=== PATIENT | male | born 1940 | race Caucasian/White ===

== ENCOUNTER → 2016-03-07 | Outpatient (CLI) | payer MEDICARE ==
--- NOTE | 2016-03-08 23:25 | XR ---
EXAMINATION TYPE: XR chest 2V, Left rib series. DATE OF EXAM: 03/07/2016 3:07 PM COMPARISON: None HISTORY: 75-year-old male with cough and mid left lateral rib pain after injury last year. FINDINGS: Chest: The heart is upper limits of normal in size. Atherosclerotic arch calcifications. Mild interst itial prominence. Some fluid thickening the minor fissure. There are small bilateral pleural effusion s with a patchy bibasilar densities. High density nodule seen within the midlungs probably calcified granulomas. Left RIBS: No displaced left rib fracture is seen. IMPRESSION: 1. Correlate for CHF with pulmonary vascular congestion. 2. Small pleural effusions with adjacent bibasilar atelectasis and/or infiltrates. 3. No displaced left rib fracture seen. 4. High density nodules scattered in the mid lungs suggest calcified nodules from prior granulomatous disease.
== END | disposition home or self-care (01) ==
LOC: RADXRYALE 14:43
PROVIDERS: ATTEND Internal Medicine
DX: J90 Pleural effusion, not elsewhere classified (principal); R91.8 Other nonspecific abnormal finding of lung field
CPT/HCPCS: 71020

== ENCOUNTER 2016-03-12 21:26 | Inpatient (IN) | payer MEDICARE ==
[2016-03-12] MEDS ORDERED: NITROGLYCERIN OINT 1 INCH/GM PACKET TOPICAL STA (21:46)
[2016-03-12] MEDS ORDERED: FUROSEMIDE 10 MG/ML 4 ML VIAL IV STA (21:46)
--- NOTE | 2016-03-12 21:56 | ED ---
SOB HPI - General Chief Complaint: Shortness of Breath Stated Complaint: SULAIMAN Time Seen by Provider: 03/12/16 21:37 Source: patient, EMS, RN notes reviewed Mode of arrival: EMS Limitations: no limitations - History of Present Illness Initial Comments: This patient is a 75-year-old man who presents with complaint shortness of breath. He states that the symptoms started a couple of days ago but didn't get much worse tonight. He has also noted some swelling of the bilateral legs. He states that other than that he has not noted any symptoms. Patient is denying fever or chills, cough, chest pain, alterations, lightheadedness or syncope. The patient denies change in urination. Patient denies change in bowel movements including no melena or dark tarry stool. MD Complaint: shortness of breath Onset/Timin -: days(s) Consistency: constant Improves With: oxygen Worsens With: nothing Known History Of: congestive heart failure Treatments Prior to Arrival: oxygen, bronchodilator - Related Data Home Medications Medication Instructions Recorded Confirmed Canagliflozin [Invokana] 300 mg PO DAILY 01/17/14 03/12/16 amLODIPine [Norvasc] 10 mg PO DAILY 01/17/14 03/12/16 metFORMIN HCL [Glucophage] 1,000 mg PO BID 01/17/14 03/12/16 Insulin Aspart [NovoLOG] 6 unit SQ DAILY 03/12/16 03/12/16 Insulin Glargine,Hum.rec.anlog 14 unit SQ BID 03/12/16 03/12/16 [Lantus Solostar] Lisinopril [Zestril] 20 mg PO DAILY 03/12/16 03/12/16 Metoprolol Tartrate [Lopressor] 50 mg PO DAILY 03/12/16 03/12/16 Previous Rx's Medication Instructions Recorded Aspirin 325 mg PO DAILY #30 tab 01/21/14 Atorvastatin [Lipitor] 80 mg PO HS #30 tab 01/21/14 Clopidogrel [Plavix] 75 mg PO DAILY #30 tab 01/21/14 Docusate [Colace] 100 mg PO DAILY PRN #30 cap 01/21/14 Nitroglycerin Sl Tabs [Nitrostat] 0.4 mg SUBLINGUAL Q5M PRN #25 tab 01/21/14 Spironolactone [Aldactone] 25 mg PO DAILY #30 tab 12/03/14 Allergies Allergy/AdvReac Type Severity Reaction Status Date / Time No Known Allergies Allergy Verified 03/12/16 21:33 Review of Systems ROS Statement: Those systems with pertinent positive or pertinent negative responses have been documented in the HPI. ROS Other: All systems not noted in ROS Statement are negative. Constitutional: Denies: fever, chills Respiratory: Reports: dyspnea. Denies: cough, wheezes, hemoptysis Cardiovascular: Reports: orthopnea, edema. Denies: chest pain, palpitations, syncope Gastrointestinal: Denies: abdominal pain, vomiting, melena, hematochezia Genitourinary: Denies: dysuria, hematuria Musculoskeletal: Denies: back pain Skin: Denies: rash Neurological: Denies: headache, weakness, numbness Psychiatric: Reports: anxiety Past Medical History Past Medical History: Coronary Artery Disease (CAD), Chest Pain / Angina, Heart Failure, CVA/TIA, Diabetes Mellitus, GERD/Reflux, Hyperlipidemia, Hypertension, Musculoskeletal Disorder, Osteoarthritis (OA), Prostate Disorder History of Any Multi-Drug Resistant Organisms: None Reported Past Surgical History: No Surgical Hx Reported Past Psychological History: No Psychological Hx Reported Smoking Status: Never smoker Past Alcohol Use History: None Reported Past Drug Use History: None Reported - Past Family History Mother Family Medical History: Coronary Artery Disease (CAD) (Mother at age of 72 from diabetes and coronary artery disease.), Diabetes Mellitus Father Family Medical History: Cancer (Father at age of 66 from lung cancer) Sister(s) Family Medical History: Congestive Heart Failure (CHF), Diabetes Mellitus (2 sisters one with diabetes and congestive heart failure the other sister has diabetes) Brother(s) Family Medical History: Myocardial Infarction (NM) (2 brothers one of them at age of 77 from myocardial infarction.) Daughter(s) Family Medical History: No Reported History (3 daughters no major medical problems.) General Exam Limitations: no limitations General appearance: alert, in distress (Mild respiratory distress with tachypnea ) Head exam: Present: atraumatic, normocephalic Eye exam: Present: normal appearance Respiratory exam: Present: respiratory distress (Acute new), rales (Bilateral lower lung armstrong), other (Tri-Finn position). Absent: wheezes, rhonchi, stridor , decreased breath sounds, prolonged expiratory Cardiovascular Exam: Present: regular rate, normal rhythm, normal heart sounds, gallop. Absent: bradycardia, tachycardia, systolic murmur, diastolic murmur, rubs GI/Abdominal exam: Present: soft. Absent: distended, tenderness, guarding, rebound Extremities exam: Present: normal inspection, normal capillary refill, pedal edema. Absent: calf tenderness Back exam: Present: normal inspection. Absent: CVA tenderness (R), CVA tenderness (L) Neurological exam: Present: alert Skin exam: Present: warm, dry, intact, normal color. Absent: rash, cyanosis, diaphoretic, erythema, petechiae, pallor, mottled Course Vital Signs 03/12/16 03/12/16 03/12/16 21:27 22:33 23:41 Temperature 98 F 98.2 F Pulse Rate 100 77 95 Respiratory 24 16 18 Rate Blood Pressure 151/77 127/71 138/77 O2 Sat by Pulse 99 99 97 Oximetry Medical Decision Making - Lab Data Result diagrams: 03/12/16 21:56 03/12/16 21:56 Lab Results 03/12/16 03/12/16 03/12/16 Range/Units 21:56 21:56 21:56 WBC 8.6 (3.8-10.6) k/uL RBC 3.58 L (4.30-5.90) m/uL Hgb 10.4 L (13.0-17.5) gm/dL Hct 31.8 L (39.0-53.0) % MCV 88.8 (80.0-100.0) fL MCH 29.0 (25.0-35.0) pg MCHC 32.7 (31.0-37.0) g/dL RDW 14.5 (11.5-15.5) % Plt Count 252 (150-450) k/uL Neutrophils % 84 % Lymphocytes % 9 % Monocytes % 5 % Eosinophils % 1 % Basophils % 1 % Neutrophils # 7.2 (1.3-7.7) k/uL Lymphocytes # 0.8 L (1.0-4.8) k/uL Monocytes # 0.4 (0-1.0) k/uL Eosinophils # 0.1 (0-0.7) k/uL Basophils # 0.1 (0-0.2) k/uL Hypochromasia Slight PT 11.3 (9.0-12.0) sec INR 1.1 (<1.1) APTT 24.1 (22.0-30.0) sec D-Dimer 1.46 H (<0.60) mg/L FEU Sodium 141 (137-145) mmol/L Potassium 4.1 (3.5-5.1) mmol/L Chloride 103 (98-107) mmol/L Carbon Dioxide 27 (22-30) mmol/L Anion Gap 11 mmol/L BUN 22 H (9-20) mg/dL Creatinine 1.30 H (0.66-1.25) mg/dL Est GFR (MDRD) Af Amer >60 (>60 ml/min/1.73 sqM) Est GFR (MDRD) Non-Af 54 (>60 ml/min/1.73 sqM) Glucose 367 H (74-99) mg/dL Calcium 8.6 (8.4-10.2) mg/dL Magnesium (1.6-2.3) mg/dL Total Bilirubin 0.9 (0.2-1.3) mg/dL AST 28 (17-59) U/L ALT 37 (21-72) U/L Alkaline Phosphatase 102 (38-126) U/L Troponin I (0.000-0.034) ng/mL NT-Pro-B Natriuret Pep pg/mL Total Protein 6.0 L (6.3-8.2) g/dL Albumin 3.4 L (3.5-5.0) g/dL 03/12/16 03/12/16 03/12/16 Range/Units 21:56 21:56 21:56 WBC (3.8-10.6) k/uL RBC (4.30-5.90) m/uL Hgb (13.0-17.5) gm/dL Hct (39.0-53.0) % MCV (80.0-100.0) fL MCH (25.0-35.0) pg MCHC (31.0-37.0) g/dL RDW (11.5-15.5) % Plt Count (150-450) k/uL Neutrophils % % Lymphocytes % % Monocytes % % Eosinophils % % Basophils % % Neutrophils # (1.3-7.7) k/uL Lymphocytes # (1.0-4.8) k/uL Monocytes # (0-1.0) k/uL Eosinophils # (0-0.7) k/uL Basophils # (0-0.2) k/uL Hypochromasia PT (9.0-12.0) sec INR (<1.1) APTT (22.0-30.0) sec D-Dimer (<0.60) mg/L FEU Sodium (137-145) mmol/L Potassium (3.5-5.1) mmol/L Chloride (98-107) mmol/L Carbon Dioxide (22-30) mmol/L Anion Gap mmol/L BUN (9-20) mg/dL Creatinine (0.66-1.25) mg/dL Est GFR (MDRD) Af Amer (>60 ml/min/1.73 sqM) Est GFR (MDRD) Non-Af (>60 ml/min/1.73 sqM) Glucose (74-99) mg/dL Calcium (8.4-10.2) mg/dL Magnesium 1.7 (1.6-2.3) mg/dL Total Bilirubin (0.2-1.3) mg/dL AST (17-59) U/L ALT (21-72) U/L Alkaline Phosphatase (38-126) U/L Troponin I 0.066 H* (0.000-0.034) ng/mL NT-Pro-B Natriuret Pep 13396 pg/mL Total Protein (6.3-8.2) g/dL Albumin (3.5-5.0) g/dL - EKG Data -: EKG Interpreted by Mt EKG shows normal: sinus rhythm, axis (Normal), intervals (Normal), ST-T waves ( T inversions in leads 1, aVL and V6, suggestive of lateral ischemia.) Rate: tachycardia (Rate 101 bpm) Interpretation: other (Old anterior infarct.) Critical Care Time Critical Care Time: Yes (45 minutes) Disposition Clinical Impression: Congestive heart failure, Hyperglycemia, Elevated d-dimer Disposition: ADMITTED IP TO THIS [facility] Condition: Poor
[2016-03-12 22:11] LABS: Basophils # (A) 0.1 k/uL (0-0.2); Basophils % (A) 1 %; CH 28.2; Eosinophils # (A) 0.1 k/uL (0-0.7); Eosinophils % (A) 1 %; HCT 31.8 % (39.0-53.0); HGB 10.4 gm/dL (13.0-17.5); Hypochromasia Slight; Luc # (Auto) 0.07; Luc % (Auto) 1; Lymphocytes # (A) 0.8 k/uL (1.0-4.8); Lymphocytes % (A) 9 %; MCHC 32.7 g/dL (31.0-37.0); MCV 88.8 fL (80.0-100.0); Mean Platelet Volume 7.2; Monocytes # (A) 0.4 k/uL (0-1.0); Monocytes % (A) 5 %; Neutrophils # (A) 7.2 k/uL (1.3-7.7); Neutrophils % (A) 84 %; RBC 3.58 m/uL (4.30-5.90); RDW 14.5 % (11.5-15.5); WBC 8.6 k/uL (3.8-10.6); WBC (Perox) 8.72
[2016-03-12 22:17] LABS: ALT 37 U/L (21-72); AST 28 U/L (17-59); Alkaline Phosphatase 102 U/L (38-126); Anion Gap 11 mmol/L; Blood Urea Nitrogen 22 mg/dL (9-20); Calcium 8.6 mg/dL (8.4-10.2); Carbon Dioxide 27 mmol/L (22-30); Chloride 103 mmol/L (98-107); Glucose 367 mg/dL (74-99); Non-African American GFR(MDRD) 54 (>60 ml/min/1.73 sqM); Potassium 4.1 mmol/L (3.5-5.1); Sodium 141 mmol/L (137-145); Total Bilirubin 0.9 mg/dL (0.2-1.3)
[2016-03-12 22:24] LABS: INR 1.1 (<1.1); Partial Thromboplastin Time 24.1 sec (22.0-30.0); Prothrombin Time 11.3 sec (9.0-12.0)
--- NOTE | 2016-03-12 22:41 | XR ---
EXAMINATION TYPE: XR chest 1V portable DATE OF EXAM: 03/12/2016 10:15 PM COMPARISON: 03/07/2016 HISTORY: Dyspnea, history of CHF. TECHNIQUE: Single frontal view of the chest is obtained. Portable study upright 03/12/2016, 10:11 PM h ours. FINDINGS: There are mild bilateral pleural effusions and bibasilar lung infiltrates and atelectasis with mild C HF changes with mild perihilar pulmonary edema. There is mild cardiomegaly. No pneumothorax is noted. The osseous structures are intact. IMPRESSION: 1. Mild bilateral pleural effusions and bibasilar lung infiltrates and mild CHF changes with mild wor sening since previous study 03/07/2016.
[2016-03-12] MEDS ORDERED: INSULIN NPL/INSULIN LISPRO 100 UNIT/ML 10 ML VIAL (Humalog 75/25) SQ ONE (22:49)
[2016-03-12] MEDS ORDERED: ENOXAPARIN 100 MG/ML SYRINGE SQ STA (22:50)
[2016-03-13] MEDS ORDERED: DOCUSATE 100 MG CAP PO PRN (00:15)
[2016-03-13] MEDS ORDERED: ENOXAPARIN 40 MG/0.4 ML SYRINGE SQ SCH (00:15)
[2016-03-13] MEDS ORDERED: NITROGLYCERIN SL TABS 0.4 MG TAB SUBLINGUAL PRN (00:15)
[2016-03-13 01:01] LABS: Glucose,Whole Blood 350 mg/dL (75-99)
[2016-03-13] MEDS ORDERED: INSULIN REGULAR 100 UNIT/ML VIAL IV STA (01:14)
[2016-03-13 02:58] LABS: Glucose,Whole Blood 344 mg/dL (75-99)
[2016-03-13] MEDS: FUROSEMIDE 10 MG/ML 4 ML VIAL IV SCH ×4 (03:03→23:26)
[2016-03-13 05:09] LABS: Glucose,Whole Blood 332 mg/dL (75-99)
[2016-03-13] MEDS ORDERED: INSULIN REGULAR 100 UNIT/ML VIAL SQ STA (05:22)
[2016-03-13 06:29] LABS: Glucose,Whole Blood 340 mg/dL (75-99)
[2016-03-13] MEDS: metFORMIN 500 MG TAB PO SCH ×2 (08:05→20:20)
[2016-03-13] MEDS: CLOPIDOGREL 75 MG TAB PO SCH (08:07)
[2016-03-13] MEDS: ASPIRIN 325 MG TAB PO SCH (08:07)
[2016-03-13] MEDS: SPIRONOLACTONE 25 MG TAB PO SCH (08:08)
[2016-03-13] MEDS: INSULIN GLARGINE 100 UNIT/ML 10 ML VIAL SQ SCH ×2 (08:19→21:51)
[2016-03-13] MEDS: INSULIN LISPRO (humaLOG) 300 UNIT/3 ML VIAL SQ SCH ×5 (08:19→21:51)
[2016-03-13] MEDS ORDERED: amLODIPine 10 MG TAB PO SCH (09:00)
[2016-03-13] MEDS ORDERED: METOPROLOL TARTRATE 50 MG TAB PO SCH (09:00)
[2016-03-13] MEDS ORDERED: INSULIN GLARGINE HUM REC ANLOG 14 UNIT SQ SCH (09:00)
[2016-03-13] MEDS ORDERED: LISINOPRIL 20 MG TAB PO SCH (09:00)
--- NOTE | 2016-03-13 09:32 | US ---
EXAMINATION TYPE: US venous doppler duplex LE DATE OF EXAM: 03/13/2016 9:13 AM COMPARISON: NONE CLINICAL HISTORY: Pain. Leg swelling SIDE PERFORMED: Bilateral VESSELS IMAGED: External Iliac Vein (EIV) Common Femoral Vein Deep Femoral Vein Greater Saphenous Vein * Femoral Vein Popliteal Vein Small Saphenous Vein * Proximal Calf Veins (* superficial vessels) IMPRESSION: Right Leg: No evidence of DVT Left Leg: No evidence of DVT
--- NOTE | 2016-03-13 11:54 | NM ---
EXAMINATION TYPE: NM pul vent and perfuse DATE OF EXAM: 03/13/2016 11:42 AM COMPARISON: NONE HISTORY: Shortness of breath TECHNIQUE: Utilizing inhalation of 64.9 mCi Tc 99m DTPA aerosol and intravenous injection of 5.05 mC i of Tc 99m MAA, ventilation and perfusion images are acquired post injection in multiple projections . FINDINGS: There is evidence of patchy central accumulation of radiotracer on the ventilation portion of the kee dy compatible with COPD. There is no evidence for mismatch of perfusion ventilation defect at this ti me. A few small matched defects are seen. IMPRESSION: Low probability for pulmonary embolism.
[2016-03-13] MEDS: NITROGLYCERIN OINT 1 INCH/GM PACKET TOPICAL SCH ×4 (11:59→21:53)
[2016-03-13 12:26] LABS: Hemoglobin A1C 6.7 % (4.2-6.1)
[2016-03-13 13:07] LABS: Glucose,Whole Blood 93 mg/dL (75-99)
--- NOTE | 2016-03-13 15:58 | CONS ---
DATE OF CONSULTATION: Mr. Yunior Ng is a patient of Dr. Barlow and Dr. Beulah Reyes. He has been complaining of increasing shortness of breath and lower extremity edema. He saw Dr. Barlow last week and Dr. Beulah Reyes last week and was complaining of shortness of breath. He denies any breathing trouble while lying down but with minimal exertion he gets short of breath. No chest discomfort. No dizziness, lightheadedness no palpitations. Past history of ischemic cardiomyopathy, old anterior wall myocardial infarction, ejection fraction between 35 to 40%, based upon prior assessments. His last stress test showed ejection fraction of 40%. Echo showed ejection fraction of 35%. Anterior wall hypokinesis. He has had an anterior septal wall infarction in the past. He has a history of diabetes, hypertension, dyslipidemia and congestive heart failure. REVIEW OF SYSTEMS: No fever, chills, rigors. No cough or expectoration. No nausea, vomiting or diarrhea. No hematuria, dysuria. No strokes or seizures. No skin lesions or musculoskeletal complaints. His medication list was reviewed. He is on: 1. Amlodipine. 2. Omeprazole. 3. Lisinopril. 4. Insulin. 5. Plavix. 6. Atorvastatin. 7. Metformin ALLERGIES: No known drug allergies. REVIEW OF SYSTEMS: No fever, chills, rigors. No cough or expectoration. No nausea or vomiting or diarrhea. No hematuria or dysuria. No strokes or seizures. No skin lesions or musculoskeletal complaints. On examination, his blood pressure is 118/69 mmHg, temperature is 97.8 degrees Fahrenheit. Mild hepatojugular reflux, bilateral lower extremity edema moderate. Breath sounds are reduced bilaterally but no crackles or rhonchi. Heart sounds are S1, S2 are soft. No S3 gallop. ABDOMEN: Soft, nontender. EXTREMITIES: Warm. No edema. Please note that he also complains of a gas like bubbly sensation in his belly that goes up into his chest and up into his neck but it starts from his lower abdomen. Last stress test was in 2014. He had ischemic cardiomyopathy with moderate LV dysfunction without any ischemia. His 2-D echo showed ejection fraction of 40%, anterior wall hypokinesis and moderate mitral regurgitation. His 12-lead ECG shows sinus rhythm, normal IA, QRS 118 ms. His heart rate is 97 beats a minute. LABS: Labs are reviewed. His hemoglobin is 10.4. Electrolytes are normal. BUN is 22, creatinine 1.3. GFR is 54, glucose 367. Troponins are 0.066, 0.068, NT-proBNP is 18,800. IMPRESSION: 1. Congestive heart failure, acute on chronic systolic dysfunction with volume overload. 2. Ischemic cardiomyopathy, ejection fraction of 40%, moderate mitral regurgitation known coronary disease with old anterior wall and anteroseptal myocardial infarction. 3. Diabetes. 4. Hypertension. 5. Myocardial injury based upon borderline troponin levels. SUGGEST: 1. TSH level. 2. Continue with IV Lasix 40 mg q.8. 3. Increase in Lisinopril to 20 mg twice daily. 4. Carvedilol 3.125 mg twice daily. 5. Stop amlodipine. 6. Diabetes management by admitting physician. 7. Continue aspirin, atorvastatin, Plavix. He is currently on enoxaparin since he has borderline troponins. 8. Continue spironolactone 25 mg p.o. daily. 9. Based upon his BNP levels, I up-titrate spironolactone and based upon his labs and his vital signs, I will uptitrate his spironolactone and carvedilol.
[2016-03-13 17:56] LABS: Glucose,Whole Blood 82 mg/dL (75-99)
[2016-03-13] MEDS ORDERED: ALPRAZolam 0.25 MG TAB PO PRN (19:21)
[2016-03-13] MEDS ORDERED: TEMAZEPAM 15 MG CAP PO PRN (19:30)
[2016-03-13] MEDS ORDERED: HYDROcodone/APAP 5-325MG 1 EACH TAB PO PRN (19:30)
[2016-03-13] MEDS: ATORVASTATIN 80 MG TAB PO SCH (20:20)
[2016-03-13] MEDS: CARVEDILOL 3.125 MG TAB PO SCH (20:20)
[2016-03-13] MEDS: LISINOPRIL 20 MG TAB PO SCH (20:20)
[2016-03-13] MEDS: ENOXAPARIN 100 MG/ML SYRINGE SQ SCH (20:21)
[2016-03-13 20:55] LABS: Calcium 8.8 mg/dL (8.4-10.2); Magnesium 1.5 mg/dL (1.6-2.3); Potassium 3.9 mmol/L (3.5-5.1)
[2016-03-13 21:31] LABS: Glucose,Whole Blood 136 mg/dL (75-99)
[2016-03-13] MEDS ORDERED: Magnesium Replacement Protocol 1 EACH MISC MISCELLANE PRN (22:08)
[2016-03-13 23:20] LABS: Appearance,Urine Clear (Clear); Bilirubin,Urine Negative (Negative); Glucose,Urine (UA) Negative (Negative); Ketones,Urine Negative (Negative); Leukocyte Esterase,Urine Negative (Negative); Nitrite,Urine Negative (Negative); PH, Urine 6.5 (5.0-8.0); Particle Count 420; Protein,Urine Negative (Negative); RBC,Urine 4 /hpf (0-5); Specific Gravity,Urine 1.009 (1.001-1.035); UA Billing (MACRO vs. MICRO) MICRO; Urobilinogen,Urine <2.0 mg/dL (<2.0); WBC,Urine <1 /hpf (0-5)
[2016-03-13] MEDS: MAGNESIUM SULFATE-D5W PMX 1 GM in DEXTROSE/WATER 1 100ML.BAG IVPB SCH (23:24)
[2016-03-14] MEDS: MAGNESIUM SULFATE-D5W PMX 1 GM in DEXTROSE/WATER 1 100ML.BAG IVPB SCH (01:19)
[2016-03-14 05:12] LABS: Glucose,Whole Blood 63 mg/dL (75-99)
[2016-03-14] MEDS: INSULIN LISPRO (humaLOG) 300 UNIT/3 ML VIAL SQ SCH ×5 (05:51→21:40)
[2016-03-14 06:18] LABS: Glucose,Whole Blood 114 mg/dL (75-99)
[2016-03-14 06:34] LABS: Basophils # (A) 0.1 k/uL (0-0.2); Basophils % (A) 1 %; CH 28.3; CHCM 31.4; Eosinophils # (A) 0.2 k/uL (0-0.7); Eosinophils % (A) 2 %; HCT 30.6 % (39.0-53.0); HDW 2.89; HGB 9.8 gm/dL (13.0-17.5); Hypochromasia Slight; Luc # (Auto) 0.12; Luc % (Auto) 1; Lymphocytes # (A) 1.4 k/uL (1.0-4.8); Lymphocytes % (A) 15 %; MCHC 31.9 g/dL (31.0-37.0); MCV 90.9 fL (80.0-100.0); Mean Platelet Volume 7.5; Monocytes # (A) 0.5 k/uL (0-1.0); Monocytes % (A) 5 %; Neutrophils % (A) 76 %; RBC 3.37 m/uL (4.30-5.90); RDW 14.8 % (11.5-15.5); WBC 9.2 k/uL (3.8-10.6); WBC (Perox) 9.75
[2016-03-14 06:41] LABS: Calcium 8.6 mg/dL (8.4-10.2); Magnesium 1.9 mg/dL (1.6-2.3); Potassium 3.7 mmol/L (3.5-5.1)
[2016-03-14] MEDS: metFORMIN 500 MG TAB PO SCH ×2 (07:18→16:58)
[2016-03-14] MEDS: PANTOPRAZOLE 40 MG TABLET PO SCH (07:19)
[2016-03-14] MEDS: CARVEDILOL 3.125 MG TAB PO SCH ×2 (07:19→16:59)
--- NOTE | 2016-03-14 08:26 | HP ---
DATE OF ADMISSION: CHIEF COMPLAINT: Shortness of breath and leg edema. HISTORY OF PRESENT ILLNESS: This 75-year-old gentleman with a past medical history of multiple medical problems including coronary artery disease, history of congestive heart failure, cerebrovascular accident, transient ischemic attack, diabetes mellitus, GERD, hypertension, hyperlipidemia, history of myocardial infarction, history of degenerative joint disease, history of coronary artery disease and stent being followed by followed by Dr. Reyes in the outpatient setting is complaining of increasing shortness of breath and as well as bilateral leg edema for the last several days. Because of increasing shortness of breath, the patient came to [facility] and found to have CHF acute exacerbation. The patient received IV Lasix with significant improvement. Cardiology is following the patient also. The patient also had history of cardiomyopathy. Ejection fraction found to be 30 to 35% in 2013 with multiple valvular hypokinesis. There is no chest pain. No history of palpations. No headache, loss of consciousness or seizures. After admission the patient also had a venous Doppler of the legs, which is negative for DVT. Pulmonary perfusion imaging and VQ scan was found to show low probability of pulmonary embolism. PAST MEDICAL HISTORY: History of CAD, history of CHF, CVA, TIA, history of chronic systolic dysfunction with ejection fraction of 30 to 35%, history of diabetes mellitus, GERD, hypertension, hyperlipidemia, history of myocardial infarction, history of coronary artery disease, stent. Medications prior to admission include: 1. Norvasc 10 mg p.o. daily. 2. Omeprazole 20 mg daily. 3. Zestril 20 mg daily. 4. NovoLog daily. 5. Lantus 40 units subcu b.i.d. 6. Plavix 75 mg p.o. daily. 7. Lipitor 80 mg q.h.s. ALLERGIES: None. FAMILY HISTORY: History of coronary artery disease. SOCIAL HISTORY: No history of smoking, no history of alcohol intake. REVIEW OF SYSTEMS: ENT: No diminished vision or hearing. CARDIOVASCULAR: As mentioned earlier. RESPIRATORY: As mentioned earlier. GI: No nausea. : No dysuria. NERVOUS SYSTEM: No numbness or weakness. ALLERGY/IMMUNOLOGY: No asthma or hayfever. MUSCULOSKELETAL: As mentioned earlier. HEMATOLOGY/ONCOLOGY: No history of anemia. ENDOCRINE: Diabetes. CONSTITUTIONAL: As mentioned earlier. DERMATOLOGY: Negative. RHEUMATOLOGY: Negative. PSYCHIATRY: As mentioned earlier. PHYSICAL EXAMINATION: Alert and oriented x3. Pulse is 60, blood pressure 118/60, respirations 16, temperature 97.8, pulse ox 90% on room air. HEENT: Conjunctivae normal. NECK: No jugular venous distention. CARDIOVASCULAR: S1 and S2, muffled. S3 present. Dyskinesia, also present. RESPIRATORY: Breath sounds diminished at the bases. A few scattered rhonchi and crackles. ABDOMEN: Soft, Mild diffuse distention. Nontender LEGS: Bilateral leg edema. NERVOUS SYSTEM: Higher function as mentioned. Moves all four limbs. No focal motor or sensory deficits. LYMPHATIC: No lymphadenopathy in the neck, axillae or groin. SKIN: No ulcer, rash or bleeding. LABS: The troponin is 0.68, hemoglobin 10.4. TSH is 4.850, albumin 3.4. Chest x-ray showed pleural effusion and congestive heart failure. EKG showed nonprogression R waves. ASSESSMENT: 1. Congestive heart failure acute exacerbation with chronic systolic dysfunction, ejection fraction 30 to 35% with possible cardiomyopathy. 2. Anemia, normocytic, anemia of chronic disease. 3. Increased creatinine with possible acute renal failure, possible prerenal. 4. Troponin 0.068, rule out acute coronary syndrome. 5. Elevated NT-proBNP at 20,700. 6. High TSH, rule out hypothyroidism. 7. History of coronary artery disease. 8. History of congestive heart failure. 9. History of cerebrovascular accident, transient ischemic attack. 10. Diabetes mellitus type 2. 11. Gastroesophageal reflux disease. 12. Hypertension. 13. Hyperlipidemia. 14. History of myocardial infarction. 15. History of degenerative joint disease. 16. History of prostate disorder. 17. History of coronary artery disease and stent. 18. FULL CODE. RECOMMENDATIONS AND DISCUSSION: In this 75-year-old gentleman who presented with multiple complex medical issues, will monitor the patient closely, continue the current medications, continue symptomatic treatment. Will initiate IV Lasix closely. Monitor fluid and electrolyte balance closely. Monitor blood sugars closely. Resume the home medications. Monitor creatinine closely. Otherwise, cardiology consultation. I would also recommend FT4 also. Otherwise, continue to monitor. Prognosis guarded. Further recommendations to follow. A copy of dictation forwarded to Dr. Reyes who is the primary physician. 2-D echo will also be suggested. CALI
[2016-03-14] MEDS: LISINOPRIL 20 MG TAB PO SCH ×2 (09:58→21:40)
[2016-03-14] MEDS: INSULIN GLARGINE 100 UNIT/ML 10 ML VIAL SQ SCH ×2 (09:58→21:39)
[2016-03-14] MEDS: SPIRONOLACTONE 25 MG TAB PO SCH (09:58)
[2016-03-14] MEDS: FUROSEMIDE 10 MG/ML 4 ML VIAL IV SCH ×3 (10:05→23:47)
[2016-03-14] MEDS: ENOXAPARIN 100 MG/ML SYRINGE SQ SCH ×2 (10:25→21:39)
[2016-03-14] MEDS: CLOPIDOGREL 75 MG TAB PO SCH (10:25)
[2016-03-14] MEDS: ASPIRIN 325 MG TAB PO SCH (10:25)
[2016-03-14] MEDS: NITROGLYCERIN OINT 1 INCH/GM PACKET TOPICAL SCH ×2 (10:30→11:36)
[2016-03-14 11:44] LABS: Glucose,Whole Blood 84 mg/dL (75-99)
--- NOTE | 2016-03-14 15:05 | P.PN ---
Subjective Principal diagnosis: CHF This is a pleasant 75-year-old gentleman with history of prior TIA, diabetes, hypertension, ischemic cardiomyopathy, prior anterior wall AL, hyperlipidemia, GERD, who presented to the hospital with symptoms of progressively worsening shortness of breath. He was initiated on IV Lasix. Echocardiogram with Doppler study which was performed in 2013 revealed an ejection fraction of 30-35%. A repeat echo has been requested here. Hemoglobin today 9.8, creatinine 1.5. Patient was noted to have some nonsustained ventricular tachycardia on the monitor. Potassium 3.7 mag level I.9 Objective - Vital Signs Vital signs: Vital Signs Temp 98.1 F 03/14/16 12:00 Pulse 82 03/14/16 12:00 Resp 16 03/14/16 12:00 BP 108/61 03/14/16 12:00 Pulse Ox 96 03/14/16 12:00 Intake & Output 03/13/16 03/14/16 03/14/16 18:59 06:59 18:59 Intake Total 20 Output Total 800 1650 500 Balance -800 -1650 -480 Weight 94.3 kg Intake: Intake, IV Titration 20 Amount Magnesium Sulfate-D5w Pmx 20 1 gm In Dextrose/Water 1 100ml.bag @ 100 mls/hr IVPB Q1H NANCIE Rx#: [id number] Output: Urine 800 1650 500 Other: Voiding Method Urinal Urinal # Voids 2 1 # Bowel Movements 1 - Exam PHYSICAL EXAMINATION: HEENT: Head is atraumatic, normocephalic. Pupils equal, round. Neck is supple. There is no elevated jugular venous pressure. HEART EXAMINATION: Heart S1, S2 normal. No murmur or gallop heard. CHEST EXAMINATION: Circumflex clear with mild diminished air entry to posterior bases. ABDOMEN: Soft, nontender. Bowel sounds are heard. No organomegaly noted. EXTREMITIES: 2+ peripheral pulses with trace evidence of peripheral edema and no calf tenderness noted. NEUROLOGIC patient is awake, alert and oriented -3. . - Labs CBC & Chem 7: 03/14/16 06:10 03/14/16 06:10 Labs: Abnormal Lab Results - Last 24 Hours (Table) 03/13/16 03/13/16 03/13/16 Range/Units 20:13 21:29 23:00 RBC (4.30-5.90) m/uL Hgb (13.0-17.5) gm/dL Hct (39.0-53.0) % BUN 26 H (9-20) mg/dL Creatinine 1.56 H (0.66-1.25) mg/dL Glucose 129 H (74-99) mg/dL POC Glucose (mg/dL) 136 H (75-99) mg/dL Magnesium 1.5 L (1.6-2.3) mg/dL Urine Blood Trace H (Negative) 03/14/16 03/14/16 03/14/16 Range/Units 05:10 06:10 06:10 RBC 3.37 L (4.30-5.90) m/uL Hgb 9.8 L (13.0-17.5) gm/dL Hct 30.6 L (39.0-53.0) % BUN 28 H (9-20) mg/dL Creatinine 1.50 H (0.66-1.25) mg/dL Glucose 110 H (74-99) mg/dL POC Glucose (mg/dL) 63 L (75-99) mg/dL Magnesium (1.6-2.3) mg/dL Urine Blood (Negative) 03/14/16 Range/Units 06:15 RBC (4.30-5.90) m/uL Hgb (13.0-17.5) gm/dL Hct (39.0-53.0) % BUN (9-20) mg/dL Creatinine (0.66-1.25) mg/dL Glucose (74-99) mg/dL POC Glucose (mg/dL) 114 H (75-99) mg/dL Magnesium (1.6-2.3) mg/dL Urine Blood (Negative) Assessment and Plan Plan: Assessment and Plan #1 systolic congestive heart failure acute on chronic #2 ischemic cardio myopathy #3 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 Decrease aspirin 81 mg. DC Nitropaste. Check lytes BUN creatinine and daily weight in the morning. Continue to monitor for arrhythmias. DNP note has been reviewed, I agree with a documented findings and plan of care. Patient was seen and examined.
[2016-03-14 17:10] LABS: Glucose,Whole Blood 93 mg/dL (75-99)
--- NOTE | 2016-03-14 19:41 | PN ---
DATE OF SERVICE: 03/14/2016 This 75-year-old gentleman who was admitted with CHF acute exacerbation is improved slightly. No chest pain, no palpitations. No fever. On exam, alert and oriented x3. Pulse 68, blood pressure 116/61, respirations 16, temperature 98.1. Pulse ox 96% on room air. HEENT: Conjunctivae normal. NECK: No jugular venous distention. CARDIOVASCULAR: S1 and S2, muffled. RESPIRATORY: Breath sounds diminished at the bases. A few rhonchi, no crackles. ABDOMEN: Soft, nontender. LEGS: Bilateral leg edema. NERVOUS SYSTEM: No focal deficits. LABS: Hemoglobin 9.8, platelets are normal. Otherwise, creatinine is 1.5. ASSESSMENT: 1. Congestive heart failure acute exacerbation with acute on chronic systolic dysfunction, ejection fraction 30 to 35% with possible cardiomyopathy. 2. Anemia, normocytic, anemia of chronic disease. 3. Increased creatinine with possible acute renal failure, possibly prerenal. 4. Troponin 0.06 rule out acute coronary syndrome. 5. Elevated NT-proBNP at 20,700. 6. High TSH with normal TF4, possible sick euthyroid syndrome. 7. History of coronary artery disease. 8. History of congestive heart failure. 9. History of cerebrovascular accident, transient ischemic attack. 10. Diabetes mellitus type 2. 11. History of gastroesophageal reflux disease. 12. Hypertension. 13. Hyperlipidemia. 14. History of myocardial infarction. 15. History of degenerative joint disease. 16. History of prostate cancer. 17. History of coronary artery disease, stent. RECOMMENDATIONS AND DISCUSSION: I recommend to continue the current medications, continue monitoring and symptomatic treatment. Continue with the diuretics. Closely follow with Cardiology. Monitor renal functions closely. Increase ambulation. Troponins are noted, indeterminate. Further recommendations to follow. Prognosis guarded.
[2016-03-14 21:00] LABS: Glucose,Whole Blood 104 mg/dL (75-99)
[2016-03-14] MEDS: ATORVASTATIN 80 MG TAB PO SCH (21:39)
[2016-03-14 23:37] LABS: Glucose,Whole Blood 140 mg/dL (75-99)
[2016-03-15 04:32] LABS: Glucose,Whole Blood 56 mg/dL (75-99)
[2016-03-15 04:48] LABS: Glucose,Whole Blood 63 mg/dL (75-99)
[2016-03-15 05:04] LABS: Glucose,Whole Blood 82 mg/dL (75-99)
[2016-03-15 06:09] LABS: Glucose,Whole Blood 162 mg/dL (75-99)
[2016-03-15 06:38] LABS: Basophils % (A) 1 %; CH 28.2; CHCM 30.8; Eosinophils # (A) 0.2 k/uL (0-0.7); Eosinophils % (A) 3 %; HDW 2.75; HGB 9.8 gm/dL (13.0-17.5); Hypochromasia Moderate; Luc # (Auto) 0.08; Luc % (Auto) 1; Lymphocytes # (A) 0.8 k/uL (1.0-4.8); Lymphocytes % (A) 15 %; MCH 29.2 pg (25.0-35.0); MCHC 31.7 g/dL (31.0-37.0); MCV 92.1 fL (80.0-100.0); Mean Platelet Volume 7.1; Monocytes # (A) 0.4 k/uL (0-1.0); Monocytes % (A) 7 %; Neutrophils % (A) 73 %; RBC 3.37 m/uL (4.30-5.90); RDW 14.6 % (11.5-15.5); WBC 5.5 k/uL (3.8-10.6); WBC (Perox) 6.21
[2016-03-15 06:51] LABS: Calcium 8.5 mg/dL (8.4-10.2); Potassium 3.6 mmol/L (3.5-5.1)
[2016-03-15] MEDS: metFORMIN 500 MG TAB PO SCH (07:02)
[2016-03-15] MEDS: CARVEDILOL 3.125 MG TAB PO SCH ×2 (07:02→17:20)
[2016-03-15] MEDS: PANTOPRAZOLE 40 MG TABLET PO SCH (07:03)
[2016-03-15] MEDS: INSULIN LISPRO (humaLOG) 300 UNIT/3 ML VIAL SQ SCH ×5 (07:19→20:59)
[2016-03-15] MEDS: INSULIN GLARGINE 100 UNIT/ML 10 ML VIAL SQ SCH ×2 (08:04→21:03)
[2016-03-15] MEDS: FUROSEMIDE 10 MG/ML 4 ML VIAL IV SCH ×3 (08:07→23:42)
[2016-03-15] MEDS: ENOXAPARIN 100 MG/ML SYRINGE SQ SCH ×2 (08:07→20:19)
[2016-03-15] MEDS: SPIRONOLACTONE 25 MG TAB PO SCH (08:08)
[2016-03-15] MEDS: CLOPIDOGREL 75 MG TAB PO SCH (08:08)
[2016-03-15] MEDS: LISINOPRIL 20 MG TAB PO SCH ×2 (08:08→20:18)
[2016-03-15] MEDS: ASPIRIN 81 MG CHEW PO SCH (08:08)
--- NOTE | 2016-03-15 11:01 | ECHOF ---
Referral Reason:sob MEASUREMENTS -------- HEIGHT: 182.9 cm WEIGHT: 93.9 kg BP: RVIDd: 2.7 cm (< 3.3) IVSd: 1.0 cm (0.6 - 1.1) LVIDd: 6.3 cm (3.9 - 5.3) LVPWd: 1.6 cm (0.6 - 1.1) IVSs: 0.9 cm LVIDs: 5.7 cm LVPWs: 1.3 cm LA Diam: 5.1 cm (2.7 - 3.8) LAESV Index (A-L): 57.05 ml/m Ao Diam: 3.2 cm (2.0 - 3.7) AV Cusp: 1.8 cm (1.5 - 2.6) LA Diam: 5.1 cm (2.7 - 3.8) MV EXCURSION: 11.323 mm (> 18.000) MV EF SLOPE: 36 mm/s (70 - 150) EPSS: 2.2 cm MV E Ranjit: 0.98 m/s MV DecT: 135 ms MV A Ranjit: 0.29 m/s MV E/A Ratio: 3.41 RAP: 5.00 mmHg RVSP: 60.17 mmHg FINDINGS -------- Sinus rhythm. This was a technically adequate study. There is severe global hypokinesis of LV . Overall left ventricular systolic function is severely impaired with, an EF between 20 - 25 %. Mid anterior LV wall motion is akinetic. Mid lateral LV wall motion is akinetic. Mid anteroseptal LV wall motion is akinetic. Apical anterior LV wall motion is akinetic. Apical lateral LV wall motion is akinetic. LA is severely dilated >40 ml/m2 Echogenic area RA wall VS? There is mild aortic valve sclerosis. There is no evidence of aortic regurgitation. Mild mitral annular calcification present. Faweqnri-wl-[id number] mitral regurgitation is present. Mild tricuspid regurgitation present. There is moderate to severe pulmonary hypertension. The right ventricular systolic pressure, as measured by Doppler, is 60.17mmHg. There is no pulmonic regurgitation present. The aortic root size is normal. There is a small, generalized pericardial effusion present. There appears to be mobile massin the anterior mediastinum. The importance of this finding is not clear. If clinically indicated ,a computed tomography scan of the chest could be obtained CONCLUSIONS -------- 1. There is severe global hypokinesis of LV . 2. There is mild aortic valve sclerosis. 3. Mild mitral annular calcification present. 4. Wbaujinn-zg-tncgue mitral regurgitation is present. 5. Mild tricuspid regurgitation present. 6. There is moderate to severe pulmonary hypertension. 7. The right ventricular systolic pressure, as measured by Doppler, is 60.17mmHg. 8. There is a small, generalized pericardial effusion present. 9. Overall left ventricular systolic function is severely impaired with, an EF between 20 - 25 %. 10. Mid anterior LV wall motion is akinetic. 11. Mid lateral LV wall motion is akinetic. 12. Mid anteroseptal LV wall motion is akinetic. 13. Apical anterior LV wall motion is akinetic. 14. Apical lateral LV wall motion is akinetic. 15. LA is severely dilated >40 ml/m2 16. Echogenic area RA wall VS? FUR DRESSER: Talisha Rodriguez RDCS
[2016-03-15 11:04] LABS: Glucose,Whole Blood 205 mg/dL (75-99)
[2016-03-15 12:07] LABS: Glucose,Whole Blood 185 mg/dL (75-99)
[2016-03-15 13:04] VITALS: BMI 27.5
--- NOTE | 2016-03-15 15:48 | P.PN ---
Subjective Principal diagnosis: CHF This is a pleasant 75-year-old gentleman with history of prior TIA, diabetes, hypertension, ischemic cardiomyopathy, prior anterior wall [place], hyperlipidemia, GERD, who presented to the hospital with symptoms of progressively worsening shortness of breath. He was initiated on IV Lasix. Echocardiogram with Doppler study which was performed in 2013 revealed an ejection fraction of 30-35%. Echo performed here revealed an ejection fraction of 20%. Weight is down 2 kg today, patient continues to diurese well on IV Lasix. Overall feeling much better today. Creatinine today 1.5, hemoglobin 9.8. We will continue the IV Lasix, check lytes BUN and creatinine and weights in the morning. Objective - Vital Signs Vital signs: Vital Signs Temp 97.8 F 03/15/16 12:00 Pulse 78 03/15/16 12:00 Resp 14 03/15/16 12:00 BP 123/68 03/15/16 12:00 Pulse Ox 96 03/15/16 12:00 Intake & Output 03/14/16 03/15/16 03/15/16 18:59 06:59 18:59 Intake Total 20 480 Output Total 500 1850 950 Balance -480 -1850 -470 Weight 92.1 kg 92.1 kg Intake: Intake, IV Titration 20 Amount Magnesium Sulfate-D5w Pmx 20 1 gm In Dextrose/Water 1 100ml.bag @ 100 mls/hr IVPB Q1H [facility] Rx#: [id number] Oral 480 Output: Urine 500 1850 950 Other: Voiding Method Urinal Toilet Toilet Urinal Urinal # Voids 1 # Bowel Movements 1 - Exam PHYSICAL EXAMINATION: HEENT: Head is atraumatic, normocephalic. Pupils equal, round. Neck is supple. There is no elevated jugular venous pressure. HEART EXAMINATION: Heart S1, S2 normal. No murmur or gallop heard. CHEST EXAMINATION: Circumflex clear with mild diminished air entry to posterior bases. ABDOMEN: Soft, nontender. Bowel sounds are heard. No organomegaly noted. EXTREMITIES: 2+ peripheral pulses with trace evidence of peripheral edema and no calf tenderness noted. NEUROLOGIC patient is awake, alert and oriented -3. . - Labs CBC & Chem 7: 03/15/16 06:04 03/15/16 06:04 Labs: Abnormal Lab Results - Last 24 Hours (Table) 01/03/14/16 03/15/16 Range/Units 20:58 23:33 04:31 RBC (4.30-5.90) m/uL Hgb (13.0-17.5) gm/dL Hct (39.0-53.0) % Lymphocytes # (1.0-4.8) k/uL BUN (9-20) mg/dL Creatinine (0.66-1.25) mg/dL Glucose (74-99) mg/dL POC Glucose (mg/dL) 104 H 140 H 56 L (75-99) mg/dL 03/15/16 03/15/16 03/15/16 Range/Units 04:46 06:04 06:04 RBC 3.37 L (4.30-5.90) m/uL Hgb 9.8 L (13.0-17.5) gm/dL Hct 31.0 L (39.0-53.0) % Lymphocytes # 0.8 L (1.0-4.8) k/uL BUN 31 H (9-20) mg/dL Creatinine 1.53 H (0.66-1.25) mg/dL Glucose 145 H (74-99) mg/dL POC Glucose (mg/dL) 63 L (75-99) mg/dL 03/15/16 03/15/16 03/15/16 Range/Units 06:08 10:44 11:59 RBC (4.30-5.90) m/uL Hgb (13.0-17.5) gm/dL Hct (39.0-53.0) % Lymphocytes # (1.0-4.8) k/uL BUN (9-20) mg/dL Creatinine (0.66-1.25) mg/dL Glucose (74-99) mg/dL POC Glucose (mg/dL) 162 H 205 H 185 H (75-99) mg/dL Assessment and Plan Plan: Assessment and Plan #1 systolic congestive heart failure acute on chronic #2 ischemic cardio myopathy #3 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 Decrease aspirin 81 mg. DC Nitropaste. Check lytes BUN creatinine and daily weight in the morning. Continue to monitor for arrhythmias. DNP note has been reviewed, I agree with a documented findings and plan of care. Patient was seen and examined.
[2016-03-15 17:01] LABS: Glucose,Whole Blood 89 mg/dL (75-99)
[2016-03-15] MEDS: ATORVASTATIN 80 MG TAB PO SCH (20:18)
[2016-03-15 20:45] LABS: Glucose,Whole Blood 113 mg/dL (75-99)
--- NOTE | 2016-03-15 22:51 | PN ---
Patient is a 75-year-old with CHF exacerbation. Patient is severely ( ) with ejection fraction of ( ) less than 10%, and patient continues to be on IV Lasix at 40 IV q.8 hourly. Patient is close to euvolemia, and Cardiology is recommending one more day for IV diuresis. REVIEW OF SYSTEMS: CARDIOVASCULAR: No chest pain, no orthopnea, no PND, no palpitations. PULMONARY: Denied any shortness of breath. No cough or hemoptysis. GASTROINTESTINAL: No diarrhea, nausea or vomiting. No abdominal pain. Normoactive bowel sounds. NEUROLOGIC: No headaches, no weakness, no numbness. Medications were reviewed. PHYSICAL EXAMINATION: VITAL SIGNS: Temperature 97.0, pulse of 84, respiratory rate of 18, blood pressure 135/74. Saturating at 92% on room air. GENERAL: The patient is alert and oriented x3, not in any acute distress. Well developed, well nourished. HEENT: Pupils are round and equally reacting to light. EOMI. No scleral icterus. No conjunctival pallor. Normocephalic, atraumatic. No pharyngeal erythema. No thyromegaly. CARDIOVASCULAR: Patient has very minimal elevated JVD. I did not clearly hear an S3. S1, S2 present. No rubs or gallops were appreciated. PULMONARY: Chest is clear to auscultation, no wheezing or crackles. ABDOMEN: Soft, nontender, nondistended, normoactive bowel sounds. No palpable organomegaly. MUSCULOSKELETAL: No joint swelling or deformity. EXTREMITIES: No cyanosis, clubbing, or pedal edema. NEUROLOGICAL: Gross neurological examination did not reveal any focal deficits. SKIN: No rashes. LABORATORY DATA: CBC, CMP are abnormal for minimally elevated BUN and creatinine of 28 and 1.5, respectively. Hemoglobin remains stable at 9.8. ASSESSMENT AND PLAN: 1. Congestive heart failure with chronic systolic dysfunction with acute exacerbation. Patient's ( ) ejection fraction is around 10%. 2. Normocytic anemia; anemia of chronic disease. 3. Acute renal failure secondary to cardiorenal etiology. Electrolytes and kidney function and I&O need to be closely monitored. 4. Minimal troponin elevation secondary to congestive heart failure itself. 5. Type 2 diabetes mellitus. 6. Cerebrovascular accident. 7. Hypertension. For above-mentioned chronic medical problems, we will go ahead and continue home medications. Patient does have history of coronary artery disease. Patient probably has ischemic cardiomyopathy. PLAN: As mentioned above. Patient is on high dose of SANCHEZ inhibitor as well, which should help him.
[2016-03-16 02:54] LABS: Glucose,Whole Blood 83 mg/dL (75-99)
[2016-03-16] MEDS: NON-FORMULARY DRUG (Canagliflozin [Invokana] 300 MG) PO SCH ×2 (04:18→04:19)
[2016-03-16 06:31] LABS: Glucose,Whole Blood 105 mg/dL (75-99)
[2016-03-16] MEDS: INSULIN LISPRO (humaLOG) 300 UNIT/3 ML VIAL SQ SCH ×5 (06:33→20:55)
[2016-03-16] MEDS: PANTOPRAZOLE 40 MG TABLET PO SCH (06:34)
[2016-03-16] MEDS: CARVEDILOL 3.125 MG TAB PO SCH ×2 (06:35→17:19)
[2016-03-16 07:07] LABS: Basophils % (A) 1 %; CH 28.3; Eosinophils # (A) 0.2 k/uL (0-0.7); Eosinophils % (A) 3 %; HCT 30.8 % (39.0-53.0); HDW 2.86; Hypochromasia Slight; Luc # (Auto) 0.06; Luc % (Auto) 1; Lymphocytes # (A) 1.1 k/uL (1.0-4.8); Lymphocytes % (A) 21 %; MCH 28.8 pg (25.0-35.0); MCHC 32.3 g/dL (31.0-37.0); MCV 89.1 fL (80.0-100.0); Mean Platelet Volume 7.1; Monocytes # (A) 0.3 k/uL (0-1.0); Monocytes % (A) 7 %; Neutrophils # (A) 3.4 k/uL (1.3-7.7); Neutrophils % (A) 67 %; RBC 3.45 m/uL (4.30-5.90); RDW 14.8 % (11.5-15.5); WBC (Perox) 5.49
[2016-03-16 07:27] LABS: Calcium 8.9 mg/dL (8.4-10.2); Potassium 3.5 mmol/L (3.5-5.1)
[2016-03-16] MEDS: FUROSEMIDE 10 MG/ML 4 ML VIAL IV SCH (09:01)
[2016-03-16] MEDS: ENOXAPARIN 100 MG/ML SYRINGE SQ SCH (09:01)
[2016-03-16] MEDS: SPIRONOLACTONE 25 MG TAB PO SCH (09:02)
[2016-03-16] MEDS: CLOPIDOGREL 75 MG TAB PO SCH (09:02)
[2016-03-16] MEDS: LISINOPRIL 20 MG TAB PO SCH ×2 (09:02→20:37)
[2016-03-16] MEDS: ASPIRIN 81 MG CHEW PO SCH (09:02)
[2016-03-16] MEDS: INSULIN GLARGINE 100 UNIT/ML 10 ML VIAL SQ SCH (09:24)
[2016-03-16] MEDS ORDERED: Potassium Replacement Protocol 1 EACH MISC MISCELLANE PRN (10:24)
[2016-03-16] MEDS ORDERED: POTASSIUM CHLORIDE ER 20 MEQ TAB.ER PO SCH (11:00)
[2016-03-16 11:58] LABS: Glucose,Whole Blood 199 mg/dL (75-99)
--- NOTE | 2016-03-16 14:32 | P.PN ---
Subjective Principal diagnosis: CHF This is a pleasant 75-year-old gentleman with history of prior TIA, diabetes, hypertension, ischemic cardiomyopathy, prior anterior wall [place], hyperlipidemia, GERD, who presented to the hospital with symptoms of progressively worsening shortness of breath. He was initiated on IV Lasix. Echocardiogram with Doppler study which was performed in 2013 revealed an ejection fraction of 30-35%. Echo performed here revealed an ejection fraction of 20%. Weight is down 4 kg today, patient continues to diurese well on IV Lasix. Overall feeling much better today. Creatinine today 1.5, hemoglobin 10.0. We will discontinue the IV Lasix, start the patient on oral diuretics. Patient may be able to be discharged from cardiology's perspective, a follow-up appointment will be made with Dr. Barlow in the office. We did have a lengthy discussion with the patient today regarding the need for AICD as an outpatient. This will be discussed further with the patient in the office post discharge as well. Objective - Vital Signs Vital signs: Vital Signs Temp 97.2 F L 03/16/16 11:36 Pulse 68 03/16/16 11:36 Resp 16 03/16/16 11:36 BP 112/61 03/16/16 11:36 Pulse Ox 95 03/16/16 11:36 Intake & Output 03/15/16 03/16/16 03/16/16 18:59 06:59 18:59 Intake Total 480 20 Output Total 1550 3450 1300 Balance -1070 -3430 -1300 Weight 92.1 kg 88 kg Intake: IV 20 0.9% NS FLUSH 20 Oral 480 Output: Urine 1550 3450 1300 Other: Voiding Method Toilet Urinal Urinal Urinal # Voids 1 1 # Bowel Movements 1 - Exam PHYSICAL EXAMINATION: HEENT: Head is atraumatic, normocephalic. Pupils equal, round. Neck is supple. There is no elevated jugular venous pressure. HEART EXAMINATION: Heart S1, S2 normal. No murmur or gallop heard. CHEST EXAMINATION: Circumflex clear with mild diminished air entry to posterior bases. ABDOMEN: Soft, nontender. Bowel sounds are heard. No organomegaly noted. EXTREMITIES: 2+ peripheral pulses with trace evidence of peripheral edema and no calf tenderness noted. NEUROLOGIC patient is awake, alert and oriented -3. . - Labs CBC & Chem 7: 03/16/16 06:21 03/16/16 06:21 Labs: Abnormal Lab Results - Last 24 Hours (Table) 03/15/16 03/16/16 03/16/16 Range/Units 20:36 06:15 06:21 RBC 3.45 L (4.30-5.90) m/uL Hgb 10.0 L (13.0-17.5) gm/dL Hct 30.8 L (39.0-53.0) % Carbon Dioxide (22-30) mmol/L BUN (9-20) mg/dL Creatinine (0.66-1.25) mg/dL POC Glucose (mg/dL) 113 H 105 H (75-99) mg/dL 03/16/16 03/16/16 Range/Units 06:21 11:56 RBC (4.30-5.90) m/uL Hgb (13.0-17.5) gm/dL Hct (39.0-53.0) % Carbon Dioxide 32 H (22-30) mmol/L BUN 29 H (9-20) mg/dL Creatinine 1.58 H (0.66-1.25) mg/dL POC Glucose (mg/dL) 199 H (75-99) mg/dL Assessment and Plan Plan: Assessment and Plan #1 systolic congestive heart failure acute on chronic #2 ischemic cardio myopathy #3 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 A follow-up appointment will be made with Dr. Romo in the office. Patient will require implantation of an AICD as an outpatient. DNP note has been reviewed, I agree with a documented findings and plan of care. Patient was seen and examined.
[2016-03-16] MEDS ORDERED: SPIRONOLACTONE 25 MG TAB PO ONE (15:15)
--- NOTE | 2016-03-16 15:18 | P.PN ---
Progress Note - Text This is an addendum to the progress note dictated earlier today. Patient has been having runs of nonsustained ventricular tachycardia, potassium this morning was 3.5 which was replaced. Because of the patient's severe cardiomyopathy and runs of nonsustained T, we will hold off on discharging him home today, we will order a LifeVest and consider discharge home tomorrow. DNP note has been reviewed, I agree with a documented findings and plan of care. Patient was seen and examined.
[2016-03-16] MEDS: HEPARIN SODIUM,PORCINE 5,000 UNIT/ML 1 ML VIAL SQ SCH ×2 (15:59→23:32)
[2016-03-16] MEDS: FUROSEMIDE 40 MG TAB PO SCH (15:59)
[2016-03-16 16:44] LABS: Glucose,Whole Blood 162 mg/dL (75-99)
[2016-03-16] MEDS ORDERED: INSULIN LISPRO (humaLOG) 300 UNIT/3 ML VIAL SQ SCH (17:30)
--- NOTE | 2016-03-16 18:04 | PN ---
Patient is a 75-year-old admitted with congestive heart failure exacerbation. Has EF of around 10% and patient is fairly euvolemic at this point of time. Patient has episodes of V. tach. Cardiology is recommending life vest and down the line the patient will need an AICD. REVIEW OF SYSTEMS: CARDIOVASCULAR: No chest pain, no orthopnea, no PND, no palpitations. PULMONARY: Denied any shortness of breath. No cough or hemoptysis. GASTROINTESTINAL: No diarrhea, nausea or vomiting. No abdominal pain. Normoactive bowel sounds. NEUROLOGIC: No headaches, no weakness, no numbness. Medications were reviewed. PHYSICAL EXAMINATION: VITAL SIGNS: Temperature 97.2, pulse of 68, respiratory rate of 16, blood pressure is 112/61, saturating at 95% on room air. GENERAL: The patient is alert and oriented x3, not in any acute distress. Well developed, well nourished. HEENT: Pupils are round and equally reacting to light. EOMI. No scleral icterus. No conjunctival pallor. Normocephalic, atraumatic. No pharyngeal erythema. No thyromegaly. CARDIOVASCULAR: S1 and S2 present. No murmurs, rubs, or gallops. PULMONARY: Chest is clear to auscultation, no wheezing or crackles. ABDOMEN: Soft, nontender, nondistended, normoactive bowel sounds. No palpable organomegaly. MUSCULOSKELETAL: No joint swelling or deformity. EXTREMITIES: No cyanosis, clubbing, or pedal edema. NEUROLOGICAL: Gross neurological examination did not reveal any focal deficits. SKIN: No rashes. LABORATORY DATA: BUN and creatinine fairly stable at 29 and 1.58. Medication changes include changing Lasix to oral. ASSESSMENT AND PLAN: 1. Congestive heart failure, chronic systolic dysfunction with acute exacerbation. 2. Episodes of ventricular tachycardia. 3. Acute renal failure secondary to cardiorenal syndrome. 4. Acute renal failure. Patient has a possibility of chronic kidney disease as well. 5. Minimal troponin elevation secondary to congestive heart failure. 6. Type 2 diabetes mellitus. 7. Cerebrovascular accident. 8. Hypertension. PLAN: Continue with diuretic therapy. Patient is awaiting left vest. Monitor kidney function, I's and O's. Possibility of discharge tomorrow once he receives the life vest. Patient is fairly euvolemic at this point of time.
[2016-03-16] MEDS: ATORVASTATIN 80 MG TAB PO SCH (20:37)
[2016-03-16 20:55] LABS: Glucose,Whole Blood 58 mg/dL (75-99)
[2016-03-16] MEDS ORDERED: INSULIN GLARGINE 100 UNIT/ML 10 ML VIAL SQ SCH (21:00)
[2016-03-16 21:22] LABS: Glucose,Whole Blood 63 mg/dL (75-99)
[2016-03-17 02:03] LABS: Glucose,Whole Blood 128 mg/dL (75-99)
[2016-03-17] MEDS: CARVEDILOL 3.125 MG TAB PO SCH (06:19)
[2016-03-17] MEDS: PANTOPRAZOLE 40 MG TABLET PO SCH (06:19)
[2016-03-17] MEDS: INSULIN LISPRO (humaLOG) 300 UNIT/3 ML VIAL SQ SCH ×2 (06:20→12:30)
[2016-03-17 06:23] LABS: Glucose,Whole Blood 146 mg/dL (75-99)
[2016-03-17 06:52] LABS: Basophils # (A) 0.1 k/uL (0-0.2); Basophils % (A) 1 %; CH 28.5; CHCM 32.4; Eosinophils # (A) 0.2 k/uL (0-0.7); Eosinophils % (A) 4 %; HCT 30.5 % (39.0-53.0); HDW 2.91; HGB 9.8 gm/dL (13.0-17.5); Luc # (Auto) 0.06; Luc % (Auto) 1; Lymphocytes # (A) 1.1 k/uL (1.0-4.8); Lymphocytes % (A) 20 %; MCH 28.3 pg (25.0-35.0); MCV 88.5 fL (80.0-100.0); Mean Platelet Volume 7.7; Monocytes # (A) 0.4 k/uL (0-1.0); Monocytes % (A) 8 %; Neutrophils # (A) 3.7 k/uL (1.3-7.7); Neutrophils % (A) 67 %; RBC 3.45 m/uL (4.30-5.90); RDW 14.8 % (11.5-15.5); WBC 5.6 k/uL (3.8-10.6)
[2016-03-17 07:11] LABS: Calcium 8.6 mg/dL (8.4-10.2); Potassium 3.8 mmol/L (3.5-5.1)
[2016-03-17] MEDS: ASPIRIN 81 MG CHEW PO SCH (08:40)
[2016-03-17] MEDS: HEPARIN SODIUM,PORCINE 5,000 UNIT/ML 1 ML VIAL SQ SCH (08:40)
[2016-03-17] MEDS: CLOPIDOGREL 75 MG TAB PO SCH (08:41)
[2016-03-17] MEDS: FUROSEMIDE 40 MG TAB PO SCH (08:41)
[2016-03-17] MEDS ORDERED: INSULIN GLARGINE 100 UNIT/ML 10 ML VIAL SQ SCH (09:00)
[2016-03-17] MEDS ORDERED: SPIRONOLACTONE 25 MG TAB PO SCH (09:00)
[2016-03-17] MEDS: MAGNESIUM SULFATE-D5W PMX 1 GM in DEXTROSE/WATER 1 100ML.BAG IVPB SCH ×2 (10:19→12:06)
[2016-03-17 11:47] LABS: Glucose,Whole Blood 192 mg/dL (75-99)
[2016-03-17 12:24] VITALS: BP 120/74; PULSE 79; RESP 20; TEMP 97
[2016-03-17] MEDS: LISINOPRIL 20 MG TAB PO SCH (12:29)
--- NOTE | 2016-03-17 13:23 | P.PN ---
Subjective Principal diagnosis: CHF This is a pleasant 75-year-old gentleman with a history of prior TIA, diabetes, hypertension, ischemic cardiomyopathy, prior anterior wall [place], hyperlipidemia and GERD. Presented to the hospital with symptoms of progressively worsening shortness of breath. He was started on IV Lasix. Echocardiogram with Doppler performed in 2013 showed an ejection fraction around 35%. Echo performed here revealed an ejection fraction of less than 20% . His weight today is down almost another kilogram. The patient was started on by mouth Lasix upon examination today, the patient is feeling well. He denies any complaints of shortness of breath or edema. He's had no dizziness or lightheadedness. He is awaiting the arrival of a LifeVest prior to discharge. Objective - Vital Signs Vital signs: Vital Signs Temp 97 F L 03/17/16 12:00 Pulse 79 03/17/16 12:00 Resp 20 03/17/16 12:00 BP 120/74 03/17/16 12:00 Pulse Ox 92 L 03/17/16 12:00 Intake & Output 03/16/16 03/17/16 03/17/16 18:59 06:59 18:59 Intake Total 180 Output Total 1900 150 300 Balance -1900 -150 -120 Weight 87.3 kg Intake: Oral 180 Output: Urine 1900 150 300 Other: Voiding Method Urinal Urinal Urinal # Voids 1 - Exam PHYSICAL EXAMINATION: HEENT: Head is atraumatic, normocephalic. Pupils equal, round. Neck is supple. There is no elevated jugular venous pressure. HEART EXAMINATION: Heart sounds regular, S1 and S2 normal. No murmur or gallop heard. CHEST EXAMINATION: Lungs are clear with diminished air entry to posterior bases. No chest wall tenderness is noted on palpation or with deep breathing. ABDOMEN: Soft, nontender. Bowel sounds are heard. No organomegaly noted. EXTREMITIES: 2+ peripheral pulses with no evidence of peripheral edema and no calf tenderness noted. NEUROLOGIC patient is awake, alert and oriented x3. . - Labs CBC & Chem 7: 03/17/16 06:15 03/17/16 06:15 Labs: Abnormal Lab Results - Last 24 Hours (Table) 03/16/16 03/16/16 03/16/16 Range/Units 16:41 20:53 21:13 RBC (4.30-5.90) m/uL Hgb (13.0-17.5) gm/dL Hct (39.0-53.0) % BUN (9-20) mg/dL Creatinine (0.66-1.25) mg/dL Glucose (74-99) mg/dL POC Glucose (mg/dL) 162 H 58 L 63 L (75-99) mg/dL 03/17/16 03/17/16 03/17/16 Range/Units 02:02 06:12 06:15 RBC 3.45 L (4.30-5.90) m/uL Hgb 9.8 L (13.0-17.5) gm/dL Hct 30.5 L (39.0-53.0) % BUN (9-20) mg/dL Creatinine (0.66-1.25) mg/dL Glucose (74-99) mg/dL POC Glucose (mg/dL) 128 H 146 H (75-99) mg/dL 03/17/16 03/17/16 Range/Units 06:15 11:46 RBC (4.30-5.90) m/uL Hgb (13.0-17.5) gm/dL Hct (39.0-53.0) % BUN 28 H (9-20) mg/dL Creatinine 1.66 H (0.66-1.25) mg/dL Glucose 130 H (74-99) mg/dL POC Glucose (mg/dL) 192 H (75-99) mg/dL Assessment and Plan Plan: Assessment and plan #1 acute on chronic systolic congestive heart failure #2 ischemic cardiomyopathy #3 prior anterior wall [place] with LAD stenting #4 hypertension #5 hyperlipidemia #6 prior TIA From cardiology's perspective, dictations were reviewed we will continue the same. Upon arrival of [facility] patient may be discharged home. He will have a follow-up appointment with Dr. Barlow in the office in 2 weeks. Patient will be scheduled for an AICD as an outpatient. [employer] ANALYSIS LABORATORY ASSISTANT note has been reviewed, I agree with a documented findings and plan of care. Patient was seen and examined.
--- NOTE | 2016-03-17 14:56 | DS ---
DATE OF ADMISSION: 03/13/2016 DATE OF DISCHARGE: Patient is a 75-year-old admitted ( ) ejection fraction of 10%. Patient came in with exacerbation and patient is euvolemic at this point of time. Patient has mildly worsening kidney function, which is expected to improve since we switched his Lasix to oral and patient is being discharged on 40 b.i.d. of Lasix and patient will need an AICD. Patient has episodes of ventricular tachycardia because of which patient is receiving a life vest before his discharge. Patient will come back down the line for AICD placement. Patient was seen and examined on the day of discharge. Vitals are stable. PHYSICAL EXAMINATION: GENERAL: The patient is alert and oriented x3, not in any acute distress. Well developed, well nourished. HEENT: Pupils are round and equally reacting to light. EOMI. No scleral icterus. No conjunctival pallor. Normocephalic, atraumatic. No pharyngeal erythema. No thyromegaly. CARDIOVASCULAR: S1 and S2 present. No murmurs, rubs, or gallops. PULMONARY: Chest is clear to auscultation, no wheezing or crackles. ABDOMEN: Soft, nontender, nondistended, normoactive bowel sounds. No palpable organomegaly. MUSCULOSKELETAL: No joint swelling or deformity. EXTREMITIES: No cyanosis, clubbing, or pedal edema. NEUROLOGICAL: Gross neurological examination did not reveal any focal deficits. SKIN: No rashes. FINAL DIAGNOSIS(ES): 1. Congestive heart failure, chronic systolic dysfunction, ejection fraction of 10% with acute exacerbation. Patient is euvolemic at this point of time. 2. Episodes of ventricular tachycardia with acute renal failure secondary to cardiorenal syndrome along with component of excessive diuresis. 3. Minimal troponin elevation secondary to congestive heart failure. 4. Type 2 diabetes mellitus. 5. Cerebrovascular accident. 6. Hypertension. Patient will be discharged today. CHF discharge instructions will be provided. Patient will follow with Dr. Beulah Reyes on Mar 20 at 9:[address] Levon Barlow March 23 at 1:30 p.m. Activity as tolerated. Cardiac diet. Spent greater than 35 minutes in total discharge process. Please refer to my depart summary for further details of discharge medications.
== END 2016-03-17 17:31 | disposition home health service (06) | DRG 291 ==
LOC: EC 21:26 → 6SEL 03-13 00:12 → 2CATHESU 03-13 10:42 → 6SEL 03-13 17:13
PROVIDERS: ADMIT Hospitalist; ATTEND Hospitalist
DX: I13.0 Hypertensive heart and chronic kidney disease with heart failure and stage 1 through stage 4 chronic kidney disease, or unspecified chronic kidney disease (principal); I50.23 Acute on chronic systolic (congestive) heart failure; I47.2 Ventricular tachycardia; N17.9 Acute kidney failure, unspecified; I25.10 Atherosclerotic heart disease of native coronary artery without angina pectoris; E78.5 Hyperlipidemia, unspecified; I34.0 Nonrheumatic mitral (valve) insufficiency; I25.2 Old myocardial infarction; N18.9 Chronic kidney disease, unspecified; I25.5 Ischemic cardiomyopathy; K21.9 Gastro-esophageal reflux disease without esophagitis; D63.8 Anemia in other chronic diseases classified elsewhere; R74.8 Abnormal levels of other serum enzymes; R94.6 Abnormal results of thyroid function studies; E11.65 Type 2 diabetes mellitus with hyperglycemia; E11.22 Type 2 diabetes mellitus with diabetic chronic kidney disease; F41.9 Anxiety disorder, unspecified; N42.9 Disorder of prostate, unspecified; M19.90 Unspecified osteoarthritis, unspecified site; Z83.3 Family history of diabetes mellitus; Z80.1 Family history of malignant neoplasm of trachea, bronchus and lung; Z95.5 Presence of coronary angioplasty implant and graft; Z82.49 Family history of ischemic heart disease and other diseases of the circulatory system; Z79.02 Long term (current) use of antithrombotics/antiplatelets; Z86.73 Personal history of transient ischemic attack (TIA), and cerebral infarction without residual deficits; Z85.46 Personal history of malignant neoplasm of prostate; Z79.4 Long term (current) use of insulin; Z79.899 Other long term (current) drug therapy
CPT/HCPCS: 36415; 71010; 78582; 80048; 80053; 81001; 83036; 83735; 83880; 84439; 84443; 84484; 85025; 85379; 85610; 85730; 93005; 93306; 93970; 94660; 99291

== ENCOUNTER 2018-11-11 13:45 | Observation (INO) | payer MEDICARE ==
--- NOTE | 2018-11-11 14:09 | ED ---
General Adult HPI - General Chief complaint: Shortness of Breath Stated complaint: SOB, Abnormal EKG Time Seen by Provider: 11/11/18 14:00 Source: patient, RN notes reviewed Mode of arrival: wheelchair Limitations: no limitations - History of Present Illness Initial comments: This is a 78-year-old male who presents emergency Department complaining short ness of breath over the last few days per patient states he notices it most with exertion. Patient states he went to his primary medical care doctor today and they told him he was in atrial fibrillation and gave him a Xarelto in the office. Patient denies any chest pain. Patient denies feeling any palpitations. Patient denies any increased swelling to his legs or calf tenderness. Patient denies any abdominal pain patient denies nausea or vomiting. Patient denies any dizziness lightheadedness or any near syncopal episodes. Patient denies headache patient denies any numbness or weakness. - Related Data Home Medications Medication Instructions Recorded Confirmed INSULIN ASPART (NovoLOG) [NovoLOG See Protocol SQ DAILY 03/12/16 11/11/18 (formulary)] Insulin Glargine,Hum.rec.anlog 14 unit SQ BID 03/12/16 11/11/18 [Lantus Solostar] Lisinopril [Zestril] 20 mg PO DAILY 03/13/16 11/11/18 Atorvastatin [Lipitor] 40 mg PO HS 11/11/18 11/11/18 amLODIPine [Norvasc] 10 mg PO DAILY 11/11/18 11/11/18 Previous Rx's Medication Instructions Recorded Clopidogrel [Plavix] 75 mg PO DAILY #30 tab 01/21/14 Spironolactone [Aldactone] 50 mg PO DAILY #30 tab 03/16/16 Allergies Allergy/AdvReac Type Severity Reaction Status Date / Time metformin Allergy Unknown Verified 11/11/18 14:15 Review of Systems ROS Statement: Those systems with pertinent positive or pertinent negative responses have been documented in the HPI. ROS Other: All systems not noted in ROS Statement are negative. Past Medical History Past Medical History: Coronary Artery Disease (CAD), Chest Pain / Angina, Heart Failure, CVA/TIA, Diabetes Mellitus, GERD/Reflux, Hyperlipidemia, Hypertension, Myocardial Infarction ([place]), Musculoskeletal Disorder, Osteoarthritis (OA), Prostate Disorder Additional Past Medical History / Comment(s): IDDM type II, increased weakness over past year, problems with gas build up and abdominal distention when this occurs-last BM 03/13/16-normal, BPH, low back pain, L eye with blurry vision-saw eye doctor and are watching this. Last Myocardial Infarction Date:: 01/17/14 History of Any Multi-Drug Resistant Organisms: None Reported Past Surgical History: Heart Catheterization With Stent Past Anesthesia/Blood Transfusion Reactions: No Reported Reaction Date of Last Stent Placement:: 2013 Past Psychological History: No Psychological Hx Reported Smoking Status: Never smoker Past Alcohol Use History: None Reported Past Drug Use History: None Reported - Past Family History Mother Family Medical History: Coronary Artery Disease (CAD), Diabetes Mellitus Additional Family Medical History / Comment(s): Mother at the age of 72 yrs and pt thinks possible due to [place] Father Family Medical History: Cancer Additional Family Medical History / Comment(s): Father of lung cancer at the age of 66yrs. Sister(s) Family Medical History: Congestive Heart Failure (CHF), Diabetes Mellitus Brother(s) Family Medical History: Myocardial Infarction ([place]) Daughter(s) Family Medical History: No Reported History General Exam - General Exam Comments Initial Comments: GENERAL: Patient is well-developed and well-nourished. Patient is nontoxic and well- hydrated and is in mild distress. ENT: Neck is soft and supple. No significant lymphadenopathy is noted. Oropharynx is clear. Moist mucous membranes. Neck has full range of motion without eliciting any pain. EYES: The sclera were anicteric and conjunctiva were pink and moist. Extraocular movements were intact and pupils were equal round and reactive to light. E yelids were unremarkable. PULMONARY: Unlabored respirations. Good breath sounds bilaterally. No audible rales rhonchi or wheezing was noted. CARDIOVASCULAR: Patient is a regular rate and rhythm. Patient's tachycardic at about 120 beats a minute ABDOMEN: Soft and nontender with normal bowel sounds. No palpable organomegaly was noted. There is no palpable pulsatile mass. SKIN: Skin is clear with no lesions or rashes and otherwise unremarkable. NEUROLOGIC: Patient is alert and oriented x3. Cranial nerves II through XII are grossly intact. Motor and sensory are also intact. Normal speech, volume and content. Symmetrical smile. MUSCULOSKELETAL: Normal extremities with adequate strength and full range of motion. No lower extremity swelling or edema. No calf tenderness. LYMPHATICS: No significant lymphadenopathy is noted PSYCHIATRIC: Normal psychiatric evaluation. Limitations: no limitations Course Vital Signs 11/11/18 13:49 Temperature 97.6 F Pulse Rate 111 H Respiratory 18 Rate Blood Pressure 108/68 O2 Sat by Pulse 99 Oximetry Medical Decision Making - Medical Decision Making EKG shows atrial fibrillation with rapid ventricular response at 111 bpm QRS is 122 QT interval 322 QTC is 437. Patient's EKG shows no ST segment elevation or depression. Chest x-ray shows no acute abnormality. Patient's d-dimer was mildly elevated but since his creatinine is elevated CT of the chest could not be done. Patient was already on Xarelto so I will admit the patient and they can do a VQ scan in the morning. I spoke with Dr. Cotter and she agreed to admit the patient and the patient wrote admitting orders. I consult to cardiology. - Lab Data Result diagrams: 11/11/18 14:00 11/11/18 14:00 Lab Results 11/11/18 11/11/18 11/11/18 Range/Units 14:00 14:00 14:00 WBC 6.8 (3.8-10.6) k/uL RBC 4.04 L (4.30-5.90) m/uL Hgb 11.9 L (13.0-17.5) gm/dL Hct 37.8 L (39.0-53.0) % MCV 93.5 (80.0-100.0) fL MCH 29.5 (25.0-35.0) pg MCHC 31.6 (31.0-37.0) g/dL RDW 13.9 (11.5-15.5) % Plt Count 198 (150-450) k/uL Neutrophils % 72 % Lymphocytes % 18 % Monocytes % 6 % Eosinophils % 2 % Basophils % 1 % Neutrophils # 4.9 (1.3-7.7) k/uL Lymphocytes # 1.2 (1.0-4.8) k/uL Monocytes # 0.4 (0-1.0) k/uL Eosinophils # 0.2 (0-0.7) k/uL Basophils # 0.1 (0-0.2) k/uL PT 13.2 H (9.0-12.0) sec INR 1.3 H (<1.2) APTT 30.4 H (22.0-30.0) sec D-Dimer 1.15 H (<0.60) mg/L FEU Sodium 137 (137-145) mmol/L Potassium 4.6 (3.5-5.1) mmol/L Chloride 105 (98-107) mmol/L Carbon Dioxide 22 (22-30) mmol/L Anion Gap 10 mmol/L BUN 27 H (9-20) mg/dL Creatinine 1.74 H (0.66-1.25) mg/dL Est GFR (CKD-EPI)AfAm 43 (>60 ml/min/1.73 sqM) Est GFR (CKD-EPI)NonAf 37 (>60 ml/min/1.73 sqM) Glucose 235 H (74-99) mg/dL Calcium 8.7 (8.4-10.2) mg/dL Magnesium 1.7 (1.6-2.3) mg/dL Total Bilirubin 0.8 (0.2-1.3) mg/dL AST 25 (17-59) U/L ALT 34 (21-72) U/L Alkaline Phosphatase 72 (38-126) U/L Troponin I (0.000-0.034) ng/mL NT-Pro-B Natriuret Pep pg/mL Total Protein 6.7 (6.3-8.2) g/dL Albumin 3.8 (3.5-5.0) g/dL 11/11/18 11/11/18 Range/Units 14:00 14:00 WBC (3.8-10.6) k/uL RBC (4.30-5.90) m/uL Hgb (13.0-17.5) gm/dL Hct (39.0-53.0) % MCV (80.0-100.0) fL MCH (25.0-35.0) pg MCHC (31.0-37.0) g/dL RDW (11.5-15.5) % Plt Count (150-450) k/uL Neutrophils % % Lymphocytes % % Monocytes % % Eosinophils % % Basophils % % Neutrophils # (1.3-7.7) k/uL Lymphocytes # (1.0-4.8) k/uL Monocytes # (0-1.0) k/uL Eosinophils # (0-0.7) k/uL Basophils # (0-0.2) k/uL PT (9.0-12.0) sec INR (<1.2) APTT (22.0-30.0) sec D-Dimer (<0.60) mg/L FEU Sodium (137-145) mmol/L Potassium (3.5-5.1) mmol/L Chloride (98-107) mmol/L Carbon Dioxide (22-30) mmol/L Anion Gap mmol/L BUN (9-20) mg/dL Creatinine (0.66-1.25) mg/dL Est GFR (CKD-EPI)AfAm (>60 ml/min/1.73 sqM) Est GFR (CKD-EPI)NonAf (>60 ml/min/1.73 sqM) Glucose (74-99) mg/dL Calcium (8.4-10.2) mg/dL Magnesium (1.6-2.3) mg/dL Total Bilirubin (0.2-1.3) mg/dL AST (17-59) U/L ALT (21-72) U/L Alkaline Phosphatase (38-126) U/L Troponin I 0.016 (0.000-0.034) ng/mL NT-Pro-B Natriuret Pep 06722 pg/mL Total Protein (6.3-8.2) g/dL Albumin (3.5-5.0) g/dL Critical Care Time Critical Care Time: Yes Total Critical Care Time: 35 Disposition Clinical Impression: New onset a-fib Disposition: ADMITTED IP TO THIS [facility] Referrals: Beulah Reyes MD [Primary Care Provider] - 1-2 days Time of Disposition: 15:51
[2018-11-11 14:22] LABS: Basophils # (A) 0.1 k/uL (0-0.2); Basophils % (A) 1 %; Eosinophils # (A) 0.2 k/uL (0-0.7); Eosinophils % (A) 2 %; HCT 37.8 % (39.0-53.0); HGB 11.9 gm/dL (13.0-17.5); Lymphocytes # (A) 1.2 k/uL (1.0-4.8); Lymphocytes % (A) 18 %; MCH 29.5 pg (25.0-35.0); MCHC 31.6 g/dL (31.0-37.0); MCV 93.5 fL (80.0-100.0); Mean Platelet Volume 8.5; Monocytes # (A) 0.4 k/uL (0-1.0); Monocytes % (A) 6 %; Neutrophils # (A) 4.9 k/uL (1.3-7.7); Neutrophils % (A) 72 %; Platelet Count 198 k/uL (150-450); RBC 4.04 m/uL (4.30-5.90); RDW 13.9 % (11.5-15.5); WBC 6.8 k/uL (3.8-10.6)
--- NOTE | 2018-11-11 14:34 | XR ---
EXAMINATION TYPE: XR chest 2V DATE OF EXAM: 11/11/2018 COMPARISON: 03/12/2016 INDICATION: Difficulty in breathing, abnormal EKG TECHNIQUE: Frontal and lateral views of the chest are obtained. FINDINGS: The heart size is normal. The pulmonary vasculature is normal. Small infiltrates at the bilateral costophrenic angles. Small pleural effusions may be present.. IMPRESSION: 1. Small bilateral pleural effusions and/or atelectasis at the costophrenic angles.
[2018-11-11 14:36] LABS: INR 1.3 (<1.2); Partial Thromboplastin Time 30.4 sec (22.0-30.0); Prothrombin Time 13.2 sec (9.0-12.0)
[2018-11-11 14:39] LABS: Albumin 3.8 g/dL (3.5-5.0); Calcium 8.7 mg/dL (8.4-10.2); Magnesium 1.7 mg/dL (1.6-2.3); Potassium 4.6 mmol/L (3.5-5.1); Total Bilirubin 0.8 mg/dL (0.2-1.3); Total Protein 6.7 g/dL (6.3-8.2)
[2018-11-11 15:11] LABS: D-Dimer 1.15 mg/L FEU (<0.60)
[2018-11-11] MEDS ORDERED: NITROGLYCERIN SL TABS 0.4 MG TAB SUBLINGUAL PRN (15:51)
[2018-11-11 18:26] LABS: Glucose,Whole Blood 149 mg/dL (75-99)
[2018-11-11] MEDS ORDERED: METOPROLOL TARTRATE 25 MG TAB PO SCH (19:15)
[2018-11-11] MEDS: RIVAROXABAN 15 MG TAB PO SCH (19:58)
[2018-11-11 20:45] LABS: Glucose,Whole Blood 208 mg/dL (75-99)
[2018-11-11] MEDS ORDERED: ATORVASTATIN 40 MG TAB PO SCH (21:00)
[2018-11-11] MEDS ORDERED: INSULIN DETEMIR (LEVEMIR) 100 UNIT/ML SYR SQ SCH (21:00)
[2018-11-11] MEDS: INSULIN ASPART (NovoLOG) 100 UNIT/ML VIAL SQ SCH (21:27)
[2018-11-12] MEDS ORDERED: SODIUM CHLORIDE 0.9% 1,000 ML IV SCH (00:45)
--- NOTE | 2018-11-12 01:05 | P.HPIM ---
History of Present Illness H&P Date: 11/11/18 Chief Complaint: Atrial fibrillation Patient is a 78-year-old male with a known history of hypertension, diabetes type 2, GERD, hyperlipidemia and history of HI, coronary artery disease and stent placement 4 who is on regular follow-up with his supervising nurse, Dr. Romo initially presented to PCPs office due to shortness of breath and exhaustion and tiredness which has been gradually worsening for the past 2 months. Patient says that his previous echocardiogram showed normal ejection fraction. And heart rate was in 60s at the time. Patient had an EKG at PCPs office which showed atrial fibrillation with rapid ventricular rate. Patient was given a dose of xarelto in the office and sent to ER for further management. Patient denied any palpitations. No chest pain. No shortness of breath. No leg swelling or Tenderness. No dizziness or lightheadedness. Patient has been feeling tired and exhausted even with small activity recently. EKG showed atrial fibrillation with rapid ventricular rate, 111 D-dimer 1.15 BUN 25 and creatinine 1.71 BNP 25962 Troponin 0.016 and 0.019 Chest x-ray showed small bilateral pleural effusions and/or atelectasis. Review of Systems Constitutional: Patient denies any fever or chills . His weakness and tiredness and exhaustion. Abdomen: Patient denied nausea vomiting and diarrhea and abdominal pain. Cardiovascular: Patient denies any chest pain or short of breath no palpitations . Respiratory: patient denied any cough is from production. No shortness of breath Neurologic: Patient denied any numbness or tingling headache. Musculoskeletal: Patient denies any complaints of joint swelling or deformity. Skin: Negative Psychiatric: Negative Endocrine: No heat or cold intolerance. No recent weight gain. Genitourinary: No dysuria or hematuria. All other 14 point ROS negative except the above Past Medical History Past Medical History: Coronary Artery Disease (CAD), Chest Pain / Angina, Heart Failure, CVA/TIA, Diabetes Mellitus, GERD/Reflux, Hyperlipidemia, Hypertension, Myocardial Infarction ([place]), Musculoskeletal Disorder, Osteoarthritis (OA), Prostate Disorder Additional Past Medical History / Comment(s): IDDM type II, increased weakness over past year, problems with gas build up and abdominal distention when this occurs-last BM 03/13/16-normal, BPH, low back pain, L eye with blurry vision-r esolved-saw eye doctor and are watching this. Last Myocardial Infarction Date:: 01/17/14 History of Any Multi-Drug Resistant Organisms: None Reported Past Surgical History: Heart Catheterization With Stent Additional Past Surgical History / Comment(s): Hx 4 stents Past Anesthesia/Blood Transfusion Reactions: No Reported Reaction Date of Last Stent Placement:: 2013 Past Psychological History: No Psychological Hx Reported Additional Psychological History / Comment(s): Pt resides with his spouse. He is independent. Smoking Status: Never smoker Past Alcohol Use History: None Reported Past Drug Use History: None Reported - Past Family History Mother Family Medical History: Coronary Artery Disease (CAD), Diabetes Mellitus Additional Family Medical History / Comment(s): Mother at the age of 72 yrs and pt thinks possible due to [place] Father Family Medical History: Cancer Additional Family Medical History / Comment(s): Father of lung cancer at the age of 66yrs. Sister(s) Family Medical History: Congestive Heart Failure (CHF), Diabetes Mellitus Brother(s) Family Medical History: Myocardial Infarction ([place]) Daughter(s) Family Medical History: No Reported History Medications and Allergies Home Medications Medication Instructions Recorded Confirmed Type Clopidogrel [Plavix] 75 mg PO DAILY #30 tab 01/21/14 11/11/18 Rx INSULIN ASPART (NovoLOG) [NovoLOG See Protocol SQ DAILY 03/12/16 11/11/18 History (formulary)] Insulin Glargine,Hum.rec.anlog 14 unit SQ QAM 03/12/16 11/11/18 History [Lantus Solostar] Lisinopril [Zestril] 20 mg PO DAILY 03/13/16 11/11/18 History Spironolactone [Aldactone] 50 mg PO DAILY #30 tab 03/16/16 11/11/18 Rx Atorvastatin [Lipitor] 40 mg PO HS 11/11/18 11/11/18 History Insulin Glargine,Hum.rec.anlog 12 units SQ HS 11/11/18 11/11/18 History [Lantus Solostar] amLODIPine [Norvasc] 10 mg PO DAILY 11/11/18 11/11/18 History Allergies Allergy/AdvReac Type Severity Reaction Status Date / Time metformin Allergy Unknown Verified 11/11/18 14:15 Physical Exam Vitals: Vital Signs Temp Pulse Pulse Resp BP BP BP 11/11/18 19:59 98.1 F 123 H 17 107/71 11/11/18 18:15 97.6 F 120 H 16 112/66 11/11/18 17:30 89 16 113/79 11/11/18 17:00 114/100 11/11/18 16:30 102 H 16 110/82 11/11/18 16:00 101 H 15 113/77 11/11/18 15:30 120 H 21 117/91 11/11/18 15:00 103 H 14 127/80 11/11/18 14:30 105 H 12 127/80 11/11/18 13:49 97.6 F 111 H 18 108/68 Pulse Ox 11/11/18 19:59 96 11/11/18 18:15 97 11/11/18 17:30 98 11/11/18 17:00 11/11/18 16:30 97 11/11/18 16:00 96 11/11/18 15:30 98 11/11/18 15:00 98 11/11/18 14:30 96 11/11/18 13:49 99 Intake and Output 11/11/18 11/11/18 11/12/18 14:59 22:59 06:59 Other: Weight 91.626 kg PHYSICAL EXAMINATION: Patient is lying in the bed comfortably, no acute distress, awake alert and oriented.. HEENT: Normocephalic. Neck is supple. Pupils reactive. Nostrils clear. Oral cavity is moist. Ears reveal no drainage. Neck reveals no JVD, carotid bruits, or thyromegaly. CHEST EXAMINATION: Trachea is central. Symmetrical expansion. Lung armstrong clear to auscultation and percussion. CARDIAC: Normal S1, S2 with no gallops. No murmurs . Irregularly irregular rhythm. ABDOMEN: Soft. Bowel sounds normal. No organomegaly. No abdominal bruits. Extremities: trace edema. No clubbing or cyanosis Neurologically awake, alert, oriented x3 with well-coordinated movements. No focal deficits noted Skin: No rash or skin lesions. Psychiatric: Coperative. Nonsuicidal Musculoskeletal: No joint swelling or deformity. Normal range of motion. Results CBC & Chem 7: 11/11/18 14:00 11/11/18 14:00 Labs: Abnormal Lab Results - Last 24 Hours (Table) 11/11/18 11/11/18 11/11/18 Range/Units 14:00 14:00 14:00 RBC 4.04 L (4.30-5.90) m/uL Hgb 11.9 L (13.0-17.5) gm/dL Hct 37.8 L (39.0-53.0) % PT 13.2 H (9.0-12.0) sec INR 1.3 H (<1.2) APTT 30.4 H (22.0-30.0) sec D-Dimer 1.15 H (<0.60) mg/L FEU BUN 27 H (9-20) mg/dL Creatinine 1.74 H (0.66-1.25) mg/dL Glucose 235 H (74-99) mg/dL POC Glucose (mg/dL) (75-99) mg/dL 11/11/18 11/11/18 Range/Units 18:18 20:43 RBC (4.30-5.90) m/uL Hgb (13.0-17.5) gm/dL Hct (39.0-53.0) % PT (9.0-12.0) sec INR (<1.2) APTT (22.0-30.0) sec D-Dimer (<0.60) mg/L FEU BUN (9-20) mg/dL Creatinine (0.66-1.25) mg/dL Glucose (74-99) mg/dL POC Glucose (mg/dL) 149 H 208 H (75-99) mg/dL Thrombosis Risk Factor Assmnt - DVT/VTE Prophylaxis DVT/VTE Prophylaxis: Pharmacologic Prophylaxis ordered - Choose All That Apply Any of the Below Risk Factors Present?: No Other Risk Factors: No Each Risk Factor Represents 3 Points: Age 75 years or older Other congenital or acquired thrombophilia - If yes, enter type in comment: No Thrombosis Risk Factor Assessment Total Risk Factor Score: 3 Thrombosis Risk Factor Assessment Level: Very Low Risk Assessment and Plan Assessment: New onset atrial fibrillation with rapid regular rate. Acute CHF with ejection fraction unknown at this time. Precipitated by RVR. Acute kidney injury. With possible underlying chronic kidney disease stage III. Elevated d-dimer. Likely due to acute kidney injury and CHF. will rule out PE. VQ scan was ordered due to acute kidney injury. Weakness and fatigue Coronary artery disease and history of stent placement 4 History of CVA/TIA Diabetes type 2 GERD Hyperlipidemia Hypertension History of HI She arthritis BPH DVT prophylaxis Plan: Patient be continued on telemetry monitoring. Started on metoprolol 20 mg twice a day and continue with anticoagulation with xarelto. Patient was given 1 dose of xarelto in doctor's office. Currently with Xarelto 15 mg twice a day for 21 days followed by 20 mg daily. Cardiology was consulted. 2-D echocardiogram was ordered. Follow-up VQ scan. Continue the home medications and follow up renal function. Hold Aldactone and lisinopril due to acute kidney injury.. Further recommendations based on clinical course. Time with Patient: Greater than 30
[2018-11-12 02:49] LABS: Basophils # (A) 0.1 k/uL (0-0.2); Basophils % (A) 1 %; Eosinophils # (A) 0.2 k/uL (0-0.7); Eosinophils % (A) 3 %; HGB 10.7 gm/dL (13.0-17.5); Lymphocytes # (A) 1.1 k/uL (1.0-4.8); Lymphocytes % (A) 18 %; MCH 28.9 pg (25.0-35.0); MCHC 30.7 g/dL (31.0-37.0); MCV 94.3 fL (80.0-100.0); Mean Platelet Volume 8.2; Monocytes # (A) 0.4 k/uL (0-1.0); Monocytes % (A) 6 %; Neutrophils # (A) 4.5 k/uL (1.3-7.7); Neutrophils % (A) 70 %; Platelet Count 186 k/uL (150-450); RBC 3.72 m/uL (4.30-5.90); WBC 6.4 k/uL (3.8-10.6)
[2018-11-12 03:23] LABS: Cholesterol 53 mg/dL (<200); HDL Cholesterol 27 mg/dL (40-60); LDL Cholesterol,Calculated 15 mg/dL (0-99); Triglycerides 55 mg/dL (<150)
[2018-11-12 04:05] LABS: Calcium 8.6 mg/dL (8.4-10.2); Potassium 4.5 mmol/L (3.5-5.1)
[2018-11-12 06:47] LABS: Glucose,Whole Blood 77 mg/dL (75-99)
[2018-11-12] MEDS: RIVAROXABAN 15 MG TAB PO SCH (06:49)
[2018-11-12] MEDS: INSULIN ASPART (NovoLOG) 100 UNIT/ML VIAL SQ SCH ×2 (06:49→12:05)
[2018-11-12] MEDS ORDERED: INSULIN DETEMIR (LEVEMIR) 100 UNIT/ML SYR SQ SCH (07:00)
[2018-11-12] MEDS: CLOPIDOGREL 75 MG TAB PO SCH ×2 (08:28→08:31)
[2018-11-12] MEDS: amLODIPine 10 MG TAB PO SCH ×2 (08:28→08:31)
[2018-11-12] MEDS: METOPROLOL TARTRATE 25 MG TAB PO SCH ×2 (08:28→08:32)
[2018-11-12] MEDS: ASPIRIN 325 MG TAB PO SCH ×2 (08:28→08:31)
--- NOTE | 2018-11-12 10:03 | ECHOF ---
Referral Reason:new afib MEASUREMENTS -------- HEIGHT: 182.9 cm WEIGHT: 89.4 kg BP: 115/65 RVIDd: 3.3 cm (< 3.3) IVSd: 1.2 cm (0.6 - 1.1) LVIDd: 5.4 cm (3.9 - 5.3) LVPWd: 1.0 cm (0.6 - 1.1) IVSs: 1.5 cm LVIDs: 5.3 cm LVPWs: 1.3 cm LA Diam: 5.1 cm (2.7 - 3.8) LAESV Index (A-L): 54.05 ml/m Ao Diam: 3.6 cm (2.0 - 3.7) AV Cusp: 1.9 cm (1.5 - 2.6) MV EXCURSION: 10.412 mm (> 18.000) MV EF SLOPE: 107 mm/s (70 - 150) EPSS: 2.4 cm RAP: 5.00 mmHg RVSP: 45.83 mmHg TAPSE: 16.49 mm FINDINGS -------- Atrial fibrillation. This was a technically good study. The left ventricular size is normal. There is borderline concentric left ventricular hypertrophy. There is severe global hypokinesis of LV . Overall left ventricular systolic function is severely impaired with, an EF < 20%. The right ventricle is mildly enlarged. LA is severely dilated >40 ml/m2 The right atrial size is normal. Interatrial and interventricular septum intact. The aortic valve is trileaflet, and appears structurally normal. No aortic stenosis or regurgitation. Mild mitral annular calcification present. Severe mitral regurgitation is present. Mild tricuspid regurgitation present. There is mild to moderate pulmonary hypertension. The right ventricular systolic pressure, as measured by Doppler, is 45.83mmHg. Trace/mild (physiologic) pulmonic regurgitation. The aortic root size is normal. Normal inferior vena cava with normal inspiratory collapse consistent with estimated right atrial pre ssure of 5 mmHg. There is no pericardial effusion. CONCLUSIONS -------- 1. Atrial fibrillation. 2. This was a technically good study. 3. The left ventricular size is normal. 4. There is borderline concentric left ventricular hypertrophy. 5. There is severe global hypokinesis of LV . 6. Overall left ventricular systolic function is severely impaired with, an EF < 20%. 7. The right ventricle is mildly enlarged. 8. LA is severely dilated >40 ml/m2 9. The aortic valve is trileaflet, and appears structurally normal. No aortic stenosis or regurgitati on. 10. Mild mitral annular calcification present. 11. Severe mitral regurgitation is present. 12. Mild tricuspid regurgitation present. 13. There is mild to moderate pulmonary hypertension. 14. Trace/mild (physiologic) pulmonic regurgitation. 15. The aortic root size is normal. 16. Normal inferior vena cava with normal inspiratory collapse consistent with estimated right atrial pressure of 5 mmHg. 17. There is no pericardial effusion. [employer] FORMER SUPERVISOR: Guadalupe Weeks RDCS
--- NOTE | 2018-11-12 11:15 | NM ---
EXAMINATION TYPE: NM pul vent and perfuse DATE OF EXAM: 11/12/2018 COMPARISON: Radiograph 11/11/2018 HISTORY: 78 year-old male shortness of breath, rule out PE TECHNIQUE: Utilizing inhalation of 40 mCi Tc 99m DTPA aerosol and intravenous injection of 4.91 mCi of Tc 99m MAA, ventilation and perfusion images are acquired post injection in multiple projections. FINDINGS: No mismatched perfusion defects. On the ventilation images, there is some clumping of tracer within t he central airways. IMPRESSION: Very low probability for pulmonary embolus. Some central clumping of tracer in the airways can be see n with COPD.
[2018-11-12 11:48] LABS: Glucose,Whole Blood 74 mg/dL (75-99)
[2018-11-12 12:21] VITALS: BP 100/65; PULSE 102; RESP 16; TEMP 98
[2018-11-12] MEDS ORDERED: APIXABAN 5 MG TAB PO SCH (21:00)
--- NOTE | 2018-11-17 19:05 | P.DS ---
Providers Date of admission: 11/11/18 15:51 Expected date of discharge: 11/12/18 Attending physician: Padmaja Cotter Consults: 11/11/18 15:51 Consult Physician Urgent Consulting Provider: [facility] Consult Reason/Comments: New-onset A. fib Do you want consulting provider notified?: Yes Primary care physician: Beulah Reyes Hospital Course: Discharge diagnosis New onset atrial fibrillation with rapid regular rate. Rate controlled. Started on Eliquis for anticoagulation. Acute CHF with ejection fraction unknown at this time. Precipitated by RVR. Acute kidney injury. With possible underlying chronic kidney disease stage III. Elevated d-dimer. Likely due to acute kidney injury and CHF. Ruled out PE. VQ scan was ordered due to acute kidney injury. 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 Romo initially presented to PCPs office due to shortness of breath and exhaustion and tiredness which has been gradually worsening for the past 2 months. Patient says that his previous echocardiogram showed normal ejection fraction. And heart rate was in 60s at the time. Patient had an EKG at PCPs office which showed atrial fibrillation with rapid ventricular rate. Patient was given a dose of xarelto in the office and sent to ER for further management. Patient denied any palpitations. No chest pain. No shortness of breath. No leg swelling or Tenderness. No dizziness or lightheadedness. Patient has been feeling tired and exhausted even with small activity recently. EKG showed atrial fibrillation with rapid ventricular rate, 111 D-dimer 1.15 BUN 25 and creatinine 1.71 BNP 01736 Troponin 0.016 and 0.019 Chest x-ray showed small bilateral pleural effusions and/or atelectasis. Patient was continued on telemetry monitoring. Started on metoprolol 20 mg twice a day and continue with anticoagulation with xarelto. Patient was given 1 dose of xarelto in doctor's office. Anticoagulation was changed to Eliquis as per cardiology recommendations.. 2-D echocardiogram showed normal ejection fraction. Low probability for PE as per VQ scan. VQ scan was done due to elevated d-dimer level. Continue the home medications and follow up renal function. Hold Aldactone and lisinopril due to acute kidney injury.. Patient is clinically stable to be discharged home. PHYSICAL EXAMINATION: Patient is lying in the bed comfortably, no acute distress, awake alert and oriented.. HEENT: Normocephalic. Neck is supple. Pupils reactive. Nostrils clear. Oral cavity is moist. Ears reveal no drainage. Neck reveals no JVD, carotid bruits, or thyromegaly. CHEST EXAMINATION: Trachea is central. Symmetrical expansion. Lung armstrong clear to auscultation and percussion. CARDIAC: Normal S1, S2 with no gallops. No murmurs ABDOMEN: Soft. Bowel sounds normal. No organomegaly. No abdominal bruits. Extremities: reveal no edema. No clubbing or cyanosis Neurologically awake, alert, oriented x3 with well-coordinated movements. No focal deficits noted Skin: No rash or skin lesions. Psychiatric: Coperative. Nonsuicidal Musculoskeletal: No joint swelling or deformity. Normal range of motion. Discharge vitals reviewed. Total time taken greater than 35 minutes including 18 minutes for counseling and coordination of care. Patient Condition at Discharge: Good Plan - Discharge Summary Discharge Rx Participant: No New Discharge Prescriptions: New Apixaban [Eliquis] 5 mg PO BID #60 tab Metoprolol Tartrate [Lopressor] 25 mg PO BID 30 Days #60 tab Continue Clopidogrel [Plavix] 75 mg PO DAILY #30 tab Insulin Glargine,Hum.rec.anlog [Lantus Solostar] 14 unit SQ QAM INSULIN ASPART (NovoLOG) [NovoLOG (formulary)] See Protocol SQ DAILY amLODIPine [Norvasc] 10 mg PO DAILY Atorvastatin [Lipitor] 40 mg PO HS Insulin Glargine,Hum.rec.anlog [Lantus Solostar] 12 units SQ HS Discontinued Lisinopril [Zestril] 20 mg PO DAILY Spironolactone [Aldactone] 50 mg PO DAILY #30 tab Discharge Medication List Clopidogrel [Plavix] 75 mg PO DAILY #30 tab 01/21/14 [Rx] INSULIN ASPART (NovoLOG) [NovoLOG (formulary)] See Protocol SQ DAILY 03/12/16 [History] Insulin Glargine,Hum.rec.anlog [Lantus Solostar] 14 unit SQ QAM 03/12/16 [History] Atorvastatin [Lipitor] 40 mg PO HS 11/11/18 [History] Insulin Glargine,Hum.rec.anlog [Lantus Solostar] 12 units SQ HS 11/11/18 [History] amLODIPine [Norvasc] 10 mg PO DAILY 11/11/18 [History] Apixaban [Eliquis] 5 mg PO BID #60 tab 11/12/18 [Rx] Metoprolol Tartrate [Lopressor] 25 mg PO BID 30 Days #60 tab 11/12/18 [Rx] Follow up Appointment(s)/Referral(s): Beulah Reyes MD [Primary Care Provider] - 11/15/18 1:00 pm Levon Barlow MD [STAFF PHYSICIAN] - 1 Week Ambulatory/Diagnostic Orders: Basic Metabolic Panel [LAB.AMB] Time Frame: 2 Days, Location: None Selected Complete Blood Count w/diff [LAB.AMB] Time Frame: 2 Days, Location: None Selected Patient Instructions/Handouts: A-fib (Atrial Fibrillation) (DC) Activity/Diet/Wound Care/Special Instructions: Call ([employer]) to further investigate insurance coverage for [employer] and/or to see if you qualify for patient assistance program through [employer] Continue current diet Activity Limited until follow-up Follow-up with cardiology in the outpatient setting Follow-up with primary care provider this week Repeat labs in 2-3 days Discharge Disposition: HOME SELF-CARE
== END 2018-11-12 16:44 | disposition home or self-care (01) ==
LOC: EC 13:45 → 3SCARD 15:51 → INTOOBSV 15:51 → 3SCARD 17:54
PROVIDERS: ADMIT Internal Medicine; ATTEND Internal Medicine
DX: I48.91 Unspecified atrial fibrillation (principal); I11.0 Hypertensive heart disease with heart failure; I50.9 Heart failure, unspecified; N17.9 Acute kidney failure, unspecified; R94.31 Abnormal electrocardiogram [ECG] [EKG]; R79.89 Other specified abnormal findings of blood chemistry; I25.10 Atherosclerotic heart disease of native coronary artery without angina pectoris; Z95.5 Presence of coronary angioplasty implant and graft; Z86.73 Personal history of transient ischemic attack (TIA), and cerebral infarction without residual deficits; E11.9 Type 2 diabetes mellitus without complications; K21.9 Gastro-esophageal reflux disease without esophagitis; E78.5 Hyperlipidemia, unspecified; I25.2 Old myocardial infarction; M19.90 Unspecified osteoarthritis, unspecified site; N40.0 Benign prostatic hyperplasia without lower urinary tract symptoms; M54.5 Low back pain; Z79.02 Long term (current) use of antithrombotics/antiplatelets; Z79.01 Long term (current) use of anticoagulants; Z79.899 Other long term (current) drug therapy; Z79.4 Long term (current) use of insulin; Z88.8 Allergy status to other drugs, medicaments and biological substances; Z83.3 Family history of diabetes mellitus; Z82.49 Family history of ischemic heart disease and other diseases of the circulatory system; Z80.1 Family history of malignant neoplasm of trachea, bronchus and lung
CPT/HCPCS: 99291; 36415; 93005; 93306; 85379; 83880; 80061; 80053; 80048; 83735; 84484 ×2; 85025 ×2; 85610; 85730; 71046; 78582; G0378 ×3; A9540; A9567

== ENCOUNTER 2018-11-22 11:30 | Inpatient (IN) | payer MEDICARE ==
[2018-11-22] MEDS ORDERED: SODIUM CHLORIDE 0.9% 1,000 ML IV STA (11:36)
[2018-11-22 12:03] LABS: Basophils % (A) 0 %; Eosinophils % (A) 1 %; HCT 36.6 % (39.0-53.0); HGB 11.5 gm/dL (13.0-17.5); Hypochromasia Slight; Lymphocytes # (A) 0.7 k/uL (1.0-4.8); Lymphocytes % (A) 9 %; MCH 30.4 pg (25.0-35.0); MCHC 31.5 g/dL (31.0-37.0); MCV 96.3 fL (80.0-100.0); Mean Platelet Volume 8.6; Monocytes # (A) 0.4 k/uL (0-1.0); Monocytes % (A) 4 %; Neutrophils % (A) 85 %; Platelet Count 188 k/uL (150-450); WBC 8.2 k/uL (3.8-10.6)
--- NOTE | 2018-11-22 12:06 | ED ---
General Adult HPI - General Chief complaint: Shortness of Breath Stated complaint: Afib, water retention Time Seen by Provider: 11/22/18 11:36 Source: patient, family Mode of arrival: wheelchair Limitations: no limitations - History of Present Illness Initial comments: Dictation was produced using [address] dictation software. please excuse any grammatical, word or spelling errors. Chief Complaint: 70-year-old male sent in by primary care physician for concern of new onset CHF. History of Present Illness: Is a 70-year-old male he was recently diagnosed with new onset atrial fibrillation. He was discharged from the hospital approximately 2 weeks ago. At that time he was evaluated by cardiology. Started on L Patel and put on rate controlling medication. He is discharged an last week followed up with primary care physician. He was discharged at that time. He was at his PCPs office and saw the nurse felt like he had symptoms of new-onset heart failure. He had recent 11 pound weight in the past week with worsening bilateral lower extremity edema. Patient states he is having difficulty sleeping but denies any significant shortness of breath time. Otherwise feels well except for Generalized History The ROS documented in this emergency department record has been reviewed and confirmed by me. Those systems with pertinent positive or negative responses have been documented in the HPI. All other systems are other negative and/or noncontributory. PHYSICAL EXAM: General Impression: Alert and oriented x3, not in acute distress HEENT: Normocephalic atraumatic, extra-ocular movements intact, pupils equal and reactive to light bilaterally, mucous membranes moist. Cardiovascular: Heart regular rate and rhythm, S1&S2 audible, no murmurs, rubs or gallops Chest: Lungs clear to auscultation bilaterally, no rhonchi, no wheeze, no rales Abdomen: Bowel sounds present, abdomen soft, non-tender, non-distended, no organomegaly Musculoskeletal: Pulses present and equal in all extremities, 2+ pitting edema Motor: no focal deficits noted Neurological: CN II-XII grossly intact, no focal motor or sensory deficits noted Skin: Intact with no visualized rashes Psych: Normal affect and mood ED course: 78-year-old male presents with concerns for new onset heart failure. Signs upon arrival shows findings within acceptable limits. Medications reviewed. Patient is a history of A. fib and is currently on eliquis Laboratory evaluation obtained. Hemoglobin stable at 11.5. No leukocytosis. Coag panel unremarkable. Metabolic panel shows mild non-gap acidosis. Patient's creatinine 2.09 which is around patient's baseline but slightly elevated. Patient's cardiac enzymes negative. Prematurity peptide is 240,000. Chest x-ray shows small pleural effusions. Patient is in some respiratory distress however not requiring any BiPAP. Patient's clinical presentation is given consistent with heart failure. Patient be admitted to Dr. Lamar has now. Cardiology consultation. She admitted to heart failure pathway. EKG interpretation: Ventricular rate 81, A. fib, QS 120, QTc 522. - Related Data Home Medications Medication Instructions Recorded Confirmed INSULIN ASPART (NovoLOG) [NovoLOG See Protocol SQ DAILY 03/12/16 11/22/18 (formulary)] Insulin Glargine,Hum.rec.anlog 14 unit SQ QAM 03/12/16 11/22/18 [Lantus Solostar] Atorvastatin [Lipitor] 40 mg PO HS 11/11/18 11/22/18 Insulin Glargine,Hum.rec.anlog 12 units SQ HS 11/11/18 11/22/18 [Lantus Solostar] amLODIPine [Norvasc] 10 mg PO DAILY 11/11/18 11/22/18 Amiodarone [Cordarone] 200 mg PO BID 11/22/18 11/22/18 Furosemide [Lasix] 20 mg PO DAILY 11/22/18 11/22/18 Glucagon Emergency Kit 1 mg IM ONCE PRN 11/22/18 11/22/18 Lisinopril [Zestril] 10 mg PO DAILY 11/22/18 11/22/18 Previous Rx's Medication Instructions Recorded Clopidogrel [Plavix] 75 mg PO DAILY #30 tab 01/21/14 Apixaban [Eliquis] 5 mg PO BID #60 tab 11/12/18 Metoprolol Tartrate [Lopressor] 25 mg PO BID 30 Days #60 tab 11/12/18 Allergies Allergy/AdvReac Type Severity Reaction Status Date / Time metformin Allergy Unknown Verified 11/22/18 12:12 Review of Systems ROS Statement: Those systems with pertinent positive or pertinent negative responses have been documented in the HPI. ROS Other: All systems not noted in ROS Statement are negative. Past Medical History Past Medical History: Coronary Artery Disease (CAD), Chest Pain / Angina, Heart Failure, CVA/TIA, Diabetes Mellitus, GERD/Reflux, Hyperlipidemia, Hypertension, Myocardial Infarction ([place]), Musculoskeletal Disorder, Osteoarthritis (OA), Prostate Disorder Additional Past Medical History / Comment(s): IDDM type II, increased weakness over past year, problems with gas build up and abdominal distention when this occurs-last BM 03/13/16-normal, BPH, low back pain, L eye with blurry [id number]-[id number] eye doctor and are watching this. Last Myocardial Infarction Date:: 01/17/14 History of Any Multi-Drug Resistant Organisms: None Reported Past Surgical History: Heart Catheterization With Stent Additional Past Surgical History / Comment(s): Hx 4 stents Past Anesthesia/Blood Transfusion Reactions: No Reported Reaction Date of Last Stent Placement:: 2013 Past Psychological History: No Psychological Hx Reported Smoking Status: Never smoker Past Alcohol Use History: None Reported Past Drug Use History: None Reported - Past Family History Mother Family Medical History: Coronary Artery Disease (CAD), Diabetes Mellitus Additional Family Medical History / Comment(s): Mother at the age of 72 yrs and pt thinks possible due to [place] Father Family Medical History: Cancer Additional Family Medical History / Comment(s): Father of lung cancer at the age of 66yrs. Sister(s) Family Medical History: Congestive Heart Failure (CHF), Diabetes Mellitus Brother(s) Family Medical History: Myocardial Infarction ([place]) Daughter(s) Family Medical History: No Reported History General Exam Limitations: no limitations Course Vital Signs 11/22/18 11/22/18 11:31 13:34 Temperature 97.4 F L Pulse Rate 90 78 Respiratory 20 20 Rate Blood Pressure 106/63 108/70 O2 Sat by Pulse 97 95 Oximetry Medical Decision Making - Lab Data Result diagrams: 11/22/18 11:50 11/22/18 11:50 Lab Results 11/22/18 11/22/18 11/22/18 Range/Units 11:50 11:50 11:50 WBC 8.2 (3.8-10.6) k/uL RBC 3.80 L (4.30-5.90) m/uL Hgb 11.5 L (13.0-17.5) gm/dL Hct 36.6 L (39.0-53.0) % MCV 96.3 (80.0-100.0) fL MCH 30.4 (25.0-35.0) pg MCHC 31.5 (31.0-37.0) g/dL RDW 14.0 (11.5-15.5) % Plt Count 188 (150-450) k/uL Neutrophils % 85 % Lymphocytes % 9 % Monocytes % 4 % Eosinophils % 1 % Basophils % 0 % Neutrophils # 7.0 (1.3-7.7) k/uL Lymphocytes # 0.7 L (1.0-4.8) k/uL Monocytes # 0.4 (0-1.0) k/uL Eosinophils # 0.0 (0-0.7) k/uL Basophils # 0.0 (0-0.2) k/uL Hypochromasia Slight PT (9.0-12.0) sec INR (<1.2) APTT (22.0-30.0) sec Sodium 138 (137-145) mmol/L Potassium 5.0 (3.5-5.1) mmol/L Chloride 109 H (98-107) mmol/L Carbon Dioxide 19 L (22-30) mmol/L Anion Gap 10 mmol/L BUN 42 H (9-20) mg/dL Creatinine 2.09 H (0.66-1.25) mg/dL Est GFR (CKD-EPI)AfAm 34 (>60 ml/min/1.73 sqM) Est GFR (CKD-EPI)NonAf 29 (>60 ml/min/1.73 sqM) Glucose 237 H (74-99) mg/dL Calcium 8.7 (8.4-10.2) mg/dL Total Bilirubin 0.9 (0.2-1.3) mg/dL AST 29 (17-59) U/L ALT 51 (21-72) U/L Alkaline Phosphatase 78 (38-126) U/L Troponin I (0.000-0.034) ng/mL NT-Pro-B Natriuret Pep 38694 pg/mL Total Protein 6.4 (6.3-8.2) g/dL Albumin 3.7 (3.5-5.0) g/dL 11/22/18 11/22/18 Range/Units 11:50 11:50 WBC (3.8-10.6) k/uL RBC (4.30-5.90) m/uL Hgb (13.0-17.5) gm/dL Hct (39.0-53.0) % MCV (80.0-100.0) fL MCH (25.0-35.0) pg MCHC (31.0-37.0) g/dL RDW (11.5-15.5) % Plt Count (150-450) k/uL Neutrophils % % Lymphocytes % % Monocytes % % Eosinophils % % Basophils % % Neutrophils # (1.3-7.7) k/uL Lymphocytes # (1.0-4.8) k/uL Monocytes # (0-1.0) k/uL Eosinophils # (0-0.7) k/uL Basophils # (0-0.2) k/uL Hypochromasia PT 11.4 (9.0-12.0) sec INR 1.1 (<1.2) APTT 26.2 (22.0-30.0) sec Sodium (137-145) mmol/L Potassium (3.5-5.1) mmol/L Chloride (98-107) mmol/L Carbon Dioxide (22-30) mmol/L Anion Gap mmol/L BUN (9-20) mg/dL Creatinine (0.66-1.25) mg/dL Est GFR (CKD-EPI)AfAm (>60 ml/min/1.73 sqM) Est GFR (CKD-EPI)NonAf (>60 ml/min/1.73 sqM) Glucose (74-99) mg/dL Calcium (8.4-10.2) mg/dL Total Bilirubin (0.2-1.3) mg/dL AST (17-59) U/L ALT (21-72) U/L Alkaline Phosphatase (38-126) U/L Troponin I <0.012 (0.000-0.034) ng/mL NT-Pro-B Natriuret Pep pg/mL Total Protein (6.3-8.2) g/dL Albumin (3.5-5.0) g/dL Disposition Clinical Impression: Heart failure Disposition: ADMITTED IP TO THIS [facility] Condition: Fair Referrals: Beulah Reyes MD [Primary Care Provider] - 1-2 days Decision Time: 14:36
[2018-11-22 12:13] LABS: INR 1.1 (<1.2); Partial Thromboplastin Time 26.2 sec (22.0-30.0); Prothrombin Time 11.4 sec (9.0-12.0)
[2018-11-22 12:14] LABS: Albumin 3.7 g/dL (3.5-5.0); Calcium 8.7 mg/dL (8.4-10.2); Total Bilirubin 0.9 mg/dL (0.2-1.3); Total Protein 6.4 g/dL (6.3-8.2)
--- NOTE | 2018-11-22 12:22 | XR ---
EXAMINATION TYPE: XR chest 2V DATE OF EXAM: 11/22/2018 COMPARISON: 11/11/2018 03/12/2016 INDICATION: Difficulty breathing TECHNIQUE: Frontal and lateral views of the chest are obtained. FINDINGS: The heart size is normal. The pulmonary vasculature is normal. Bibasilar infiltrates are present. Correlate for atelectasis. A small effusion should also be conside red. Scattered densities are within the mid lungs could be small granuloma present previously these w ere present on an older comparison is well and appears stable IMPRESSION: 1. Small bilateral subsegmental atelectasis and/or small pleural effusions.
[2018-11-22] MEDS: SODIUM CHLORIDE 0.9% 1,000 ML IV SCH (15:26)
[2018-11-22 15:29] LABS: T4, Free (Free Thyroxine) 1.34 ng/dL (0.78-2.19)
[2018-11-22] MEDS ORDERED: ONDANSETRON 4 MG/2 ML VIAL IVP STA (15:52)
[2018-11-22] MEDS ORDERED: INFLUENZA VACCINE (6 MOS+) 60 MCG/0.5 ML SYRINGE IM ONE (15:57)
[2018-11-22] MEDS ORDERED: FUROSEMIDE 10 MG/ML 4 ML VIAL IV SCH (16:00)
[2018-11-22 16:44] LABS: Glucose,Whole Blood 187 mg/dL (75-99)
--- NOTE | 2018-11-22 16:58 | P.HPIM ---
History of Present Illness Patient is a 78-year-old gentleman came in with the comments of increased weight gain orthopnea or shortness of breath denied denied any significant paroxysmal nocturnal dyspnea. Patient was recently diagnosed with new-onset atrial fibrillation. At that time patient's EF is found to be around 20% with the [id number] pulmonary hypertension . Patient had global hypokinesis. On exam patient has a JVD elevated up to his year. Patient has extensive 3+ pitting pedal edema. Patient has small pleural effusions. an amiodarone and metoprolol at home for atrial fibrillation patient is on anticoagulation. Patient is comparing of cough with sputum production but does not know the color the sputum Review of Systems REVIEW OF SYSTEMS: CONSTITUTIONAL: No fever, no malaise, no fatigue. HEENT: No recent visual problems or hearing problems. Denied any sore throat. CARDIOVASCULAR: No chest pain, no palpitations, no syncope. PULMONARY:, no hemoptysis. GASTROINTESTINAL: No diarrhea, no nausea, no vomiting, no abdominal pain. NEUROLOGICAL: No headaches, no weakness, no numbness. HEMATOLOGICAL: Denies any bleeding or petechiae. GENITOURINARY: Denies any burning micturition, frequency, or urgency. MUSCULOSKELETAL/RHEUMATOLOGICAL: Denies any joint pain, swelling, or any muscle pain. ENDOCRINE: Denies any polyuria or polydipsia. The rest of the 14-point review of systems is negative. Past Medical History Past Medical History: Atrial Fibrillation, Coronary Artery Disease (CAD), Chest Pain / Angina, Heart Failure, CVA/TIA, Diabetes Mellitus, GERD/Reflux, Hyperlipidemia, Hypertension, Myocardial Infarction ([place]), Musculoskeletal Di sorder, Osteoarthritis (OA), Prostate Disorder Additional Past Medical History / Comment(s): Pt recently admitted to [facility] on 11/11/18 with new onset Afib/RVR, acute CHF, acute kidney injury possible CKD stage III. Other hx: IDDM type II, TIAs, increased weakness, problems with gas build up/abdominal distention, BPH, low back pain, Last Myocardial Infarction Date:: 01/17/14 History of Any Multi-Drug Resistant Organisms: None Reported Past Surgical History: Heart Catheterization With Stent Additional Past Surgical History / Comment(s): Hx 4 stents Past Anesthesia/Blood Transfusion Reactions: No Reported Reaction Date of Last Stent Placement:: 2013 Smoking Status: Never smoker - Past Family History Mother Family Medical History: Coronary Artery Disease (CAD), Diabetes Mellitus Additional Family Medical History / Comment(s): Mother at the age of 72 yrs and pt thinks possible due to [place] Father Family Medical History: Cancer Additional Family Medical History / Comment(s): Father of lung cancer at the age of 66yrs. Sister(s) Family Medical History: Congestive Heart Failure (CHF), Diabetes Mellitus Brother(s) Family Medical History: Myocardial Infarction ([place]) Daughter(s) Family Medical History: No Reported History Medications and Allergies Home Medications Medication Instructions Recorded Confirmed Type Clopidogrel [Plavix] 75 mg PO DAILY #30 tab 01/21/14 11/22/18 Rx INSULIN ASPART (NovoLOG) [NovoLOG See Protocol SQ DAILY 03/12/16 11/22/18 History (formulary)] Insulin Glargine,Hum.rec.anlog 14 unit SQ QAM 03/12/16 11/22/18 History [Lantus Solostar] Atorvastatin [Lipitor] 40 mg PO HS 11/11/18 11/22/18 History Insulin Glargine,Hum.rec.anlog 12 units SQ HS 11/11/18 11/22/18 History [Lantus Solostar] amLODIPine [Norvasc] 10 mg PO DAILY 11/11/18 11/22/18 History Apixaban [Eliquis] 5 mg PO BID #60 tab 11/12/18 11/22/18 Rx Metoprolol Tartrate [Lopressor] 25 mg PO BID 30 Days #60 tab 11/12/18 11/22/18 Rx Amiodarone [Cordarone] 200 mg PO BID 11/22/18 11/22/18 History Furosemide [Lasix] 20 mg PO DAILY 11/22/18 11/22/18 History Glucagon Emergency Kit 1 mg IM ONCE PRN 11/22/18 11/22/18 History Lisinopril [Zestril] 10 mg PO DAILY 11/22/18 11/22/18 History Allergies Allergy/AdvReac Type Severity Reaction Status Date / Time metformin Allergy Unknown Verified 11/22/18 12:12 Physical Exam Vitals: Vital Signs Temp Pulse Pulse Resp BP BP Pulse Ox 11/22/18 16:00 97.5 F L 94 16 127/78 93 L 11/22/18 15:19 79 20 111/76 97 11/22/18 13:34 78 20 108/70 95 11/22/18 11:31 97.4 F L 90 20 106/63 97 Intake and Output 11/22/18 11/22/18 11/22/18 06:59 14:59 22:59 Other: Weight 98.43 kg PHYSICAL EXAMINATION: GENERAL: The patient is alert and oriented x3, not in any acute distress. Well developed, well nourished. HEENT: Pupils are round and equally reacting to light. EOMI. No scleral icterus. No conjunctival pallor. Normocephalic, atraumatic. No pharyngeal erythema. No thyromegaly. CARDIOVASCULAR: S1 and S2 present. No murmurs, rubs, or gallops. Irregular Rhythm elevated JVD PULMONARY: Chest is clear to auscultation, no wheezing or crackles. ABDOMEN: Soft, nontender, nondistended, normoactive bowel sounds. No palpable organomegaly. MUSCULOSKELETAL: No joint swelling or deformity. EXTREMITIES: No cyanosis, clubbing, or pedal edema. NEUROLOGICAL: Gross neurological examination did not reveal any focal deficits. SKIN: No rashes. Results CBC & Chem 7: 11/22/18 11:50 11/22/18 11:50 Labs: Abnormal Lab Results - Last 24 Hours (Table) 11/22/18 11/22/18 11/22/18 Range/Units 11:50 11:50 11:50 RBC 3.80 L (4.30-5.90) m/uL Hgb 11.5 L (13.0-17.5) gm/dL Hct 36.6 L (39.0-53.0) % Lymphocytes # 0.7 L (1.0-4.8) k/uL Chloride 109 H (98-107) mmol/L Carbon Dioxide 19 L (22-30) mmol/L BUN 42 H (9-20) mg/dL Creatinine 2.09 H (0.66-1.25) mg/dL Glucose 237 H (74-99) mg/dL POC Glucose (mg/dL) (75-99) mg/dL TSH 5.780 H (0.465-4.680) mIU/L 11/22/18 Range/Units 16:41 RBC (4.30-5.90) m/uL Hgb (13.0-17.5) gm/dL Hct (39.0-53.0) % Lymphocytes # (1.0-4.8) k/uL Chloride (98-107) mmol/L Carbon Dioxide (22-30) mmol/L BUN (9-20) mg/dL Creatinine (0.66-1.25) mg/dL Glucose (74-99) mg/dL POC Glucose (mg/dL) 187 H (75-99) mg/dL TSH (0.465-4.680) mIU/L Thrombosis Risk Factor Assmnt - Choose All That Apply Any of the Below Risk Factors Present?: Yes Each Factor Represents 1 point: Heart failure (<1month), Obesity (BMI >25), Swollen legs (current) Other Risk Factors: Yes Each Risk Factor Represents 3 Points: Age 75 years or older Other congenital or acquired thrombophilia - If yes, enter type in comment: No Thrombosis Risk Factor Assessment Total Risk Factor Score: 6 Thrombosis Risk Factor Assessment Level: High Risk Assessment and Plan Plan: -Congestive heart failure chronic systolic dysfunction with acute exacerbation patient the will be started on every 8 hourly 40 mg Lasix with the close see toring of basic metabolic profile. Patient lisinopril will be held temporarily because of acute renal failure can be started tomorrow if creatinine continues to improve. Chronic A. fib presently rate controlled continue with anti-correlation continue with rate control medications. -Acute renal failure: Prerenal azotemia secondary to heart failure exacerbation expected to improve with diuresis -Sick euthyroid syndrome with elevated TSH and normal T4, repeat TSH as an outpatient about a month -Non-anion gap metabolic acidosis secondary to hyperchloremia -Hyperlipidemia -Type 2 diabetes mellitus patient will be resumed on his home regimen along with sliding scale
[2018-11-22 20:32] LABS: Glucose,Whole Blood 263 mg/dL (75-99)
[2018-11-22] MEDS ORDERED: INSULIN DETEMIR (LEVEMIR) 100 UNIT/ML SYR SQ SCH (21:00)
[2018-11-22] MEDS: INSULIN ASPART (NovoLOG) 100 UNIT/ML VIAL SQ SCH (21:00)
[2018-11-22] MEDS: METOPROLOL TARTRATE 25 MG TAB PO SCH (21:01)
[2018-11-22] MEDS: AMIODARONE 200 MG TAB PO SCH (21:01)
[2018-11-22] MEDS: ATORVASTATIN 40 MG TAB PO SCH (21:01)
[2018-11-22] MEDS: APIXABAN 5 MG TAB PO SCH (21:01)
[2018-11-22] MEDS: FUROSEMIDE 10 MG/ML 4 ML VIAL IV SCH (23:26)
[2018-11-23 02:04] LABS: Glucose,Whole Blood 60 mg/dL (75-99)
[2018-11-23 02:24] LABS: Glucose,Whole Blood 85 mg/dL (75-99)
[2018-11-23 06:28] LABS: Glucose,Whole Blood 69 mg/dL (75-99)
[2018-11-23] MEDS: INSULIN ASPART (NovoLOG) 100 UNIT/ML VIAL SQ SCH ×4 (06:38→20:04)
[2018-11-23 06:42] LABS: Glucose,Whole Blood 72 mg/dL (75-99)
[2018-11-23] MEDS ORDERED: INSULIN DETEMIR (LEVEMIR) 100 UNIT/ML SYR SQ SCH (07:00)
[2018-11-23] MEDS: METOPROLOL TARTRATE 25 MG TAB PO SCH ×2 (08:04→20:05)
[2018-11-23] MEDS: FUROSEMIDE 10 MG/ML 4 ML VIAL IV SCH ×2 (08:04→16:58)
[2018-11-23] MEDS: AMIODARONE 200 MG TAB PO SCH ×2 (08:05→20:05)
[2018-11-23] MEDS: APIXABAN 5 MG TAB PO SCH ×2 (08:05→20:05)
[2018-11-23] MEDS: CLOPIDOGREL 75 MG TAB PO SCH (08:05)
--- NOTE | 2018-11-23 08:21 | P.PN ---
Subjective 72-year-old pleasant male came in for CHF exacerbation. Patient JVD improved patient is feeling much better today continue with the IV Lasix and do not have any labs available at this time we'll order basic metabolic profile his serum creatinine yesterday was to am expecting it to improve with improvement in heart failure. Once his blood pressure stabilizes and creatinine stabilizes patient will be resumed on SANCHEZ inhibitor. Constitutional: Denied any fatigue denied any fever. Cardio vascular: denied any chest pain, palpitations Gastrointestinal denied any nausea vomiting Pulmonary: As mentioned above Neurologic denied any new focal deficits All inpatient medications were reviewed and appropriate changes in these medications as dictated in the interval history and assessment and plan. Objective - Vital Signs Vital signs: Vital Signs Temp 98.2 F 11/23/18 08:06 Pulse 88 11/23/18 08:06 Resp 18 11/23/18 08:06 BP 96/59 11/23/18 08:06 Pulse Ox 95 11/23/18 08:06 Intake & Output 11/22/18 11/23/18 11/23/18 18:59 06:59 18:59 Intake Total 360 Output Total 900 Balance 360 -900 Weight 98.43 kg 94.4 kg Intake: Oral 360 Output: Urine 900 Other: # Voids 1 - Exam PHYSICAL EXAMINATION: GENERAL: The patient is alert and oriented x3, not in any acute distress. Well developed, well nourished. HEENT: Pupils are round and equally reacting to light. EOMI. No scleral icterus. No conjunctival pallor. Normocephalic, atraumatic. No pharyngeal erythema. No thyromegaly. CARDIOVASCULAR: S1 and S2 present. No murmurs, rubs, or gallops. Irregular Rhythm, JVD improved PULMONARY: Chest is clear to auscultation, no wheezing or crackles. ABDOMEN: Soft, nontender, nondistended, normoactive bowel sounds. No palpable organomegaly. MUSCULOSKELETAL: No joint swelling or deformity. EXTREMITIES: No cyanosis, clubbing, or pedal edema. NEUROLOGICAL: Gross neurological examination did not reveal any focal deficits. SKIN: No rashes. - EENT ENT: Present: NA/AT - Labs CBC & Chem 7: 11/22/18 11:50 11/22/18 11:50 Labs: Abnormal Lab Results - Last 24 Hours (Table) 11/22/18 11/22/18 11/22/18 Range/Units 11:50 11:50 11:50 RBC 3.80 L (4.30-5.90) m/uL Hgb 11.5 L (13.0-17.5) gm/dL Hct 36.6 L (39.0-53.0) % Lymphocytes # 0.7 L (1.0-4.8) k/uL Chloride 109 H (98-107) mmol/L Carbon Dioxide 19 L (22-30) mmol/L BUN 42 H (9-20) mg/dL Creatinine 2.09 H (0.66-1.25) mg/dL Glucose 237 H (74-99) mg/dL POC Glucose (mg/dL) (75-99) mg/dL TSH 5.780 H (0.465-4.680) mIU/L 11/22/18 11/22/18 11/23/18 Range/Units 16:41 20:30 02:03 RBC (4.30-5.90) m/uL Hgb (13.0-17.5) gm/dL Hct (39.0-53.0) % Lymphocytes # (1.0-4.8) k/uL Chloride (98-107) mmol/L Carbon Dioxide (22-30) mmol/L BUN (9-20) mg/dL Creatinine (0.66-1.25) mg/dL Glucose (74-99) mg/dL POC Glucose (mg/dL) 187 H 263 H 60 L (75-99) mg/dL TSH (0.465-4.680) mIU/L 11/23/18 11/23/18 Range/Units 06:26 06:41 RBC (4.30-5.90) m/uL Hgb (13.0-17.5) gm/dL Hct (39.0-53.0) % Lymphocytes # (1.0-4.8) k/uL Chloride (98-107) mmol/L Carbon Dioxide (22-30) mmol/L BUN (9-20) mg/dL Creatinine (0.66-1.25) mg/dL Glucose (74-99) mg/dL POC Glucose (mg/dL) 69 L 72 L (75-99) mg/dL TSH (0.465-4.680) mIU/L Assessment and Plan Plan: -Congestive heart failure chronic systolic dysfunction with acute exacerbation patient the will be started on every 8 hourly 40 mg Lasix with the close monitoring of basic metabolic profile. Patient lisinopril will be held temporarily because of acute renal failure can be started tomorrow if creatinine continues to improve. Chronic A. fib presently rate controlled continue with anti-correlation continue with rate control medications. -Acute renal failure: Prerenal azotemia secondary to heart failure exacerbation expected to improve with diuresis -Sick euthyroid syndrome with elevated TSH and normal T4, repeat TSH as an outpatient about a month -Non-anion gap metabolic acidosis secondary to hyperchloremia -Hyperlipidemia -Type 2 diabetes mellitus patient's blood sugars are bit low O cut down the Lantus does continue with sliding scale
[2018-11-23 08:33] LABS: Calcium 8.3 mg/dL (8.4-10.2); Potassium 4.3 mmol/L (3.5-5.1)
[2018-11-23] MEDS ORDERED: LISINOPRIL 10 MG TAB PO SCH (09:00)
[2018-11-23 10:49] VITALS: BMI 28.2
[2018-11-23 11:52] LABS: Glucose,Whole Blood 192 mg/dL (75-99)
--- NOTE | 2018-11-23 13:26 | P.CRDCN ---
History of Present Illness Consult date: 11/23/18 Reason for Consult (text): Acute on Chronic Systolic Heart Failure Chief complaint: Acute on Chronic Systolic Heart Failure History of present illness: HISTORY OF PRESENT ILLNESS AND PLAN: This is a [78]-year-old [male] with history of hiatal hernia, hypertension, hyperlipidemia, diabetes mellitus, CKD3, CAD status post PCI 4 to LAD, STEMI, ischemic cardiomyopathy with EF of less than 20%, new onset atrial fibrillation and acute on chronic systolic heart failure. Patient presents with complaints of [shortness of breath, 11 pound weight gain and recent new onset atrial fibrillation. Patient was hospitalized approximately 2 weeks ago with new onset atrial fibrillation dc'd on 11/12/18. Pt was started on ELIQUIS 5 mg twice daily and amiodarone 200 mg twice daily. Patient currently lying comfortable in bed, AOx4, up and ambulates with ease. Patient continues atrial fibrillation controlled rate, heart rate 81. VSS. On room air. Patient follows with Dr. Barlow in office. Patient states he was advised to have defibrillator insertion by Dr. Barlow and refused. Patient advised again this visit for need of d efibrillator and continues to choose not to proceed at this time. Patient currently has no complaints of chest pain, chest pressure, shortness of breath or palpitations. Lower extremity edema has significantly improved with 40 mg of Lasix IV every 8H. No smoking. No EtOH.]. SIGNIFICANT PAST MEDICAL HISTORY: [Hiatal hernia, hypertension, hyperlipidemia, diabetes mellitus, CKD3, CAD status post PCI 4 to LAD, ischemic cardiomyopathy with EF of less than 20%, new onset atrial fibrillation and acute on chronic systolic heart failure.] PAST SURGICAL HISTORY: See list. EKG shows [atrial fibrillation], heart rate [81] bpm. Troponins negative x [1]. less than 0.012 SIGNIFICANT LABORATORY VALUES: [hemoglobin 11.5 hematocrit 36.6. K+ 5.0. BUN 42/CR 2.09. Glucose 237. BNP 24,000. tsh 5.780.]. Chest x-ray [11/22/2018 SMALL BILATERAL EFFUSIONS]. Most recent echo dated = [11/12/2018] indicates [EF less than 20%. borderline concentric LVH. Severe global hypokinesis of LV. RV mildly enlarged. LA severely dilated. Severe MR. Mild TR. Mild to moderate pulmonary hypertension]. Most recent cardiac cath dated [01/17/2014 = PCI to LAD 4. ] REVIEW OF SYSTEMS: CONSTITUTIONAL: [Denies fever. Denies chills.] EYES: Denies blurred vision. [Denies blurred vision or vision changes. Denies eye pain.] EARS, NOSE, MOUTH & THROAT: [Denies headache. Denies sore throat. Denies ear pain Denies hemoptysis.] CARDIOVASCULAR: [Denies chest pain. Denies current shortness of breath. Denies current orthopnea. Denies PND. Denies palpitations. Complains of bilateral lower extremity edema.] RESPIRATORY: [Denies cough. Denies current shortness of breath. ] GASTROINTESTINAL: [Denies abdominal pain or distention. Denies diarrhea. Denies constipation. Denies nausea. Denies vomiting.] MUSCULOSKELETAL: [Denies myalgias.] INTEGUMENTARY: [Denies pruitis. Denies rash.] ENDOCRINE: [Denies fatigue. Complains of increased weight change. Denies polydipsia. Denies polyurina Denies heat/cold intolerance.] GENITOURINARY:[ Denies burning, hematuria or urgency with micturation.] HEMATOLOGIC: [Denies history of anemia. Denies bleeding.] NEUROLOGIC: [Denies numbness. Denies tingling. Denies weakness.] PSYCHIATRIC: [Denies anxiety. Denies depression.] PHYSICAL EXAM: GENERAL: Well developed, in no acute distress. HEENT: Head is atraumatic, normocephalic. Pupils are equal, round. Extra ocular movements intact. Mucous membranes moist. Neck supple. Positive JVD. No carotid bruit. No thyromegaly. LUNGS: Clear to auscultation no wheezes, rales or rhonchi. No chest wall tenderness on palpation or with deep breathing. HEART: Irregular rate and rhythm, no rubs or gallops. S1 and S2 heard. No murmur. ABDOMEN: Abdominal exam, WNL. Bowel sounds x4 quads. Soft, non-tender, without masses, organomegaly, or abdominal aorta enlargement. EXTREMITIES/VASCULAR: Extremities have easily palpable radial, femoral, dorsalis pedis and posterior tibial pulses. No cyanosis, calf tenderness. 2-3+ BLE edema. NEUROLOGIC: Patient is awake, alert and oriented x3. No focal neurologic abnormalities. FINAL IMPRESSION: 1. [acute on chronic systolic heart failure]. 2. [new onset atrial fibrillation]. 3. [ischemic cardiomyopathy]. 4. [diabetes mellitus]. 5. [CKD3]. PLAN: [Patient advised of need for defibrillator to prevent sudden . Patient chooses not to have defibrillator insertion at this time. We will continue Lasix 40 mg IV every 8 hours. Continue metoprolol tartrate 25 mg twice dialy and Eliquis 5 mg twice dialy. Heart healthy diet. Will continue to follow. ] Nurse Practitioner note has been reviewed by the Physician. Signing provider agrees with the documented findings, assessment and plan of care. Past Medical History Past Medical History: Atrial Fibrillation, Coronary Artery Disease (CAD), Chest Pain / Angina, Heart Failure, CVA/TIA, Diabetes Mellitus, GERD/Reflux, Hyperlipi demia, Hypertension, Myocardial Infarction (NM), Musculoskeletal Disorder, Osteoarthritis (OA), Prostate Disorder Additional Past Medical History / Comment(s): Pt recently admitted to [facility] on 11/11/18 with new onset Afib/RVR, acute CHF, acute kidney injury possible CKD stage III. Other hx: IDDM type II, TIAs, increased weakness, problems with gas build up/abdominal distention, BPH, low back pain, Last Myocardial Infarction Date:: 01/17/14 History of Any Multi-Drug Resistant Organisms: None Reported Past Surgical History: Heart Catheterization With Stent Additional Past Surgical History / Comment(s): Hx 4 stents Past Anesthesia/Blood Transfusion Reactions: No Reported Reaction Date of Last Stent Placement:: 2013 Smoking Status: Never smoker - Past Family History Mother Family Medical History: Coronary Artery Disease (CAD), Diabetes Mellitus Additional Family Medical History / Comment(s): Mother at the age of 72 yrs and pt thinks possible due to NM Father Family Medical History: Cancer Additional Family Medical History / Comment(s): Father of lung cancer at the age of 66yrs. Sister(s) Family Medical History: Congestive Heart Failure (CHF), Diabetes Mellitus Brother(s) Family Medical History: Myocardial Infarction (NM) Daughter(s) Family Medical History: No Reported History Medications and Allergies Home Medications Medication Instructions Recorded Confirmed Type Clopidogrel [Plavix] 75 mg PO DAILY #30 tab 01/21/14 11/22/18 Rx INSULIN ASPART (NovoLOG) [NovoLOG See Protocol SQ DAILY 03/12/16 11/22/18 History (formulary)] Insulin Glargine,Hum.rec.anlog 14 unit SQ QAM 03/12/16 11/22/18 History [Lantus Solostar] Atorvastatin [Lipitor] 40 mg PO HS 11/11/18 11/22/18 History Insulin Glargine,Hum.rec.anlog 12 units SQ HS 11/11/18 11/22/18 History [Lantus Solostar] amLODIPine [Norvasc] 10 mg PO DAILY 11/11/18 11/22/18 History Apixaban [Eliquis] 5 mg PO BID #60 tab 11/12/18 11/22/18 Rx Metoprolol Tartrate [Lopressor] 25 mg PO BID 30 Days #60 tab 11/12/18 11/22/18 Rx Amiodarone [Cordarone] 200 mg PO BID 11/22/18 11/22/18 History Furosemide [Lasix] 20 mg PO DAILY 11/22/18 11/22/18 History Glucagon Emergency Kit 1 mg IM ONCE PRN 11/22/18 11/22/18 History Lisinopril [Zestril] 10 mg PO DAILY 11/22/18 11/22/18 History Allergies Allergy/AdvReac Type Severity Reaction Status Date / Time metformin Allergy Unknown Verified 11/22/18 12:12 Physical Exam Vitals: Vital Signs Temp Pulse Pulse Resp BP BP Pulse Ox 11/23/18 08:06 98.2 F 88 16 96/59 95 11/23/18 03:39 97.9 F 86 18 96/53 95 11/22/18 23:30 98.1 F 85 16 91/62 93 L 11/22/18 19:15 97.6 F 82 16 104/63 94 L 11/22/18 16:00 97.5 F L 94 16 127/78 93 L 11/22/18 15:19 79 20 111/76 97 11/22/18 13:34 78 20 108/70 95 Intake and Output 11/22/18 11/23/18 11/23/18 22:59 06:59 14:59 Intake Total 360 360 Output Total 900 1100 Balance 360 -900 -740 Intake: Oral 360 360 Output: Urine 900 1100 Other: # Voids 1 2 Weight 94.4 kg 94.4 kg Results 11/22/18 11:50 11/23/18 07:54 Comprehensive Metabolic Panel 11/23/18 Range/Units 07:54 Sodium 138 (137-145) mmol/L Potassium 4.3 (3.5-5.1) mmol/L Chloride 108 H (98-107) mmol/L Carbon Dioxide 20 L (22-30) mmol/L BUN 42 H (9-20) mg/dL Creatinine 2.03 H (0.66-1.25) mg/dL Glucose 158 H (74-99) mg/dL Calcium 8.3 L (8.4-10.2) mg/dL Current Medications Generic Name Dose Route Start Last Admin Trade Name Freq PRN Reason Stop Dose Admin Amiodarone HCl 200 mg 11/22/18 21:00 11/23/18 08:05 Cordarone PO 200 mg BID NANCIE Administration Apixaban 5 mg 11/22/18 21:00 11/23/18 08:05 Eliquis PO 5 mg BID NANCIE Administration Atorvastatin Calcium 40 mg 11/22/18 21:00 11/22/18 21:01 Lipitor PO 40 mg HS NANCIE Administration Clopidogrel Bisulfate 75 mg 11/23/18 09:00 11/23/18 08:05 Plavix PO 75 mg DAILY NANCIE Administration Furosemide 40 mg 11/23/18 00:00 11/23/18 08:04 Lasix IV 40 mg Q8HR NANCIE Administration Sodium Chloride 1,000 mls @ 20 mls/hr 11/22/18 14:45 11/22/18 15:26 Saline 0.9% IV Not Given .Q24H NANCIE Insulin Aspart 0 unit 11/22/18 21:00 11/23/18 12:20 Novolog SQ 2 unit ACHS NANCIE Administration Protocol Insulin Detemir 10 unit 11/23/18 21:00 Levemir SQ HS NANCIE Insulin Detemir 10 unit 11/24/18 07:00 Levemir SQ DAILY@0700 NANCIE Metoprolol Tartrate 25 mg 11/22/18 21:00 11/23/18 08:04 Lopressor PO 25 mg BID NANCIE Administration Intake and Output 11/22/18 11/23/18 11/23/18 22:59 06:59 14:59 Intake Total 360 360 Output Total 900 1100 Balance 360 -900 -740 Intake: Oral 360 360 Output: Urine 900 1100 Other: # Voids 1 2 Weight 94.4 kg 94.4 kg Patient Weight 11/24/18 06:59 Weight 94.4 kg 11/22/18 11:50 11/23/18 07:54 - EKG Interpretation EKG shows: atrial fibrillation EKG Interpretations (text) atrial fibrillation controlled rate
[2018-11-23] MEDS: SODIUM CHLORIDE 0.9% 1,000 ML IV SCH (16:07)
[2018-11-23] MEDS ORDERED: MENTHOL (NICE) LOZENGE MUCOUS MEM PRN (16:31)
[2018-11-23 16:54] LABS: Glucose,Whole Blood 78 mg/dL (75-99)
[2018-11-23 20:01] LABS: Glucose,Whole Blood 171 mg/dL (75-99)
[2018-11-23] MEDS: INSULIN DETEMIR (LEVEMIR) 100 UNIT/ML SYR SQ SCH (20:04)
[2018-11-23] MEDS: ATORVASTATIN 40 MG TAB PO SCH (20:05)
[2018-11-24] MEDS: FUROSEMIDE 10 MG/ML 4 ML VIAL IV SCH (00:13)
[2018-11-24 02:13] LABS: Glucose,Whole Blood 134 mg/dL (75-99)
[2018-11-24 05:50] LABS: Glucose,Whole Blood 125 mg/dL (75-99)
[2018-11-24 05:54] LABS: Calcium 9.1 mg/dL (8.4-10.2); Potassium 4.3 mmol/L (3.5-5.1)
[2018-11-24 06:39] LABS: Glucose,Whole Blood 139 mg/dL (75-99)
[2018-11-24 06:40] VITALS: RESP 18
[2018-11-24] MEDS ORDERED: INSULIN DETEMIR (LEVEMIR) 100 UNIT/ML SYR SQ SCH (07:00)
[2018-11-24] MEDS: INSULIN ASPART (NovoLOG) 100 UNIT/ML VIAL SQ SCH (07:02)
[2018-11-24] MEDS: METOPROLOL TARTRATE 25 MG TAB PO SCH (07:58)
[2018-11-24] MEDS: CLOPIDOGREL 75 MG TAB PO SCH (07:58)
[2018-11-24] MEDS: AMIODARONE 200 MG TAB PO SCH (07:59)
[2018-11-24] MEDS: INSULIN DETEMIR (LEVEMIR) 100 UNIT/ML SYR SQ SCH (08:00)
[2018-11-24 08:09] VITALS: TEMP 97.8
[2018-11-24] MEDS ORDERED: FUROSEMIDE 40 MG TAB PO SCH (09:00)
[2018-11-24] MEDS ORDERED: APIXABAN 2.5 MG TABLET PO SCH (09:00)
--- NOTE | 2018-11-24 11:29 | P.DS ---
Providers Date of admission: 11/22/18 14:33 Attending physician: Audi Arango Consults: 11/22/18 14:33 Consult Physician Routine Consulting Provider: Elizabet Smith Consult Reason/Comments: heart failure Do you want consulting provider notified?: Yes Primary care physician: Beulah Reyes [facility] Course: 72-year-old pleasant male came in for CHF exacerbation. Patient JVD improved patient is feeling much better today continue with the IV Lasix and do not have any labs available at this time we'll order basic metabolic profile his serum creatinine yesterday was to am expecting it to improve with improvement in heart failure. Once his blood pressure stabilizes and creatinine stabilizes patient will be resumed on SANCHEZ inhibitor. 11/24/2018 Patient creatinine went up to 2.2 patient will be switched to oral Lasix and expected to improve patient is euvolemic or hypovolemic patient will be discharged today. Patient was started on low-dose SANCHEZ inhibitor. Patient is complaining of some dysphagia which is chronic and then I tried to get barium swallow apparently they're unable to do it here and patient can get this test done as an outpatient patient will be referred to gastroneurology and will be discharged today PHYSICAL EXAMINATION: GENERAL: The patient is alert and oriented x3, not in any acute distress. Well developed, well nourished. HEENT: Pupils are round and equally reacting to light. EOMI. No scleral icterus. No conjunctival pallor. Normocephalic, atraumatic. No pharyngeal erythema. No thyromegaly. CARDIOVASCULAR: S1 and S2 present. No murmurs, rubs, or gallops. PULMONARY: Chest is clear to auscultation, no wheezing or crackles. ABDOMEN: Soft, nontender, nondistended, normoactive bowel sounds. No palpable organomegaly. MUSCULOSKELETAL: No joint swelling or deformity. EXTREMITIES: No cyanosis, clubbing, or pedal edema. NEUROLOGICAL: Gross neurological examination did not reveal any focal deficits. SKIN: No rashes. Assessment and Plan Plan: -Congestive heart failure chronic systolic dysfunction with acute exacerbation Chronic A. fib presently rate controlled continue with anti-correlation continue with rate control medications. -Acute renal failure: Prerenal azotemia secondary to heart failure exacerbation now due to excessive diuresis -Sick euthyroid syndrome with elevated TSH and normal T4, repeat TSH as an outpatient about a month -Non-anion gap metabolic acidosis secondary to hyperchloremia -Hyperlipidemia -Type 2 diabetes mellitus patient's blood sugars are bit low O cut down the Lantus does continue with sliding scale Patient Condition at Discharge: Fair Plan - Discharge Summary Discharge Rx Participant: No New Discharge Prescriptions: New Apixaban [Eliquis] 2.5 mg PO BID #60 tablet Furosemide [Lasix] 40 mg PO BID@0900,1600 #60 tab Insulin Detemir (Levemir) [Levemir] 10 unit SQ HS syr Aspirin 81 mg PO DAILY #30 chewable Continue INSULIN ASPART (NovoLOG) [NovoLOG (formulary)] See Protocol SQ DAILY Atorvastatin [Lipitor] 40 mg PO HS Metoprolol Tartrate [Lopressor] 25 mg PO BID 30 Days #60 tab Glucagon Emergency Kit 1 mg IM ONCE PRN PRN Reason: Blood Sugar - Low Amiodarone [Cordarone] 200 mg PO BID Changed Insulin Glargine,Hum.rec.anlog [Lantus Solostar] 10 unit SQ QAM #0 Lisinopril [Zestril] 5 mg PO DAILY #0 Discontinued Clopidogrel [Plavix] 75 mg PO DAILY #30 tab amLODIPine [Norvasc] 10 mg PO DAILY Insulin Glargine,Hum.rec.anlog [Lantus Solostar] 12 units SQ HS Apixaban [Eliquis] 5 mg PO BID #60 tab Furosemide [Lasix] 20 mg PO DAILY Discharge Medication List INSULIN ASPART (NovoLOG) [NovoLOG (formulary)] See Protocol SQ DAILY 03/12/16 [History] Atorvastatin [Lipitor] 40 mg PO HS 11/11/18 [History] Metoprolol Tartrate [Lopressor] 25 mg PO BID 30 Days #60 tab 11/12/18 [Rx] Amiodarone [Cordarone] 200 mg PO BID 11/22/18 [History] Glucagon Emergency Kit 1 mg IM ONCE PRN 11/22/18 [History] Apixaban [Eliquis] 2.5 mg PO BID #60 tablet 11/24/18 [Rx] Aspirin 81 mg PO DAILY #30 chewable 11/24/18 [Rx] Furosemide [Lasix] 40 mg PO BID@0900,1600 #60 tab 11/24/18 [Rx] Insulin Detemir (Levemir) [Levemir] 10 unit SQ HS syr 11/24/18 [Rx] Insulin Glargine,Hum.rec.anlog [Lantus Solostar] 10 unit SQ QAM #0 11/24/18 [Rx] Lisinopril [Zestril] 5 mg PO DAILY #0 11/24/18 [Rx] Follow up Appointment(s)/Referral(s): Beulah Reyes MD [Primary Care Provider] - 3 Days Ambulatory/Diagnostic Orders: Basic Metabolic Panel [LAB.AMB] Time Frame: 3 Days, Location: None Selected Discharge Disposition: HOME SELF-CARE
[2018-11-24] MEDS: SODIUM CHLORIDE 0.9% 1,000 ML IV SCH (11:34)
[2018-11-24 11:41] LABS: Glucose,Whole Blood 145 mg/dL (75-99)
[2018-11-24 12:47] VITALS: BP 101/57; PULSE 77
--- NOTE | 2018-11-24 14:07 | P.PN ---
Subjective Progress Note Date: 11/24/18 Principal diagnosis: Systolic CHF/New AFIB/ cardiomyopathy Patient doing well this a.m. resting comfortably in bed with no acute distress. Patient has no current complaints of chest pain, chest pressure, shortness of breath or palpitations. VSS. No lower extremity edema. Patient continues to deny AICD insertion and understands risks associated with sudden cardiac . Okay for discharge from a cardiology standpoint. Change IV Lasix to oral. Patient to follow up with cardiology in one week with Dr. Barlow. PHYSICAL EXAM: VITAL SIGNS: VSS. AFIB controlled rate, hr 95. GENERAL: Well developed, in no acute distress. HEENT: Head is atraumatic, normocephalic. Pupils are equal, round. Extra ocular movements intact. Mucous membranes moist. Neck supple. No JVD. No carotid bruit. No thyromegaly. LUNGS: Clear to auscultation no wheezes, rales or rhonchi. No chest wall tenderness on palpation or with deep breathing. HEART: Irregular rate and rhythm, no rubs or gallops. S1 and S2 heard. No murmur. ABDOMEN: Abdominal exam, WNL. Bowel sounds x4 quads. Soft, non-tender, without masses, organomegaly, or abdominal aorta enlargement. EXTREMITIES/VASCULAR: Extremities have easily palpable radial, femoral, dorsalis pedis and posterior tibial pulses. No cyanosis, calf tenderness. No BLE edema. NEUROLOGIC: Patient is awake, alert and oriented x3. No focal neurologic abnormalities. Objective - Vital Signs Vital signs: Vital Signs Temp 97.8 F 11/24/18 12:00 Pulse 77 11/24/18 12:00 Resp 18 11/24/18 12:00 BP 101/57 11/24/18 12:00 Pulse Ox 98 11/24/18 12:00 Intake & Output 11/23/18 11/24/18 11/24/18 18:59 06:59 18:59 Intake Total 840 300 Output Total 1100 2601 Balance -260 -2601 300 Weight 94.4 kg 94.1 kg Intake: Oral 840 300 Output: Urine 1100 2601 Other: # Voids 2 2 - Labs CBC & Chem 7: 11/22/18 11:50 11/24/18 04:57 Labs: Abnormal Lab Results - Last 24 Hours (Table) 11/23/18 11/24/18 11/24/18 Range/Units 19:59 02:01 04:57 BUN 41 H (9-20) mg/dL Creatinine 2.31 H (0.66-1.25) mg/dL Glucose 119 H (74-99) mg/dL POC Glucose (mg/dL) 171 H 134 H (75-99) mg/dL 11/24/18 11/24/18 11/24/18 Range/Units 05:47 06:38 11:40 BUN (9-20) mg/dL Creatinine (0.66-1.25) mg/dL Glucose (74-99) mg/dL POC Glucose (mg/dL) 125 H 139 H 145 H (75-99) mg/dL
== END 2018-11-24 13:50 | disposition home or self-care (01) | DRG 291 ==
LOC: EC 11:30 → 3SCARD 14:33
PROVIDERS: ADMIT Internal Medicine; ATTEND Internal Medicine
DX: I13.0 Hypertensive heart and chronic kidney disease with heart failure and stage 1 through stage 4 chronic kidney disease, or unspecified chronic kidney disease (principal); I50.23 Acute on chronic systolic (congestive) heart failure; E87.2 Acidosis; N17.9 Acute kidney failure, unspecified; I48.20 Chronic atrial fibrillation, unspecified; E11.22 Type 2 diabetes mellitus with diabetic chronic kidney disease; E87.8 Other disorders of electrolyte and fluid balance, not elsewhere classified; I27.20 Pulmonary hypertension, unspecified; R13.10 Dysphagia, unspecified; I08.1 Rheumatic disorders of both mitral and tricuspid valves; I25.5 Ischemic cardiomyopathy; R06.03 Acute respiratory distress; N18.3 Chronic kidney disease, stage 3 (moderate); E07.81 Sick-euthyroid syndrome; E78.5 Hyperlipidemia, unspecified; I25.10 Atherosclerotic heart disease of native coronary artery without angina pectoris; I25.2 Old myocardial infarction; K21.9 Gastro-esophageal reflux disease without esophagitis; N40.0 Benign prostatic hyperplasia without lower urinary tract symptoms; K44.9 Diaphragmatic hernia without obstruction or gangrene; M19.90 Unspecified osteoarthritis, unspecified site; Z79.01 Long term (current) use of anticoagulants; Z79.02 Long term (current) use of antithrombotics/antiplatelets; Z79.4 Long term (current) use of insulin; Z79.899 Other long term (current) drug therapy; Z88.8 Allergy status to other drugs, medicaments and biological substances; Z86.73 Personal history of transient ischemic attack (TIA), and cerebral infarction without residual deficits; Z95.5 Presence of coronary angioplasty implant and graft; Z80.1 Family history of malignant neoplasm of trachea, bronchus and lung; Z82.49 Family history of ischemic heart disease and other diseases of the circulatory system; Z83.3 Family history of diabetes mellitus
CPT/HCPCS: 36415; 71046; 80048; 80053; 83880; 84439; 84443; 84484; 85025; 85610; 85730; 90686; 93005; 99285

== ENCOUNTER 2019-09-29 06:04 | Day surgery (SDC) | payer MEDICARE ==
[2019-09-23 13:21] VITALS: BMI 24.6
[~2019-09-29 06:04] MED LIST: LACTATED RINGERS 1,000 ML IV SCH; LIDOCAINE 1% (10MG/ML) FOR IV START INTRADERMA PRN; SODIUM CHLORIDE 0.9% 1,000 ML IV SCH; ceFAZolin 1,000 MG in SODIUM CHLORIDE 0.9% IRRIGATIO 250 ML IRRIGATION ONE
[2019-09-29 06:37] VITALS: RESP 16; TEMP 98.2
[2019-09-29 06:42] LABS: Glucose,Whole Blood 212 mg/dL (75-99)
[2019-09-29] MEDS: INSULIN ASPART (NovoLOG) 100 UNIT/ML VIAL SQ SCH ×2 (06:54→10:55)
[2019-09-29] MEDS ORDERED: diphenhydrAMINE 50 MG/ML 1 ML VIAL ONE (07:26)
[2019-09-29] MEDS ORDERED: MIDAZOLAM 2 MG/2 ML VIAL ONE (07:26)
[2019-09-29] MEDS ORDERED: fentaNYL (PF) 50 MCG/ML 2 ML AMP ONE (07:26)
[2019-09-29] MEDS ORDERED: SODIUM CHLORIDE 0.9% 250 ML IV ONE (07:30)
[2019-09-29] MEDS ORDERED: LIDOCAINE 1% INJ 10MG/ML (20 ML MDV) ONE (07:45)
[2019-09-29] MEDS ORDERED: LIDOCAINE 1% INJ 10MG/ML (20 ML MDV) SQ ONE ×2 (08:14→08:24)
--- NOTE | 2019-09-29 10:19 | P.PCN ---
Preoperative Diagnosis: Diagnosis Severe ischemic cardio myopathy left radical ejection fraction less than 20% Old anterior wall ND with LAD stenting in 2014 Persistent atrial fibrillation Chronic kidney disease Congestive heart failure chronic, systolic Recurrent heart failure symptoms with recent hospitalization Left bundle branch block pattern that is a recent development. Baseline QRS width was about 140 ms On Dilantin at a medical treatment Patient underwent biventricular ICD implantation with physiologic septal pacing successfully Specifically in this case of significant narrowing with normalization of the QRS occurred at low outputs as compared to high outputs Defibrillation level testing was deferred at this point Plan Maximize beta yahir therapy for rate control of atrial fibrillation Restart anticoagulation today Defibrillation level testing and optimization of physiologic septal pacing /biventricular pacing to normalize the QRS in about 2 months
--- NOTE | 2019-09-29 10:20 | P.PRLE ---
RE: Yunior Ng Dear Beulah Yunior Ng underwent biventricular ICD implantation with His bundle pacing for physiologic septal pacing for severe cardio myopathy and left bundle branch blo ck and heart failure symptoms. Patients with AV node disease or severe bradycardia, in whom the anticipated right ventricular pacing percentage will be high with standard dual-chamber pacing are at a disadvantage since RV pacing over years promotes LV systolic dysfunction and heart failure as well as increased episodes of atrial fibrillation. Biventricular pacing either using an LV lead in the coronary epicardial veins or His bundle pacing promotes a synchronized LV contraction and preserves LV systolic function with reduction in heart failure. One advantage of His bundle pacing is that it promotes conduction down both the normal bundles, simulating intrinsic conduction and preserving LV systolic function This is especially so in patients who already have LV dysfunction I would now like to maximize his beta blockers and promote His bundle pacing with a resultant narrow QRS Thank you for entrusting me with the care of the patient Warm regards Sincerely Willard Palomares
[2019-09-29] MEDS ORDERED: HYDROcodone/APAP 5-325MG 1 EACH TAB PO PRN (10:21)
[2019-09-29] MEDS ORDERED: ACETAMINOPHEN TAB 325 MG TAB PO PRN (10:21)
[2019-09-29] MEDS ORDERED: ACETAMINOPHEN IV (For NPO) 1,000 MG in EMPTY BAG 1 BAG IVPB ONE (10:21)
[2019-09-29] MEDS ORDERED: METOPROLOL SUCCINATE (ER) 50 MG TAB.ER.24H PO STA (10:29)
[2019-09-29] MEDS ORDERED: APIXABAN 2.5 MG TABLET PO ONE (10:30)
[2019-09-29 10:52] LABS: Glucose,Whole Blood 184 mg/dL (75-99)
[2019-09-29] MEDS ORDERED: INSULIN ASPART (NovoLOG) 100 UNIT/ML VIAL SQ SCH (11:00)
--- NOTE | 2019-09-29 13:01 | XR ---
EXAMINATION TYPE: XR chest 2V DATE OF EXAM: 09/29/2019 CLINICAL HISTORY: Pacemaker insertion. TECHNIQUE: Frontal and lateral views of the chest are obtained. COMPARISON: Chest radiograph 11/22/2018 FINDINGS: Left-sided AICD, with right atrial appendage lead, and biventricular leads within expected radiographic position. No pneumothorax. The cardiomediastinal silhouette is within normal limits for size. Scattered granulomas redemonstrated. No pleural effusion. The osseous structures are intact. IMPRESSION: Appropriate radiographic position of left-sided biventricular cardiac AICD leads. No evid ence of pneumothorax.
[2019-09-29 13:52] VITALS: BP 112/62; PULSE 72
--- NOTE | 2019-09-29 16:06 | PCN ---
PROCEDURE NOTE Yunior Ng is a 79-year-old male patient with known severe ischemic cardiomyopathy, recurrent heart failure symptoms and the left bundle branch block with a wide QRS of 140 milliseconds, who is brought in for a biventricular ICD implantation. He is already on guideline-directed medical treatment. Patient was brought to the EP lab in a fasting state. Written informed consent was obtained prior to the procedure. The left shoulder area was prepped and draped as per protocol. 1% lidocaine used for local anesthesia. A 4 cm incision made parallel to the deltopectoral groove, about 1.5 cm medial to it. The incision was carried down to the level of the pectoralis muscle. A subfascial pocket was made, hemostasis was assured. the left axillary vein was accessed at 3 separate points under fluoroscopy and via appropriately-sized introducer sheaths, 3 leads were positioned. The atrial lead was a Medtronic model #5076, 52 cm length and serial #[id number]. The patient was in atrial fibrillation at the start of the study. Pacing impedance 684 ohms, inhibitory waves 2.1 mV, atrial fibrillation P-waves 2.1 mV. The lead was stable and 10 V test was negative. An ICD lead was a single coil lead, model #6935M, 62 cm length and serial #[id number]. This was positioned in the RV apex. R-waves 8.5 mV, pacing impedance 708 ohms, pacing threshold 0.6 V at 0.5 milliseconds, 10 V test was negative. The LV port was connected to the HIS bundle lead. This was screwed into the HIS bundle area. A large HIS bundle spike with a current of injury was noted and the lead was screwed in. The pacing thresholds were excellent. At high outputs, the QRS was widened but normalization of the QRS occurred as the outputs were reduced and below 2 V. The QRS normalized to about 110 milliseconds at an output of 1 V at 1 millisecond. The threshold was 0.5 V at 1 millisecond, selective capture pacing impedance 945 ohms. All sheaths were removed. All the leads were secured and the generator was implanted and secured. This was a Medtronic model #DTLV 1B, serial #[id number]. The leads and generator were then placed in the subfascial pocket. The wound was closed in 3 layers and dressed per protocol. RESULT: Successful biventricular ICD implantation with physiologic septal pacing. PLAN: Change metoprolol to 50 mg twice daily succinate for better rate control. Restart anticoagulation. Defibrillation level testing and physiologic septal pacing level optimization in about 2 months. Readdress abnormal PSH. In addition, oral potassium can be discontinued and spironolactone can be substituted and metolazone can be discontinued completely in the future. MMODL / IJN: [id number] /
[2019-09-29] MEDS ORDERED: APIXABAN 2.5 MG TABLET PO SCH (21:00)
== END 2019-09-29 14:06 | disposition home or self-care (01) ==
LOC: CATHEP 06:04
PROVIDERS: ATTEND Internal Medicine Clinical Cardiac Electrophysiology
DX: I25.5 Ischemic cardiomyopathy (principal); I13.0 Hypertensive heart and chronic kidney disease with heart failure and stage 1 through stage 4 chronic kidney disease, or unspecified chronic kidney disease; E11.22 Type 2 diabetes mellitus with diabetic chronic kidney disease; N18.9 Chronic kidney disease, unspecified; I50.22 Chronic systolic (congestive) heart failure; I44.7 Left bundle-branch block, unspecified; I48.21 Permanent atrial fibrillation; I25.10 Atherosclerotic heart disease of native coronary artery without angina pectoris; I25.2 Old myocardial infarction; Z95.5 Presence of coronary angioplasty implant and graft; E78.5 Hyperlipidemia, unspecified; Z79.01 Long term (current) use of anticoagulants; Z79.82 Long term (current) use of aspirin; Z79.4 Long term (current) use of insulin; Z79.899 Other long term (current) drug therapy
CPT/HCPCS: 33225; 33249; 71046; C1769 ×4; C1892; C1898; C1895; C1882; J2250; J1200; J0690 ×2; J2001; J3010; J0131

== ENCOUNTER 2020-09-07 19:13 | Inpatient (IN) | payer MEDICARE ==
[2020-09-07] MEDS ORDERED: SODIUM CHLORIDE 0.9% 1,000 ML IV STA (19:43)
[2020-09-07 20:13] LABS: Basophils # (A) 0.1 k/uL (0-0.2); Basophils % (A) 1 %; Eosinophils # (A) 0.1 k/uL (0-0.7); Eosinophils % (A) 1 %; HCT 40.4 % (39.0-53.0); HGB 13.2 gm/dL (13.0-17.5); Lymphocytes # (A) 1.4 k/uL (1.0-4.8); Lymphocytes % (A) 17 %; MCH 30.3 pg (25.0-35.0); MCHC 32.7 g/dL (31.0-37.0); MCV 92.7 fL (80.0-100.0); Mean Platelet Volume 8.9; Monocytes # (A) 0.4 k/uL (0-1.0); Monocytes % (A) 4 %; Neutrophils # (A) 6.3 k/uL (1.3-7.7); Neutrophils % (A) 76 %; Platelet Count 189 k/uL (150-450); RBC 4.36 m/uL (4.30-5.90); RDW 14.6 % (11.5-15.5); WBC 8.4 k/uL (3.8-10.6)
[2020-09-07] MEDS: DILTIAZEM DRIP BOLUS FROM BAG 1 MG SOLN IV ONE ×2 (20:15→22:29)
[2020-09-07] MEDS ORDERED: DILTIAZEM 125 MG in SODIUM CHLORIDE 0.9% 100 ML IV SCH (20:15)
[2020-09-07] MEDS ORDERED: SODIUM CHLORIDE 0.9% 500 ML 500 ML IV STA (20:21)
[2020-09-07 20:22] LABS: Albumin 3.9 g/dL (3.5-5.0); INR 1.2 (<1.2); Magnesium 1.5 mg/dL (1.6-2.3); Partial Thromboplastin Time 24.4 sec (22.0-30.0); Potassium 4.2 mmol/L (3.5-5.1); Prothrombin Time 12.1 sec (9.0-12.0); Total Protein 6.6 g/dL (6.3-8.2)
--- NOTE | 2020-09-07 20:39 | XR ---
EXAMINATION TYPE: XR chest 1V portable DATE OF EXAM: 09/07/2020 COMPARISON: 09/29/2019 HISTORY: Dysrhythmia TECHNIQUE: Single view FINDINGS: Heart is enlarged. There is mild pulmonary congestion. There is mild blunting of the costop hrenic angles. There is left axillary pacemaker. IMPRESSION: Mild congestive heart failure that is increased compared to old exam.
[2020-09-07] MEDS ORDERED: HEPARIN SODIUM 1,000 UN/ML (10ML VL) IV PRN (22:56)
[2020-09-07] MEDS ORDERED: HEPARIN SODIUM 1,000 UN/ML (10ML VL) IV ONE (22:56)
--- NOTE | 2020-09-07 22:58 | ED ---
Arrhythmia/Palpitations HPI - General Chief Complaint: Arrhythmia/Palpitations Stated Complaint: SOB,Weakness Time Seen by Provider: 09/07/20 19:42 Source: patient Mode of arrival: wheelchair Limitations: no limitations - History of Present Illness Initial Comments: This 80-year-old male presents with a complaint of some shortness of breath. It is difficult to determine the exact timing of this shortness of breath. He states that he's had it for several months. He denies any chest pain or palpitations. He apparently does have a history of atrial fibrillation and presents with atrial fibrillation with rapid ventricular response. He states that he stopped taking most of his medications 3 weeks ago due to them upsetting his stomach. He is still taking a couple of his medications. He states that he followed up with his case management assistant last month and they thought everything was going okay. He also followed up with his primary care recently and they do not note any significant abnormalities. He denies any fevers or chills. No other complaints or modifying factors. He does relate that he feels very weak. - Related Data Home Medications Medication Instructions Recorded Confirmed Atorvastatin [Lipitor] 40 mg PO HS 11/11/18 09/07/20 Insulin Glargine,Hum.rec.anlog 16 unit SQ DAILY 09/23/19 09/07/20 [Lantus Solostar] Potassium Chloride [Klor-Con 10] 20 meq PO BID 09/23/19 09/07/20 Tamsulosin [Flomax] 0.4 mg PO DAILY 09/23/19 09/07/20 metOLazone [Zaroxolyn] 2.5 mg PO DAILY 09/23/19 09/07/20 Furosemide [Lasix] 60 mg PO BID 09/07/20 09/07/20 Insulin Lispro 6 units SQ W/BRKFST 09/07/20 09/07/20 Insulin Lispro 6 units SQ W/LUNCH 09/07/20 09/07/20 Insulin Lispro 8 units SQ W/SUPPER 09/07/20 09/07/20 Insulin Lispro See Protocol SQ AC-TID PRN 09/07/20 09/07/20 Previous Rx's Medication Instructions Recorded Apixaban [Eliquis] 2.5 mg PO BID #60 tablet 11/24/18 lisinopriL [Zestril] 5 mg PO DAILY #0 11/24/18 Metoprolol Succinate (ER) [Toprol 50 mg PO DAILY #180 tab 09/29/19 XL] Allergies Allergy/AdvReac Type Severity Reaction Status Date / Time metformin Allergy Unknown Verified 09/07/20 21:28 Review of Systems ROS Statement: Those systems with pertinent positive or pertinent negative responses have been documented in the HPI. ROS Other: All systems not noted in ROS Statement are negative. Past Medical History Past Medical History: Atrial Fibrillation, CVA/TIA, Diabetes Mellitus, GE RD/Reflux, Hyperlipidemia, Hypertension, Myocardial Infarction ([place]), Musculoskeletal Disorder, Osteoarthritis (OA), Prostate Disorder, Renal Disease Additional Past Medical History / Comment(s): Pt recently admitted to [facility] on 11/11/18 with new onset Afib/RVR, acute CHF, acute kidney injury possible CKD stage III. Other hx: IDDM type II, TIAs, increased weakness, problems, BPH, low back pain, SEE DR ROLDAN'S HISTORY AND PHYSICAL FOR CARDIAC HISTORY Last Myocardial Infarction Date:: 01/17/14 History of Any Multi-Drug Resistant Organisms: None Reported Past Surgical History: Heart Catheterization With Stent Additional Past Surgical History / Comment(s): Hx CARDIAC-4 stents, LASER - BOTH EYES , CATARACT SURGERY - BOTH EYES Past Anesthesia/Blood Transfusion Reactions: No Reported Reaction Date of Last Stent Placement:: 2013 Past Psychological History: No Psychological Hx Reported Smoking Status: Never smoker Past Alcohol Use History: None Reported Past Drug Use History: None Reported - Past Family History Mother Family Medical History: Coronary Artery Disease (CAD), Diabetes Mellitus Additional Family Medical History / Comment(s): Mother at the age of 72 yrs and pt thinks possible due to [place] Father Family Medical History: Cancer Additional Family Medical History / Comment(s): Father of lung cancer at the age of 66yrs. Sister(s) Family Medical History: Congestive Heart Failure (CHF), Diabetes Mellitus Brother(s) Family Medical History: Myocardial Infarction ([place]) Daughter(s) Family Medical History: No Reported History General Exam - General Exam Comments Initial Comments: GENERAL: The patient is well nourished and well hydrated. VITAL SIGNS: Heart rate, blood pressure, respiratory rate reviewed as recorded in nurse's notes. EYES: Pupils are round and reactive. Extraocular movements are intact. No conjunctival / lid redness or swelling. ENT: No external evidence of injury, swelling, or ecchymosis. Airway is patent. Throat is clear. NECK: Nontender. No swelling or evidence of injury. No subcutaneous emphysema. Trachea is midline. No thyroid mass. HEART: Tachycardic irregular rhythm. Good peripheral pulses. LUNGS/CHEST: Breath sounds clear and equal bilaterally. No rales, rhonchi, or wheezes. No ecchymosis, subcutaneous emphysema, or tenderness. ABDOMEN: Abdomen soft without tenderness. No palpable masses or organomegaly. No peritoneal signs. No abdominal wall swelling or ecchymosis. EXTREMITIES: No extremity tenderness. Normal muscle tone and function. No thoracolumbar tenderness. NEUROLOGIC: Sensation is grossly intact. Cranial nerve exam reveals face is symmetrical, tongue is midline, speech is clear. SKIN: No abrasions or ecchymosis is noted. No induration or masses noted. PSYCHIATRIC: Alert and oriented. Appropriate behavior and judgment. Limitations: no limitations Course Vital Signs 09/07/20 09/07/20 09/07/20 19:26 20:13 20:30 Temperature 97.7 F Pulse Rate 144 H 146 H 130 H Respiratory 20 20 20 Rate Blood Pressure 143/87 102/77 104/65 O2 Sat by Pulse 99 98 98 Oximetry 09/07/20 09/07/20 09/07/20 20:40 20:50 21:10 Temperature Pulse Rate 124 H 131 H 118 H Respiratory 20 20 20 Rate Blood Pressure 97/86 115/96 95/72 O2 Sat by Pulse 98 98 97 Oximetry 09/07/20 09/07/20 09/07/20 21:40 22:00 22:30 Temperature Pulse Rate 107 H 103 H 102 H Respiratory 20 20 20 Rate Blood Pressure 98/75 103/66 118/81 O2 Sat by Pulse 97 97 97 Oximetry Medical Decision Making - Medical Decision Making The patient was seen and examined. All diagnostics were reviewed. He is placed on a monitoring coordinator and this shows a tachycardic rhythm at approximately 150 with irregularity. EKG shows atrial fibrillation with rapid ventricular response at a rate of 151. There is nonspecific T-wave abnormalities noted diffusely. There is no ST elevation identified. The QRS duration is 128, QTC intervals 418. The patient is started on a Cardizem drip. He later was started on heparin as well. On last check is heart rate was approximately 105 still irregular. The laboratory came back showing an elevation of his troponin. There is mild decrease in CO2. Is evidence of chronic renal insufficiency which is compared to previous and similar. Chest x-ray did not show any acute process. Is counseled regarding need to be compliant with his medication and only stop if his physicians recommend this. He previously was on blood thinner but has not been on a blood thinner for last 3 weeks. Case is discussed with the nurse practitioner for [facility] and she is agreeable with admission. Patient will be admitted to Dr. Arana to the cardiac unit. - Lab Data Result diagrams: 09/07/20 19:50 09/07/20 19:50 Lab Results 09/07/20 09/07/20 09/07/20 Range/Units 19:50 19:50 19:50 WBC 8.4 (3.8-10.6) k/uL RBC 4.36 (4.30-5.90) m/uL Hgb 13.2 (13.0-17.5) gm/dL Hct 40.4 (39.0-53.0) % MCV 92.7 (80.0-100.0) fL MCH 30.3 (25.0-35.0) pg MCHC 32.7 (31.0-37.0) g/dL RDW 14.6 (11.5-15.5) % Plt Count 189 (150-450) k/uL MPV 8.9 Neutrophils % 76 % Lymphocytes % 17 % Monocytes % 4 % Eosinophils % 1 % Basophils % 1 % Neutrophils # 6.3 (1.3-7.7) k/uL Lymphocytes # 1.4 (1.0-4.8) k/uL Monocytes # 0.4 (0-1.0) k/uL Eosinophils # 0.1 (0-0.7) k/uL Basophils # 0.1 (0-0.2) k/uL PT 12.1 H (9.0-12.0) sec INR 1.2 H (<1.2) APTT 24.4 (22.0-30.0) sec Sodium 134 L (137-145) mmol/L Potassium 4.2 (3.5-5.1) mmol/L Chloride 102 (98-107) mmol/L Carbon Dioxide 18 L (22-30) mmol/L Anion Gap 14 mmol/L BUN 61 H (9-20) mg/dL Creatinine 2.72 H (0.66-1.25) mg/dL Est GFR (CKD-EPI)AfAm 24 (>60 ml/min/1.73 sqM) Est GFR (CKD-EPI)NonAf 21 (>60 ml/min/1.73 sqM) Glucose 149 H (74-99) mg/dL Calcium 9.0 (8.4-10.2) mg/dL Magnesium 1.5 L (1.6-2.3) mg/dL Total Bilirubin 1.0 (0.2-1.3) mg/dL AST 29 (17-59) U/L ALT 23 (4-49) U/L Alkaline Phosphatase 91 (38-126) U/L Troponin I (0.000-0.034) ng/mL Total Protein 6.6 (6.3-8.2) g/dL Albumin 3.9 (3.5-5.0) g/dL TSH 4.750 H (0.465-4.680) mIU/L 09/07/20 Range/Units 19:50 WBC (3.8-10.6) k/uL RBC (4.30-5.90) m/uL Hgb (13.0-17.5) gm/dL Hct (39.0-53.0) % MCV (80.0-100.0) fL MCH (25.0-35.0) pg MCHC (31.0-37.0) g/dL RDW (11.5-15.5) % Plt Count (150-450) k/uL MPV Neutrophils % % Lymphocytes % % Monocytes % % Eosinophils % % Basophils % % Neutrophils # (1.3-7.7) k/uL Lymphocytes # (1.0-4.8) k/uL Monocytes # (0-1.0) k/uL Eosinophils # (0-0.7) k/uL Basophils # (0-0.2) k/uL PT (9.0-12.0) sec INR (<1.2) APTT (22.0-30.0) sec Sodium (137-145) mmol/L Potassium (3.5-5.1) mmol/L Chloride (98-107) mmol/L Carbon Dioxide (22-30) mmol/L Anion Gap mmol/L BUN (9-20) mg/dL Creatinine (0.66-1.25) mg/dL Est GFR (CKD-EPI)AfAm (>60 ml/min/1.73 sqM) Est GFR (CKD-EPI)NonAf (>60 ml/min/1.73 sqM) Glucose (74-99) mg/dL Calcium (8.4-10.2) mg/dL Magnesium (1.6-2.3) mg/dL Total Bilirubin (0.2-1.3) mg/dL AST (17-59) U/L ALT (4-49) U/L Alkaline Phosphatase (38-126) U/L Troponin I 0.421 H* (0.000-0.034) ng/mL Total Protein (6.3-8.2) g/dL Albumin (3.5-5.0) g/dL TSH (0.465-4.680) mIU/L Disposition Clinical Impression: Atrial fibrillation with rapid ventricular response, Elevated troponin, Dyspnea, Weakness, Noncompliance with medication regimen Disposition: ADMITTED IP TO THIS HOSP Condition: Fair Is patient prescribed a controlled substance at d/c from ED?: No Referrals: Beulah Reyes MD [Primary Care Provider] - 1-2 days Time of Disposition: 23:04 Decision Date: 09/07/20 Decision Time: 23:04
[2020-09-07] MEDS ORDERED: HEPARIN SOD,PORK IN 0.45% NACL 25,000 UNIT in 0.45% NACL 1 250ML.BAG IV SCH (23:00)
[2020-09-07] MEDS ORDERED: NITROGLYCERIN SL TABS 0.4 MG TAB SUBLINGUAL PRN (23:04)
[2020-09-07] MEDS ORDERED: ACETAMINOPHEN TAB 325 MG TAB PO PRN (23:04)
[2020-09-07] MEDS ORDERED: ASPIRIN 81 MG PO STA (23:04)
[2020-09-08 05:28] LABS: Basophils # (A) 0.1 k/uL (0-0.2); Basophils % (A) 1 %; Eosinophils # (A) 0.2 k/uL (0-0.7); Eosinophils % (A) 2 %; HCT 36.4 % (39.0-53.0); HGB 12.2 gm/dL (13.0-17.5); Lymphocytes # (A) 1.3 k/uL (1.0-4.8); Lymphocytes % (A) 16 %; MCH 31.2 pg (25.0-35.0); MCHC 33.6 g/dL (31.0-37.0); MCV 92.9 fL (80.0-100.0); Mean Platelet Volume 9.3; Monocytes # (A) 0.5 k/uL (0-1.0); Monocytes % (A) 7 %; Neutrophils # (A) 6.1 k/uL (1.3-7.7); Neutrophils % (A) 74 %; Platelet Count 153 k/uL (150-450); RBC 3.92 m/uL (4.30-5.90); RDW 14.4 % (11.5-15.5); WBC 8.3 k/uL (3.8-10.6)
[2020-09-08 06:00] LABS: INR 1.2 (<1.2); Partial Thromboplastin Time 44.4 sec (22.0-30.0); Prothrombin Time 12.3 sec (9.0-12.0)
[2020-09-08] MEDS: INSULIN ASPART (NovoLOG) 100 UNIT/ML VIAL SQ SCH ×4 (08:02→19:58)
[2020-09-08 08:04] LABS: Glucose,Whole Blood 154 mg/dL (75-99)
[2020-09-08] MEDS ORDERED: lisinopriL 5 MG TAB PO SCH (09:00)
[2020-09-08] MEDS ORDERED: FUROSEMIDE 20 MG TAB PO SCH (09:00)
[2020-09-08] MEDS ORDERED: metOLazone 2.5 MG TAB PO SCH (09:00)
[2020-09-08] MEDS ORDERED: ASPIRIN 325 MG TAB PO SCH (09:00)
[2020-09-08] MEDS ORDERED: METOPROLOL SUCCINATE (ER) 50 MG TAB.ER.24H PO SCH ×2 (09:00→21:00)
[2020-09-08] MEDS: ASPIRIN 81 MG PO SCH (10:31)
[2020-09-08] MEDS: APIXABAN 2.5 MG TABLET PO SCH ×2 (10:31→19:53)
[2020-09-08] MEDS: TAMSULOSIN 0.4 MG CAP.ER.24H PO SCH (10:31)
[2020-09-08] MEDS: POTASSIUM CHLORIDE ER 20 MEQ TAB.ER PO SCH ×2 (10:31→19:53)
[2020-09-08] MEDS: METOPROLOL SUCCINATE (ER) 50 MG TAB.ER.24H PO SCH ×2 (10:31→19:53)
[2020-09-08] MEDS: FUROSEMIDE 10 MG/ML 4 ML VIAL IV SCH ×3 (10:32→23:13)
[2020-09-08 11:04] LABS: Glucose,Whole Blood 212 mg/dL (75-99)
[2020-09-08] MEDS: INSULIN DETEMIR (LEVEMIR) 100 UNIT/ML SYR SQ SCH (11:06)
--- NOTE | 2020-09-08 11:35 | ECHOF ---
Referral Reason:dyspnea MEASUREMENTS -------- HEIGHT: 182.9 cm WEIGHT: 86.2 kg BP: 95/70 IVSd: 1.0 cm (0.6 - 1.1) LVIDd: 6.8 cm (3.9 - 5.3) LVPWd: 1.0 cm (0.6 - 1.1) IVSs: 1.3 cm LVIDs: 6.2 cm LVPWs: 1.2 cm LA Diam: 5.3 cm (2.7 - 3.8) LAESV Index (A-L): 63.49 ml/m MV EXCURSION: 12.169 mm (> 18.000) MV EF SLOPE: 69 mm/s (70 - 150) EPSS: 2.8 cm RAP: 5.00 mmHg RVSP: 44.10 mmHg FINDINGS -------- Pacerwire seen in RV and RA. This was a techncally difficult study with suboptimal views, , Lumason utilized for enhancement of im ages. The left ventricle is moderately dilated. There is severe hypokinesis of anterior wall and septum. Overall left ventricular systolic function is severely impaired with, an EF < 20%. The right ventricle is normal in size. The left atrium is markedly dilated. The right atrial size is normal. The aortic valve is trileaflet, and appears structurally normal. No aortic stenosis or regurgitation. Moderate mitral regurgitation is present. Mild tricuspid regurgitation present. There is mild pulmonary hypertension. The right ventricular systolic pressure, as measured by Doppler, is 44.10mmHg. Trace/mild (physiologic) pulmonic regurgitation. The aortic root size is normal. There is no pericardial effusion. CONCLUSIONS -------- 1. The left ventricle is moderately dilated. 2. There is severe global hypokinesis of LV . 3. Overall left ventricular systolic function is severely impaired with, an EF < 20%. 4. The left atrium is markedly dilated. 5. The right atrial size is normal. 6. The aortic valve is trileaflet, and appears structurally normal. No aortic stenosis or regurgitati on. 7. Moderate mitral regurgitation is present. 8. Mild tricuspid regurgitation present. 9. There is mild pulmonary hypertension. 10. The right ventricular systolic pressure, as measured by Doppler, is 44.10mmHg. 11. Trace/mild (physiologic) pulmonic regurgitation. 12. The aortic root size is normal. 13. There is no pericardial effusion. COOK CHILI: Talisha Rodriguez RDCS
--- NOTE | 2020-09-08 12:05 | P.HPIM ---
History of Present Illness 80-year-old pleasant male came in with compensative short of breath and orthopnea as well as palpitation patient is found to be in atrial fibrillation was also not failure. Patient has ejection fraction of 20% repeat echo cardiac exam showed EF of around 20%. Patient the is getting tired because of which he believed that his medications doing it and stop some of his medications which includes beta yahir has been taking his diuretics. Patient denied any fever chills chest x-ray showed some pulmonary edema. Patient baseline creatinine is around 1.7 present creatinine is 2.7 patient is hyponatremic mildly elevated troponins without any chest pain. Cardiology was consulted patient was started on IV Lasix. REVIEW OF SYSTEMS: CONSTITUTIONAL: No fever, no malaise, no fatigue. HEENT: No recent visual problems or hearing problems. Denied any sore throat. CARDIOVASCULAR: no syncope. PULMONARY: No shortness of breath, no cough, no hemoptysis. GASTROINTESTINAL: No diarrhea, no nausea, no vomiting, no abdominal pain. NEUROLOGICAL: No headaches, no weakness, no numbness. HEMATOLOGICAL: Denies any bleeding or petechiae. GENITOURINARY: Denies any burning micturition, frequency, or urgency. MUSCULOSKELETAL/RHEUMATOLOGICAL: Denies any joint pain, swelling, or any muscle pain. ENDOCRINE: Denies any polyuria or polydipsia. The rest of the 14-point review of systems is negative. PHYSICAL EXAMINATION: GENERAL: The patient is alert and oriented x3, not in any acute distress. Well developed, well nourished. HEENT: Pupils are round and equally reacting to light. EOMI. No scleral icterus. No conjunctival pallor. Normocephalic, atraumatic. No pharyngeal erythema. No thyromegaly. CARDIOVASCULAR: S1 and S2 present. No murmurs, rubs, or gallops. Does have elevated JVD PULMONARY: Chest is clear to auscultation, no wheezing or crackles. ABDOMEN: Soft, nontender, nondistended, normoactive bowel sounds. No palpable organomegaly. MUSCULOSKELETAL: No joint swelling or deformity. EXTREMITIES: No cyanosis, clubbing, or pedal edema. NEUROLOGICAL: Gross neurological examination did not reveal any focal deficits. SKIN: No rashes. Assessment and plan -Atrial fibrillation with rapid ventricular rate: Cardizem was discontinued patient was started back on metoprolol patient's EF is extremely low. Patient is on Eliquis 2.5 twice a day which will be continued Hypertension R failure chronic systolic dysfunction with acute exacerbation patient was started on IV Lasix at this time -Acute renal failure hold off on lisinopril temporarily secondary to prerenal azotemia from heart failure expected to improve with IV Lasix extending- hypervolemic hyponatremia -Elevated TSH: We'll obtain T4 with that's normal outpatient repeat TSH can be sick euthyroid syndrome DVT prophylaxis: On Eliquis Past Medical History Past Medical History: Atrial Fibrillation, CVA/TIA, Diabetes Mellitus, GERD/Reflux, Hyperlipidemia, Hypertension, Myocardial Infarction ([place]), Musculo skeletal Disorder, Osteoarthritis (OA), Prostate Disorder, Renal Disease Additional Past Medical History / Comment(s): Pt recently admitted to [facility] on 11/11/18 with new onset Afib/RVR, acute CHF, acute kidney injury possible CKD stage III. Other hx: IDDM type II, TIAs, increased weakness, problems, BPH, low back pain, SEE DR ROLDAN'S HISTORY AND PHYSICAL FOR CARDIAC HISTORY Last Myocardial Infarction Date:: 01/17/14 History of Any Multi-Drug Resistant Organisms: None Reported Past Surgical History: AICD, Heart Catheterization With Stent, Pacemaker Additional Past Surgical History / Comment(s): Hx CARDIAC-4 stents, LASER - BOTH EYES , CATARACT SURGERY - BOTH EYES. pacemaker & defibrillator September 2019 Past Anesthesia/Blood Transfusion Reactions: No Reported Reaction Date of Last Stent Placement:: 2013 Type of Cardiac Device: AICD Device Placement Date:: 2019 Past Psychological History: No Psychological Hx Reported Additional Psychological History / Comment(s): Pt resides with his spouse. He is independent. Smoking Status: Never smoker Past Alcohol Use History: None Reported Past Drug Use History: None Reported - Past Family History Mother Family Medical History: Coronary Artery Disease (CAD), Diabetes Mellitus Additional Family Medical History / Comment(s): Mother at the age of 72 yrs and pt thinks possible due to [place] Father Family Medical History: Cancer Additional Family Medical History / Comment(s): Father of lung cancer at the age of 66yrs. Sister(s) Family Medical History: Congestive Heart Failure (CHF), Diabetes Mellitus Brother(s) Family Medical History: Myocardial Infarction ([place]) Daughter(s) Family Medical History: No Reported History Medications and Allergies Home Medications Medication Instructions Recorded Confirmed Type Atorvastatin [Lipitor] 40 mg PO HS 11/11/18 09/07/20 History lisinopriL [Zestril] 5 mg PO DAILY #0 11/24/18 09/07/20 Rx Insulin Glargine,Hum.rec.anlog 16 unit SQ DAILY 09/23/19 09/07/20 History [Lantus Solostar] Potassium Chloride [Klor-Con 10] 20 meq PO BID 09/23/19 09/07/20 History Tamsulosin [Flomax] 0.4 mg PO DAILY 09/23/19 09/07/20 History metOLazone [Zaroxolyn] 2.5 mg PO DAILY 09/23/19 09/07/20 History Metoprolol Succinate (ER) [Toprol 50 mg PO DAILY #180 tab 09/29/19 09/07/20 Rx XL] Furosemide [Lasix] 60 mg PO BID 09/07/20 09/07/20 History Insulin Lispro 6 units SQ W/BRKFST 09/07/20 09/07/20 History Insulin Lispro 6 units SQ W/LUNCH 09/07/20 09/07/20 History Insulin Lispro 8 units SQ W/SUPPER 09/07/20 09/07/20 History Insulin Lispro See Protocol SQ AC-TID PRN 09/07/20 09/07/20 History Apixaban [Eliquis] 2.5 mg PO BID 30 Days #60 tablet 09/08/20 Rx Allergies Allergy/AdvReac Type Severity Reaction Status Date / Time metformin Allergy Unknown Verified 09/07/20 21:28 Physical Exam Vitals: Vital Signs Temp Pulse Pulse Resp BP BP Pulse Ox 09/08/20 11:08 109 H 16 121/72 96 09/08/20 07:50 98.1 F 109 H 16 100/53 96 09/08/20 07:18 98.0 F 101 H 20 95/70 100 09/08/20 06:00 92 16 104/82 98 09/08/20 04:00 71 18 90/57 99 09/08/20 02:39 109 H 17 86/59 99 09/08/20 00:00 97 20 95/73 98 09/07/20 23:33 98.1 F 105 H 20 103/81 97 09/07/20 23:00 105 H 20 99/82 98 09/07/20 22:30 102 H 20 118/81 97 09/07/20 22:00 103 H 20 103/66 97 09/07/20 21:40 107 H 20 98/75 97 09/07/20 21:10 118 H 20 95/72 97 09/07/20 20:50 131 H 20 115/96 98 09/07/20 20:40 124 H 20 97/86 98 09/07/20 20:30 130 H 20 104/65 98 09/07/20 20:13 146 H 20 102/77 98 09/07/20 19:26 97.7 F 144 H 20 143/87 99 Intake and Output 09/07/20 09/08/20 09/08/20 22:59 06:59 14:59 Intake Total 120 Output Total 425 Balance -305 Intake: Oral 120 Output: Urine 425 Other: Voiding Method Urinal Weight 86.183 kg 86.183 kg Results CBC & Chem 7: 09/08/20 05:15 09/07/20 19:50 Labs: Abnormal Lab Results - Last 24 Hours (Table) 09/07/20 09/07/20 09/07/20 Range/Units 19:50 19:50 19:50 RBC (4.30-5.90) m/uL Hgb (13.0-17.5) gm/dL Hct (39.0-53.0) % PT 12.1 H (9.0-12.0) sec INR 1.2 H (<1.2) APTT (22.0-30.0) sec Sodium 134 L (137-145) mmol/L Carbon Dioxide 18 L (22-30) mmol/L BUN 61 H (9-20) mg/dL Creatinine 2.72 H (0.66-1.25) mg/dL Glucose 149 H (74-99) mg/dL POC Glucose (mg/dL) (75-99) mg/dL Magnesium 1.5 L (1.6-2.3) mg/dL Troponin I 0.421 H* (0.000-0.034) ng/mL TSH 4.750 H (0.465-4.680) mIU/L 09/07/20 09/08/20 09/08/20 Range/Units 23:50 02:41 05:15 RBC (4.30-5.90) m/uL Hgb (13.0-17.5) gm/dL Hct (39.0-53.0) % PT 12.3 H (9.0-12.0) sec INR 1.2 H (<1.2) APTT 44.4 H (22.0-30.0) sec Sodium (137-145) mmol/L Carbon Dioxide (22-30) mmol/L BUN (9-20) mg/dL Creatinine (0.66-1.25) mg/dL Glucose (74-99) mg/dL POC Glucose (mg/dL) (75-99) mg/dL Magnesium (1.6-2.3) mg/dL Troponin I 0.589 H* 0.628 H* (0.000-0.034) ng/mL TSH (0.465-4.680) mIU/L 09/08/20 09/08/20 09/08/20 Range/Units 05:15 08:03 11:02 RBC 3.92 L (4.30-5.90) m/uL Hgb 12.2 L (13.0-17.5) gm/dL Hct 36.4 L (39.0-53.0) % PT (9.0-12.0) sec INR (<1.2) APTT (22.0-30.0) sec Sodium (137-145) mmol/L Carbon Dioxide (22-30) mmol/L BUN (9-20) mg/dL Creatinine (0.66-1.25) mg/dL Glucose (74-99) mg/dL POC Glucose (mg/dL) 154 H 212 H (75-99) mg/dL Magnesium (1.6-2.3) mg/dL Troponin I (0.000-0.034) ng/mL TSH (0.465-4.680) mIU/L Thrombosis Risk Factor Assmnt - Choose All That Apply Any of the Below Risk Factors Present?: No Other Risk Factors: Yes Each Risk Factor Represents 3 Points: Age 75 years or older Other congenital or acquired thrombophilia - If yes, enter type in comment: No Thrombosis Risk Factor Assessment Total Risk Factor Score: 3 Thrombosis Risk Factor Assessment Level: Moderate Risk
--- NOTE | 2020-09-08 13:30 | P.CRDCN ---
History of Present Illness History of present illness: HISTORY OF PRESENTING ILLNESS This is a pleasant 80-year-old male past medical history significant for coronary artery disease s/p PCI LAD in the setting of acute STEMI, chronic persistent atrial fibrillation, dyslipidemia, hypertension, type 2 diabetes, ischemic cardiomyopathy status post biventricular ICD placement in 09/2019. He follows in the office with Dr. Barlow. We have been asked to see in consultation for atrial fibrillation with rapid ventricular response and elevated troponin. Patient presents emergency department with chief complaint of shortness of breath. He states he's been short of breath for very long time over 6 months. Yesterday she was called by the device clinic, he was told his heart rate was being fast. He had complaints of shortness of breath and chest tightness. He was told to go to the emergency department. He was in atrial fibrillation with uncontrolled rates HR 110-171. Patient states 3 weeks ago he stopped taking all his medications besides his Lasix, metolazone and potassium. He states he is unable to afford his Eliquis and that's why he stopped taking that medication. He states that he was taking almost 20 medications and thought that he was taking too many medications. Patient does endorse intermittent chest tightness. It is nonradiating, nonexertional. He states his shortness of breath has been progressively worsening since he had his heart attack in 2013. He states he used to be able to walk 5 miles without difficulty but now can only walk about 5 minutes or 100 feet and feels fatigued and shortness of breath. He denies history of stroke. He denies symptoms of lightheadedness, dizziness, syncope. He denies tobacco use or alcohol use. DIAGNOSTICS EKG reveals atrial fibrillation with rapid ventricular response, heart rate in the 150s. Telemetry tracings indicate patient in atrial fibrillation heart rate in the 80s to 120s. Chest xray heart is enlarged, reveals pulmonary congestion Cardiac catheterization history includes- patient presented with an acute STEMI in 12/2013 underwent PCI to the LAD Holter monitor 11/2018 reveals atrial fibrillation with frequent PVCs. Echocardiogram 2018 revealed an EF of less than 20%, LA severely dilated, severe mitral regurgitation, mild tricuspid regurgitation and mild to moderate pulmonary hypertension Most recent stress test 07/2019 Lexiscan without any evidence of reversible ischemia. Laboratory reviewed, troponin trend 0.4, 0.5, 0.6. INR 1.2, sodium 134, potassi um 4.2, BUN 61, serum creatinine 2.72, magnesium 1.5, TSH 4.7 REVIEW OF SYSTEMS At the time of my exam: CONSTITUTIONAL: Denies fever or chills. CARDIOVASCULAR: Positive chest pain, positive shortness of breath Denies orthopnea, PND or palpitations. RESPIRATORY: Denies cough. GASTROINTESTINAL: Denies abdominal pain, diarrhea, constipation, nausea or vomiting. MUSCULOSKELETAL: Denies myalgias. NEUROLOGIC: Denies numbness, tingling, headacbe or weakness. ENDOCRINE: Denies fatigue, weight change, polydipsia or polyurina. GENITOURINARY: Denies burning, hematuria or urgency with micturation. HEMATOLOGIC: History of anemia PHYSICAL EXAMINATION CONSTITUTIONAL: No apparent distress. HEENT: Head is normocephalic. Pupils are equal, round. Sclerae anicteric. Mucous membranes of the mouth are moist. No JVD. No carotid bruit. CHEST EXAMINATION: Lungs are clear to auscultation. No chest wall tenderness is noted on palpation or with deep breathing. HEART EXAMINATION: Irregular rate and rhythm. S1, S2 heard. Systolic murmur noted at apex ABDOMEN: Soft, nontender. Positive bowel sounds. EXTREMITIES: 2+ peripheral pulses, no lower extremity edema and no calf tenderness. SKIN: intact NEUROLOGIC EXAMINATION: Patient is awake, alert and oriented x3. ASSESSMENT Chronic persistent atrial fibrillation with rapid ventricular response -[id number] score 6 Shortness of breath Acute on chronic systolic heart failure Chest pain, atypical Elevated troponin - most likely related to patient's congestive heart failure and atrial fibrillation with RVR Coronary artery disease status post PCI to LAD Dyslipidemia Hypertension Type 2 diabetes Ischemic cardiomyopathy status post biventricular ICD 09/2019 Non-compliant with medication Acute on chronic kidney disease PLAN -Echo obtained and revealed EF of less than 20%, moderate mitral regurgitation, mild tricuspid regurgitation, mild pulmonary hypertension with an RVSP of 44 mmHg -Will continue IV diuretics IV Lasix 40 mg every 8 hours -Continue aspirin 81mg daily, statin -Will continue anticoagulation with Eliquis - will consult case management for assistance. Patient's copay used to be $40, but increased to $120, we will check coverage for Xarelto at this time -Continue metoprolol 50 milligrams twice a day -Monitor renal function and electrolytes -Further recommendations based on clinical course Nurse Practitioner note has been reviewed, I agree with a documented findings and plan of care. Patient was seen and examined. Past Medical History Past Medical History: Atrial Fibrillation, CVA/TIA, Diabetes Mellitus, GERD/Reflux, Hyperlipidemia, Hypertension, Myocardial Infarction (LA), Musculoskeletal Disorder, Osteoarthritis (OA), Prostate Disorder, Renal Disease Additional Past Medical History / Comment(s): Pt recently admitted to [facility] on 11/11/18 with new onset Afib/RVR, acute CHF, acute kidney injury possible CKD stage III. Other hx: IDDM type II, TIAs, increased weakness, problems, BPH, low back pain, SEE DR ROLDAN'S HISTORY AND PHYSICAL FOR CARDIAC HISTORY Last Myocardial Infarction Date:: 01/17/14 History of Any Multi-Drug Resistant Organisms: None Reported Past Surgical History: Heart Catheterization With Stent Additional Past Surgical History / Comment(s): Hx CARDIAC-4 stents, LASER - BOTH EYES , CATARACT SURGERY - BOTH EYES Past Anesthesia/Blood Transfusion Reactions: No Reported Reaction Date of Last Stent Placement:: 2013 Past Psychological History: No Psychological Hx Reported Smoking Status: Never smoker Past Alcohol Use History: None Reported Past Drug Use History: None Reported - Past Family History Mother Family Medical History: Coronary Artery Disease (CAD), Diabetes Mellitus Additional Family Medical History / Comment(s): Mother at the age of 72 yrs and pt thinks possible due to LA Father Family Medical History: Cancer Additional Family Medical History / Comment(s): Father of lung cancer at the age of 66yrs. Sister(s) Family Medical History: Congestive Heart Failure (CHF), Diabetes Mellitus Brother(s) Family Medical History: Myocardial Infarction (LA) Daughter(s) Family Medical History: No Reported History Medications and Allergies Home Medications Medication Instructions Recorded Confirmed Type Atorvastatin [Lipitor] 40 mg PO HS 11/11/18 09/07/20 History lisinopriL [Zestril] 5 mg PO DAILY #0 11/24/18 09/07/20 Rx Insulin Glargine,Hum.rec.anlog 16 unit SQ DAILY 09/23/19 09/07/20 History [Lantus Solostar] Potassium Chloride [Klor-Con 10] 20 meq PO BID 09/23/19 09/07/20 History Tamsulosin [Flomax] 0.4 mg PO DAILY 09/23/19 09/07/20 History metOLazone [Zaroxolyn] 2.5 mg PO DAILY 09/23/19 09/07/20 History Metoprolol Succinate (ER) [Toprol 50 mg PO DAILY #180 tab 09/29/19 09/07/20 Rx XL] Furosemide [Lasix] 60 mg PO BID 09/07/20 09/07/20 History Insulin Lispro 6 units SQ W/BRKFST 09/07/20 09/07/20 History Insulin Lispro 6 units SQ W/LUNCH 09/07/20 09/07/20 History Insulin Lispro 8 units SQ W/SUPPER 09/07/20 09/07/20 History Insulin Lispro See Protocol SQ AC-TID PRN 09/07/20 09/07/20 History Rivaroxaban [Xarelto] 15 mg PO DAILY 30 Days #30 tab 09/08/20 Rx Allergies Allergy/AdvReac Type Severity Reaction Status Date / Time metformin Allergy Unknown Verified 09/07/20 21:28 Physical Exam Vitals: Vital Signs Temp Pulse Pulse Resp BP BP Pulse Ox 09/08/20 07:50 98.1 F 104 H 18 100/53 96 09/08/20 07:18 98.0 F 101 H 20 95/70 100 09/08/20 06:00 92 16 104/82 98 09/08/20 04:00 71 18 90/57 99 09/08/20 02:39 109 H 17 86/59 99 09/08/20 00:00 97 20 95/73 98 09/07/20 23:33 98.1 F 105 H 20 103/81 97 09/07/20 23:00 105 H 20 99/82 98 09/07/20 22:30 102 H 20 118/81 97 09/07/20 22:00 103 H 20 103/66 97 09/07/20 21:40 107 H 20 98/75 97 09/07/20 21:10 118 H 20 95/72 97 09/07/20 20:50 131 H 20 115/96 98 09/07/20 20:40 124 H 20 97/86 98 09/07/20 20:30 130 H 20 104/65 98 09/07/20 20:13 146 H 20 102/77 98 09/07/20 19:26 97.7 F 144 H 20 143/87 99 Intake and Output 09/07/20 09/08/20 09/08/20 22:59 06:59 14:59 Intake Total 120 Balance 120 Intake: Oral 120 Other: Weight 86.183 kg Results 09/08/20 05:15 09/07/20 19:50 Cardiac Enzymes 09/07/20 09/07/20 09/07/20 Range/Units 19:50 19:50 23:50 AST 29 (17-59) U/L Troponin I 0.421 H* 0.589 H* (0.000-0.034) ng/mL 09/08/20 Range/Units 02:41 AST (17-59) U/L Troponin I 0.628 H* (0.000-0.034) ng/mL Coagulation 09/07/20 09/08/20 Range/Units 19:50 05:15 PT 12.1 H 12.3 H (9.0-12.0) sec APTT 24.4 44.4 H (22.0-30.0) sec CBC 09/07/20 09/08/20 Range/Units 19:50 05:15 WBC 8.4 8.3 (3.8-10.6) k/uL RBC 4.36 3.92 L (4.30-5.90) m/uL Hgb 13.2 12.2 L (13.0-17.5) gm/dL Hct 40.4 36.4 L (39.0-53.0) % Plt Count 189 153 (150-450) k/uL Comprehensive Metabolic Panel 09/07/20 Range/Units 19:50 Sodium 134 L (137-145) mmol/L Potassium 4.2 (3.5-5.1) mmol/L Chloride 102 (98-107) mmol/L Carbon Dioxide 18 L (22-30) mmol/L BUN 61 H (9-20) mg/dL Creatinine 2.72 H (0.66-1.25) mg/dL Glucose 149 H (74-99) mg/dL Calcium 9.0 (8.4-10.2) mg/dL AST 29 (17-59) U/L ALT 23 (4-49) U/L Alkaline Phosphatase 91 (38-126) U/L Total Protein 6.6 (6.3-8.2) g/dL Albumin 3.9 (3.5-5.0) g/dL Current Medications Generic Name Dose Route Start Last Admin Trade Name Freq PRN Reason Stop Dose Admin Acetaminophen 650 mg 09/07/20 23:04 Acetaminophen Tab 325 Mg Tab PO Q4HR PRN Pain Aspirin 325 mg 09/08/20 09:00 Aspirin 325 Mg Tab PO DAILY [facility] Atorvastatin Calcium 40 mg 09/08/20 21:00 Atorvastatin 40 Mg Tab PO HS [facility] Furosemide 60 mg 09/08/20 09:00 Furosemide 20 Mg Tab PO BID [facility] Heparin Sodium (Porcine) 0 unit 09/07/20 22:56 Heparin Sodium 1,000 Un/Ml (10ml Vl) IV PER PROTOCOL PRN Low PTT Protocol Diltiazem HCl 125 mg/ Sodium 125 mls @ 5 mls/hr 09/07/20 20:15 09/07/20 20:15 Chloride IV 5 mg/hr .Q24H NANCIE 5 mls/hr Administration Protocol 5 MG/HR Heparin Sodium/Sodium Chloride 250 mls @ 9.997 mls/hr 09/07/20 23:00 09/07/20 23:31 25,000 unit/ Sodium Chloride IV 11.6 units/kg/hr .Q24H NANCIE 9.997 mls/hr Administration Protocol 11.6 UNITS/KG/HR Insulin Aspart 0 unit 09/08/20 07:30 09/08/20 08:02 Insulin Aspart (Novolog) 100 Unit/Ml Vial SQ Not Given ACHS [facility] Protocol Insulin Detemir 16 unit 09/08/20 09:00 Insulin Detemir (Levemir) 100 Unit/Ml Syr SQ DAILY [facility] Lisinopril 5 mg 09/08/20 09:00 Lisinopril 5 Mg Tab PO DAILY [facility] Metolazone 2.5 mg 09/08/20 09:00 Metolazone 2.5 Mg Tab PO DAILY [facility] Metoprolol Succinate 50 mg 09/08/20 09:00 Metoprolol Succinate (Er) 50 Mg Tab.Er.24h PO DAILY [facility] Nitroglycerin 0.4 mg 09/07/20 23:04 Nitroglycerin Sl Tabs 0.4 Mg Tab SUBLINGUAL Q5M PRN Chest Pain Potassium Chloride 20 meq 09/08/20 09:00 Potassium Chloride Er 20 Meq Tab.Er PO BID [facility] Tamsulosin HCl 0.4 mg 09/08/20 09:00 Tamsulosin 0.4 Mg Cap.Er.24h PO DAILY [facility] Intake and Output 09/07/20 09/08/20 09/08/20 22:59 06:59 14:59 Intake Total 120 Balance 120 Intake: Oral 120 Other: Weight 86.183 kg 09/08/20 05:15 09/07/20 19:50
[2020-09-08 16:24] LABS: Glucose,Whole Blood 137 mg/dL (75-99)
[2020-09-08] MEDS: ATORVASTATIN 40 MG TAB PO SCH (19:53)
[2020-09-08 20:33] LABS: Glucose,Whole Blood 200 mg/dL (75-99)
[2020-09-08] MEDS ORDERED: APIXABAN 2.5 MG TABLET PO SCH (21:00)
[2020-09-08 23:04] LABS: Glucose,Whole Blood 149 mg/dL (75-99)
[2020-09-09 06:16] LABS: Glucose,Whole Blood 124 mg/dL (75-99)
[2020-09-09] MEDS: INSULIN ASPART (NovoLOG) 100 UNIT/ML VIAL SQ SCH ×4 (06:16→20:25)
[2020-09-09] MEDS ORDERED: ASPIRIN 81 MG PO SCH (09:00)
[2020-09-09] MEDS: POTASSIUM CHLORIDE ER 20 MEQ TAB.ER PO SCH ×2 (09:15→20:26)
[2020-09-09] MEDS: TAMSULOSIN 0.4 MG CAP.ER.24H PO SCH (09:15)
[2020-09-09] MEDS: ASPIRIN 81 MG PO SCH (09:15)
[2020-09-09] MEDS: APIXABAN 2.5 MG TABLET PO SCH ×2 (09:15→20:27)
[2020-09-09] MEDS: INSULIN DETEMIR (LEVEMIR) 100 UNIT/ML SYR SQ SCH (09:16)
[2020-09-09] MEDS: METOPROLOL SUCCINATE (ER) 50 MG TAB.ER.24H PO SCH ×2 (09:17→20:26)
[2020-09-09 09:59] LABS: Calcium 8.3 mg/dL (8.4-10.2); Potassium 3.7 mmol/L (3.5-5.1)
[2020-09-09 11:42] LABS: Glucose,Whole Blood 151 mg/dL (75-99)
--- NOTE | 2020-09-09 12:32 | P.PN ---
Progress Note - Text Working with case management, Patient no longer has coverage for Eliquis, originally cost was $40 and now it is $121. Xarelto coverage checked and it is $122. Patient unable to afford these medications. Patient with history of medication non-compliance and it would be difficult to treat with coumadin at this time. We are looking into a free month supply of Eliquis for the patient prior to discharge. If supply available, will give patient free month supply for Eliquis until he follows up in the office with Dr. Barlow and further discussion regarding anticoagulation will be discussed.
--- NOTE | 2020-09-09 13:06 | PN ---
PROGRESS NOTE Mr. Ng is an 80-year-old male with known history of chronic persistent atrial fibrillation, history of ischemic cardiomyopathy status post Bi V placement, history of percutaneous revascularization who presented with atrial fibrillation, rapid ventricular response as well as dyspnea on exertion and evidence of congestive heart failure. He is feeling slightly better today. He denies any chest pain. He denies any dizziness. He denies any palpitations. He continues to be at this time on Eliquis 2.5 mg twice a day, aspirin once a day, Lipitor 40 mg daily, furosemide 60 mg twice a day, metoprolol succinate 50 mg twice a day and Flomax. PHYSICAL EXAMINATION: Blood pressure running in the 100s with a heart rate in the 80s. LUNGS: Clear. HEART: Irregular, irregular S1, S2. No S3 with a systolic murmur. ABDOMEN: Soft, nontender. EXTREMITIES: No significant edema. LAB DATA: His echocardiogram images revealed an ejection fraction of less than 20%. His BUN and creatinine 64 and 2.48, which is slightly better than yesterday. His potassium is 3.7. IMPRESSION: 1. Atrial fibrillation with rapid ventricular response, under better control at this time. 2. Severe ischemic cardiomyopathy. 3. Status post stenting of the LAD. 4. Chronic kidney disease. 5. Hyperlipidemia. RECOMMENDATION: I will continue present therapy, follow his renal function, increase his activity. If he remains stable and his heart rate is stable, I would expect he should be able to be discharged home tomorrow. MMODL / ALYSSAN: [id number] /
--- NOTE | 2020-09-09 16:01 | P.PN ---
Subjective 80-year-old pleasant male came in with compensative short of breath and orthopnea as well as palpitation patient is found to be in atrial fibrillation was also not failure. Patient has ejection fraction of 20% repeat echo cardiac exam showed EF of around 20%. Patient the is getting tired because of which he believed that his medications doing it and stop some of his medications which includes beta yahir has been taking his diuretics. Patient denied any fever chills chest x-ray showed some pulmonary edema. Patient baseline creatinine is around 1.7 present creatinine is 2.7 patient is hyponatremic mildly elevated troponins without any chest pain. Cardiology was consulted patient was started on IV Lasix. 09/09/2020 Patient is bit hypotensive because of which patient did not receive IV Lasix today patient that doesn't appear to be in heart failure exacerbation his a serum creatinine did improve to 2.48. Patient is still feeling tired but looks much better today. Unfortunately patient doesn't have coverage to [employer] anymore because of which patient need to be on Coumadin unsure patient will be competent with Coumadin. Same thing will be discussed with patient. Constitutional: Mentioned in the interval history Cardio vascular: denied any chest pain, palpitations Gastrointestinal denied any nausea vomiting Pulmonary: Denied any shortness of breath cough Neurologic denied any new focal deficits All inpatient medications were reviewed and appropriate changes in these medications as dictated in the interval history and assessment and plan. PHYSICAL EXAMINATION: GENERAL: The patient is alert and oriented x3, not in any acute distress. Well developed, well nourished. HEENT: Pupils are round and equally reacting to light. EOMI. No scleral icterus. No conjunctival pallor. Normocephalic, atraumatic. No pharyngeal erythema. No thyromegaly. CARDIOVASCULAR: S1 and S2 present. No murmurs, rubs, or gallops. DVT improved PULMONARY: Chest is clear to auscultation, no wheezing or crackles. ABDOMEN: Soft, nontender, nondistended, normoactive bowel sounds. No palpable organomegaly. MUSCULOSKELETAL: No joint swelling or deformity. EXTREMITIES: No cyanosis, clubbing, or pedal edema. NEUROLOGICAL: Gross neurological examination did not reveal any focal deficits. SKIN: No rashes. Assessment and plan -Atrial fibrillation with rapid ventricular rate: Due to noncompliance with medications and patient is presently rate controlled on oral metoprolol. patient's EF is extremely low. Patient, patient doesn't have any coverage for Eliquis Hypertension Congestive heart failure chronic systolic dysfunction with acute exacerbation, patient was transitioned to oral Lasix. -Acute renal failure hold off on lisinopril temporarily secondary to prerenal azotemia from heart failure expected to improve with IV Lasix extending -hypervolemic hyponatremia -Elevated TSH: We'll obtain T4 with that's normal outpatient repeat TSH can be sick euthyroid syndrome DVT prophylaxis: On Eliquis Objective - Vital Signs Vital signs: Vital Signs Temp 97.4 F L 09/09/20 12:22 Pulse 101 H 09/09/20 12:22 Resp 20 09/09/20 12:22 BP 90/64 09/09/20 12:22 Pulse Ox 95 09/09/20 12:22 Intake & Output 09/08/20 09/09/20 09/09/20 18:59 06:59 18:59 Intake Total 120 360 Output Total 725 1350 Balance -605 -1350 360 Weight 86.183 kg 89.9 kg Intake: Oral 120 360 Output: Urine 725 1350 Other: Voiding Method Urinal Urinal # Voids 3 - Labs CBC & Chem 7: 09/08/20 05:15 09/09/20 08:44 Labs: Abnormal Lab Results - Last 24 Hours (Table) 09/08/20 09/08/20 09/08/20 Range/Units 16:16 20:31 23:03 Sodium (137-145) mmol/L BUN (9-20) mg/dL Creatinine (0.66-1.25) mg/dL Glucose (74-99) mg/dL POC Glucose (mg/dL) 137 H 200 H 149 H (75-99) mg/dL Calcium (8.4-10.2) mg/dL 09/09/20 09/09/20 09/09/20 Range/Units 06:15 08:44 11:16 Sodium 136 L (137-145) mmol/L BUN 64 H (9-20) mg/dL Creatinine 2.48 H (0.66-1.25) mg/dL Glucose 159 H (74-99) mg/dL POC Glucose (mg/dL) 124 H 151 H (75-99) mg/dL Calcium 8.3 L (8.4-10.2) mg/dL
[2020-09-09 16:17] LABS: Glucose,Whole Blood 252 mg/dL (75-99)
[2020-09-09] MEDS: FUROSEMIDE 20 MG TAB PO SCH (17:06)
[2020-09-09] MEDS: FUROSEMIDE 10 MG/ML 4 ML VIAL IV SCH (18:42)
[2020-09-09 20:26] LABS: Glucose,Whole Blood 189 mg/dL (75-99)
[2020-09-09] MEDS: ATORVASTATIN 40 MG TAB PO SCH (20:26)
[2020-09-10 06:14] LABS: Glucose,Whole Blood 114 mg/dL (75-99)
[2020-09-10] MEDS: INSULIN ASPART (NovoLOG) 100 UNIT/ML VIAL SQ SCH ×2 (06:22→11:55)
[2020-09-10 08:23] VITALS: RESP 16; TEMP 98
[2020-09-10] MEDS: FUROSEMIDE 20 MG TAB PO SCH (08:24)
[2020-09-10 08:47] LABS: Calcium 8.2 mg/dL (8.4-10.2); Potassium 3.8 mmol/L (3.5-5.1)
[2020-09-10] MEDS: METOPROLOL SUCCINATE (ER) 50 MG TAB.ER.24H PO SCH (09:15)
[2020-09-10] MEDS: INSULIN DETEMIR (LEVEMIR) 100 UNIT/ML SYR SQ SCH (09:17)
[2020-09-10] MEDS: ASPIRIN 81 MG PO SCH (09:17)
[2020-09-10] MEDS: POTASSIUM CHLORIDE ER 20 MEQ TAB.ER PO SCH (09:17)
[2020-09-10] MEDS: TAMSULOSIN 0.4 MG CAP.ER.24H PO SCH (09:18)
[2020-09-10] MEDS: APIXABAN 2.5 MG TABLET PO SCH (09:18)
[2020-09-10 11:30] VITALS: BP 95/61; PULSE 103
[2020-09-10 11:45] LABS: Glucose,Whole Blood 133 mg/dL (75-99)
--- NOTE | 2020-09-10 14:48 | P.PN ---
Subjective Progress Note Date: 09/10/20 This is a pleasant 80-year-old gentleman with a known history of chronic persistent atrial fibrillation, ischemic cardiomyopathy status post by the implantation, history of PCI. Presented with rapid ventricular response with atrial fibrillation as well as dyspnea on exertion and evidence of congestive heart failure. He apparently been complaining of persistent fatigue and stopped taking his medications. He did not notice any improvement in his fatigue however had elevated heart rate and worsening shortness of breath. Echocardiogram with Doppler study showed an ejection fraction of less than 20%. He is currently on Lasix 60 mg by mouth twice a day, metoprolol succinate 50 mg by mouth twice a day, Flomax, Eliquis 0.5 mg by mouth twice a day and aspirin once a day. There is an issue with the cost of his anticoagulation. Apparently previously costs about $40 a month and recently went up to $121 a month. He is concerned about this cost in the long-term. He is also not felt to be a very go od candidate for Coumadin due to his history of poor compliance. Labs this morning show sodium 136, BUN to 67 and creatinine 2.62. Upon examination the patient is sitting up in a chair. He is complaining of feeling tired. Complains of dyspnea on exertion which seems stable. He denies any orthopnea or PND. Denies any edema. He had no chest discomfort and denies any complaints of palpitations, dizziness or lightheadedness. Objective - Vital Signs Vital signs: Vital Signs Temp 98 F 09/10/20 11:30 Pulse 103 H 09/10/20 11:30 Resp 16 09/10/20 11:30 BP 95/61 09/10/20 11:30 Pulse Ox 98 09/10/20 11:30 Intake & Output 09/09/20 09/10/20 09/10/20 18:59 06:59 18:59 Intake Total 480 720 Balance 480 720 Weight 89.1 kg Intake: Oral 480 720 Other: Voiding Method Urinal Urinal # Voids 3 1 - Exam PHYSICAL EXAMINATION: HEENT: Head is atraumatic, normocephalic. Pupils equal, round. Neck is supple. There is no elevated jugular venous pressure. HEART EXAMINATION: Heart sounds irregular rate and rhythm, S1 and S2 with a systolic murmur. CHEST EXAMINATION: Lungs are clear to auscultation. No chest wall tenderness is noted on palpation or with deep breathing. ABDOMEN: Soft, nontender. Bowel sounds are heard. No organomegaly noted. EXTREMITIES: 2+ peripheral pulses with evidence of mild peripheral edema and no calf tenderness noted. NEUROLOGIC patient is awake, alert and oriented x3. . - Labs CBC & Chem 7: 09/08/20 05:15 09/10/20 07:14 Labs: Abnormal Lab Results - Last 24 Hours (Table) 09/09/20 09/09/20 09/10/20 Range/Units 16:16 20:24 06:13 Sodium (137-145) mmol/L BUN (9-20) mg/dL Creatinine (0.66-1.25) mg/dL POC Glucose (mg/dL) 252 H 189 H 114 H (75-99) mg/dL Calcium (8.4-10.2) mg/dL 09/10/20 09/10/20 Range/Units 07:14 11:43 Sodium 136 L (137-145) mmol/L BUN 67 H (9-20) mg/dL Creatinine 2.62 H (0.66-1.25) mg/dL POC Glucose (mg/dL) 133 H (75-99) mg/dL Calcium 8.2 L (8.4-10.2) mg/dL Assessment and Plan Assessment: 1 atrial fibrillation, chronic persistent, with rapid ventricular response, heart rates better controlled at this time #2 severe ischemic cardiomyopathy status post bi-V ICD #3 status post PCI of the LAD #4 chronic kidney disease #5 hyperlipidemia #6 noncompliance Plan: From cardiology's perspective we will decrease Lasix to 40 mg BID. He may be discharged home from our stand point. At this time the patient is being provided samples of Eliquis. We will keep him on Eliquis 2.5 milligrams twice a day for now. He will discuss this further at his follow-up in the office with Dr. Barlow. [employer]OR[employer] note has been reviewed, I agree with a documented findings and plan of care. Patient was seen and examined.
--- NOTE | 2020-09-10 15:03 | P.DS ---
Providers Date of admission: 09/07/20 23:04 Attending physician: Mackenzie Arana Consults: 09/07/20 23:04 Consult Physician Urgent Consulting Provider: Yolis Cummings Consult Reason/Comments: a-fib, elevated trop Do you want consulting provider notified?: Yes Primary care physician: Beulah [facility] Course: 80-year-old pleasant male came in with compensative short of breath and orthopnea as well as palpitation patient is found to be in atrial fibrillation was also not failure. Patient has ejection fraction of 20% repeat echo cardiac exam showed EF of around 20%. Patient the is getting tired because of which he believed that his medications doing it and stop some of his medications which includes beta yahir has been taking his diuretics. Patient denied any fever chills chest x-ray showed some pulmonary edema. Patient baseline creatinine is around 1.7 present creatinine is 2.7 patient is hyponatremic mildly elevated troponins without any chest pain. Cardiology was consulted patient was started on IV Lasix. 09/09/2020 Patient is bit hypotensive because of which patient did not receive IV Lasix today patient that doesn't appear to be in heart failure exacerbation his a seru m creatinine did improve to 2.48. Patient is still feeling tired but looks much better today. Unfortunately patient doesn't have coverage to Eliquis anymore because of which patient need to be on Coumadin unsure patient will be competent with Coumadin. Same thing will be discussed with patient. 09/10/2020 Patient is clinically doing well and wanted to go home. Patient is a will be clinically. Patient renal function has worsened but fairly stable went up from 2.4-2.6. Patient didn't receive his Lasix yesterday evening in today because of her low blood pressures which are not unexpected because of his low ejection fraction of 20-25%. Patient was given the Eliquis samples and cleared for discharge from cardiology perspective patient will be discharged today. Patient was noncompliant with the medications which led to A. fib with rapid ventricular rate and heart failure exacerbation. Dose of Lasix is being cut down to 40 mg twice a day, metolazone is being discontinued, patient's pre-meal insulin is being this can urine as well because of hypoglycemic episodes. PHYSICAL EXAMINATION: GENERAL: The patient is alert and oriented x3, not in any acute distress. Well developed, well nourished. HEENT: Pupils are round and equally reacting to light. EOMI. No scleral icterus. No conjunctival pallor. Normocephalic, atraumatic. No pharyngeal erythema. No t hyromegaly. CARDIOVASCULAR: S1 and S2 present. No murmurs, rubs, or gallops. DVT improved PULMONARY: Chest is clear to auscultation, no wheezing or crackles. ABDOMEN: Soft, nontender, nondistended, normoactive bowel sounds. No palpable organomegaly. MUSCULOSKELETAL: No joint swelling or deformity. EXTREMITIES: No cyanosis, clubbing, or pedal edema. NEUROLOGICAL: Gross neurological examination did not reveal any focal deficits. SKIN: No rashes. Assessment and plan -Atrial fibrillation with rapid ventricular rate: Due to noncompliance with medications and patient is presently rate controlled on oral metoprolol. patient's EF is extremely low. Patient was given samples for Eliquis and is being discharged Hypertension Congestive heart failure chronic systolic dysfunction with acute exacerbation. -Acute renal failure on chronic kidney disease stage IV -hypervolemic hyponatremia: Improved -Elevated TSH: We'll obtain T4 with that's normal outpatient repeat TSH in about a month will probably sick euthyroid syndrome Patient Condition at Discharge: Fair Plan - Discharge Summary Discharge Rx Participant: No New Discharge Prescriptions: New Apixaban [Eliquis] 2.5 mg PO BID 30 Days #60 tablet Furosemide [Lasix] 40 mg PO BID@0900,1600 #60 tab Continue Insulin Lispro See Protocol SQ AC-TID PRN PRN Reason: HIGH BLOOD SUGAR Discontinued Apixaban [Eliquis] 2.5 mg PO BID #60 tablet lisinopriL [Zestril] 5 mg PO DAILY #0 metOLazone [Zaroxolyn] 2.5 mg PO DAILY Insulin Lispro 6 units SQ W/BRKFST Furosemide [Lasix] 60 mg PO BID Insulin Lispro 8 units SQ W/SUPPER Insulin Lispro 6 units SQ W/LUNCH No Action Atorvastatin [Lipitor] 40 mg PO HS Tamsulosin [Flomax] 0.4 mg PO DAILY Insulin Glargine,Hum.rec.anlog [Lantus Solostar] 16 unit SQ DAILY Potassium Chloride [Klor-Con 10] 20 meq PO BID Metoprolol Succinate (ER) [Toprol XL] 50 mg PO DAILY #180 tab Discharge Medication List Atorvastatin [Lipitor] 40 mg PO HS 11/11/18 [History] Insulin Glargine,Hum.rec.anlog [Lantus Solostar] 16 unit SQ DAILY 09/23/19 [History] Potassium Chloride [Klor-Con 10] 20 meq PO BID 09/23/19 [History] Tamsulosin [Flomax] 0.4 mg PO DAILY 09/23/19 [History] Metoprolol Succinate (ER) [Toprol XL] 50 mg PO DAILY #180 tab 09/29/19 [Rx] Insulin Lispro See Protocol SQ AC-TID PRN 09/07/20 [History] Apixaban [Eliquis] 2.5 mg PO BID 30 Days #60 tablet 09/09/20 [Rx] Furosemide [Lasix] 40 mg PO BID@0900,1600 #60 tab 09/10/20 [Rx] Follow up Appointment(s)/Referral(s): eBulah Reyes MD [Primary Care Provider] - 1-2 days Levon Barlow MD [STAFF PHYSICIAN] - 2 Weeks Activity/Diet/Wound Care/Special Instructions: Please send indigent form to [facility] pharmacy when patient is d/c, form in chart.
[2020-09-10] MEDS ORDERED: FUROSEMIDE 20 MG TAB PO SCH (16:00)
== END 2020-09-10 15:40 | disposition home health service (06) | DRG 308 ==
LOC: EC 19:13 → 3SCARD 23:04
PROVIDERS: ADMIT Hospitalist; ATTEND Hospitalist
DX: I48.19 Other persistent atrial fibrillation (principal); I50.23 Acute on chronic systolic (congestive) heart failure; I13.0 Hypertensive heart and chronic kidney disease with heart failure and stage 1 through stage 4 chronic kidney disease, or unspecified chronic kidney disease; N18.4 Chronic kidney disease, stage 4 (severe); E87.1 Hypo-osmolality and hyponatremia; N17.9 Acute kidney failure, unspecified; N40.0 Benign prostatic hyperplasia without lower urinary tract symptoms; T45.516A Underdosing of anticoagulants, initial encounter; I25.119 Atherosclerotic heart disease of native coronary artery with unspecified angina pectoris; R79.89 Other specified abnormal findings of blood chemistry; R07.89 Other chest pain; R07.81 Pleurodynia; K21.9 Gastro-esophageal reflux disease without esophagitis; M19.90 Unspecified osteoarthritis, unspecified site; E11.22 Type 2 diabetes mellitus with diabetic chronic kidney disease; R94.6 Abnormal results of thyroid function studies; I08.1 Rheumatic disorders of both mitral and tricuspid valves; E11.649 Type 2 diabetes mellitus with hypoglycemia without coma; I27.20 Pulmonary hypertension, unspecified; E78.5 Hyperlipidemia, unspecified; I25.2 Old myocardial infarction; I25.10 Atherosclerotic heart disease of native coronary artery without angina pectoris; I25.5 Ischemic cardiomyopathy; Z79.01 Long term (current) use of anticoagulants; Z79.4 Long term (current) use of insulin; Z79.899 Other long term (current) drug therapy; Z86.73 Personal history of transient ischemic attack (TIA), and cerebral infarction without residual deficits; Z91.14 Patient's other noncompliance with medication regimen; Z91.19 Patient's noncompliance with other medical treatment and regimen; Z95.810 Presence of automatic (implantable) cardiac defibrillator; X58.XXXA Exposure to other specified factors, initial encounter; Z98.42 Cataract extraction status, left eye; Z98.41 Cataract extraction status, right eye; Z88.8 Allergy status to other drugs, medicaments and biological substances; Z95.5 Presence of coronary angioplasty implant and graft; Z91.128 Patient's intentional underdosing of medication regimen for other reason
CPT/HCPCS: 36415; 71045; 80048; 80053; 80061; 83735; 84439; 84443; 84484; 85025; 85610; 85730; 93005; 93306; 99285

== ENCOUNTER 2020-09-15 22:05 | Inpatient (IN) | payer MEDICARE ==
--- NOTE | 2020-09-15 22:22 | ED ---
SOB HPI - General Stated Complaint: SOB Time Seen by Provider: 09/15/20 22:13 Source: RN notes reviewed, old records reviewed Mode of arrival: EMS Limitations: no limitations - History of Present Illness Initial Comments: This is an 80-year-old male DF for evaluation patient presents today for evaluation regards to shortness of breath. Recent hospital admission and discharged last week. Same issues. Swollen lower extremities with shortness of breath worsening with down worse when he does activity. History of significant CHF and renal disease. Patient denying current chest pain. Patient also has history of atrial fibrillation on anticoagulation with history of DC MD Complaint: shortness of breath -: days(s) Severity: severe Severity scale (1-10): 8 Consistency: constant Improves With: nothing Worsens With: nothing Known History Of: congestive heart failure Context: recent URI, anxiety, recent illness Associated Symptoms: cough, palpitations Treatments Prior to Arrival: none - Related Data Home Medications Medication Instructions Recorded Confirmed Atorvastatin [Lipitor] 40 mg PO HS 11/11/18 09/07/20 Insulin Glargine,Hum.rec.anlog 16 unit SQ DAILY 09/23/19 09/07/20 [Lantus Solostar] Potassium Chloride [Klor-Con 10] 20 meq PO BID 09/23/19 09/07/20 Tamsulosin [Flomax] 0.4 mg PO DAILY 09/23/19 09/07/20 Insulin Lispro See Protocol SQ AC-TID PRN 09/07/20 09/07/20 Previous Rx's Medication Instructions Recorded Metoprolol Succinate (ER) [Toprol 50 mg PO DAILY #180 tab 09/29/19 XL] Apixaban [Eliquis] 2.5 mg PO BID 30 Days #60 tablet 09/09/20 Furosemide [Lasix] 40 mg PO BID@0900,1600 #60 tab 09/10/20 Allergies Allergy/AdvReac Type Severity Reaction Status Date / Time metformin Allergy Unknown Verified 09/07/20 21:28 Review of Systems ROS Statement: Those systems with pertinent positive or pertinent negative responses have been documented in the HPI. ROS Other: All systems not noted in ROS Statement are negative. Past Medical History Past Medical History: Atrial Fibrillation, CVA/TIA, Diabetes Mellitus, GERD/Reflux, Hyperlipidemia, Hypertension, Myocardial Infarction (DC), Musculoskeletal Disorder, Osteoarthritis (OA), Prostate Disorder, Renal Disease Additional Past Medical History / Comment(s): Pt recently admitted to [facility] on 11/11/18 with new onset Afib/RVR, acute CHF, acute kidney injury possible CKD stage III. Other hx: IDDM type II, TIAs, increased weakness, problems, BPH, low back pain, SEE DR ROLDAN'S HISTORY AND PHYSICAL FOR CARDIAC HISTORY Last Myocardial Infarction Date:: 01/17/14 History of Any Multi-Drug Resistant Organisms: None Reported Past Surgical History: Heart Catheterization With Stent Additional Past Surgical History / Comment(s): Hx CARDIAC-4 stents, LASER - BOTH EYES , CATARACT SURGERY - BOTH EYES Past Anesthesia/Blood Transfusion Reactions: No Reported Reaction Date of Last Stent Placement:: 2013 Type of Cardiac Device: AICD Device Placement Date:: 2019 Past Psychological History: No Psychological Hx Reported Smoking Status: Never smoker Past Alcohol Use History: None Reported Past Drug Use History: None Reported - Past Family History Mother Family Medical History: Coronary Artery Disease (CAD), Diabetes Mellitus Additional Family Medical History / Comment(s): Mother at the age of 72 yrs and pt thinks possible due to DC Father Family Medical History: Cancer Additional Family Medical History / Comment(s): Father of lung cancer at the age of 66yrs. Sister(s) Family Medical History: Congestive Heart Failure (CHF), Diabetes Mellitus Brother(s) Family Medical History: Myocardial Infarction (DC) Daughter(s) Family Medical History: No Reported History General Exam General appearance: alert, in no apparent distress, anxious Head exam: Present: atraumatic, normocephalic, normal inspection Eye exam: Present: normal appearance, PERRL, EOMI. Absent: scleral icterus, conjunctival injection, periorbital swelling ENT exam: Present: normal exam, mucous membranes moist Neck exam: Present: normal inspection. Absent: tenderness, meningismus, lymphadenopathy Respiratory exam: Present: respiratory distress, rales, accessory muscle use, decreased breath sounds, prolonged expiratory. Absent: wheezes, rhonchi, stridor Cardiovascular Exam: Present: tachycardia, irregular rhythm, normal heart sounds. Absent: systolic murmur, diastolic murmur, rubs, gallop, clicks GI/Abdominal exam: Present: soft, normal bowel sounds. Absent: distended, tenderness, guarding, rebound, rigid Extremities exam: Present: normal inspection, full ROM, normal capillary refill. Absent: tenderness, pedal edema, joint swelling, calf tenderness Back exam: Present: normal inspection Neurological exam: Present: alert, oriented X3, CN II-XII intact Psychiatric exam: Present: normal affect, normal mood Skin exam: Present: warm, dry, intact, normal color. Absent: rash Course Vital Signs 09/15/20 22:18 Temperature 98.2 F Pulse Rate 113 H Respiratory 20 Rate Blood Pressure 90/58 O2 Sat by Pulse 95 Oximetry - Reevaluation(s) Reevaluation #1: 09/15/20 23:28 Medical record is reviewed Reevaluation #2: 09/15/20 23:28 Patient's in no acute distress here in the ER Reevaluation #3: 09/15/20 23:29 Patient informed results and questions answered - Consultations Consultation #1: Spoke with [facility] will admit the patient Medical Decision Making - Medical Decision Making 80 male to the ER for evaluation. Patient be admitted for recurrent CHF, signif icant shortness of breath with acute renal failure, renal injury worsen baseline. Patient has no chest pain elevated troponin although improved from prior - Lab Data Result diagrams: 09/15/20 22:22 09/15/20 22:22 Lab Results 09/15/20 09/15/20 09/15/20 Range/Units 22:22 22:22 22:22 WBC 7.8 (3.8-10.6) k/uL RBC 4.29 L (4.30-5.90) m/uL Hgb 12.8 L (13.0-17.5) gm/dL Hct 40.1 (39.0-53.0) % MCV 93.4 (80.0-100.0) fL MCH 29.9 (25.0-35.0) pg MCHC 32.0 (31.0-37.0) g/dL RDW 15.0 (11.5-15.5) % Plt Count 202 (150-450) k/uL MPV 9.2 Neutrophils % 69 % Lymphocytes % 19 % Monocytes % 7 % Eosinophils % 2 % Basophils % 1 % Neutrophils # 5.4 (1.3-7.7) k/uL Lymphocytes # 1.5 (1.0-4.8) k/uL Monocytes # 0.6 (0-1.0) k/uL Eosinophils # 0.2 (0-0.7) k/uL Basophils # 0.1 (0-0.2) k/uL PT 13.4 H (9.0-12.0) sec INR 1.3 H (<1.2) APTT 26.4 (22.0-30.0) sec Sodium 129 L (137-145) mmol/L Potassium 4.9 (3.5-5.1) mmol/L Chloride 102 (98-107) mmol/L Carbon Dioxide 16 L (22-30) mmol/L Anion Gap 11 mmol/L BUN 84 H (9-20) mg/dL Creatinine 3.44 H (0.66-1.25) mg/dL Est GFR (CKD-EPI)AfAm 18 (>60 ml/min/1.73 sqM) Est GFR (CKD-EPI)NonAf 16 (>60 ml/min/1.73 sqM) Glucose 161 H (74-99) mg/dL Plasma Lactic Acid Maurice (0.7-2.0) mmol/L Calcium 7.3 L (8.4-10.2) mg/dL Phosphorus 5.4 H (2.5-4.5) mg/dL Magnesium 1.8 (1.6-2.3) mg/dL Total Bilirubin 0.7 (0.2-1.3) mg/dL AST 25 (17-59) U/L ALT 30 (4-49) U/L Alkaline Phosphatase 90 (38-126) U/L Creatine Kinase 487 H (55-170) U/L Troponin I (0.000-0.034) ng/mL Total Protein 5.8 L (6.3-8.2) g/dL Albumin 3.2 L (3.5-5.0) g/dL 09/15/20 09/15/20 Range/Units 22:22 22:22 WBC (3.8-10.6) k/uL RBC (4.30-5.90) m/uL Hgb (13.0-17.5) gm/dL Hct (39.0-53.0) % MCV (80.0-100.0) fL MCH (25.0-35.0) pg MCHC (31.0-37.0) g/dL RDW (11.5-15.5) % Plt Count (150-450) k/uL MPV Neutrophils % % Lymphocytes % % Monocytes % % Eosinophils % % Basophils % % Neutrophils # (1.3-7.7) k/uL Lymphocytes # (1.0-4.8) k/uL Monocytes # (0-1.0) k/uL Eosinophils # (0-0.7) k/uL Basophils # (0-0.2) k/uL PT (9.0-12.0) sec INR (<1.2) APTT (22.0-30.0) sec Sodium (137-145) mmol/L Potassium (3.5-5.1) mmol/L Chloride (98-107) mmol/L Carbon Dioxide (22-30) mmol/L Anion Gap mmol/L BUN (9-20) mg/dL Creatinine (0.66-1.25) mg/dL Est GFR (CKD-EPI)AfAm (>60 ml/min/1.73 sqM) Est GFR (CKD-EPI)NonAf (>60 ml/min/1.73 sqM) Glucose (74-99) mg/dL Plasma Lactic Acid Maurice 1.5 (0.7-2.0) mmol/L Calcium (8.4-10.2) mg/dL Phosphorus (2.5-4.5) mg/dL Magnesium (1.6-2.3) mg/dL Total Bilirubin (0.2-1.3) mg/dL AST (17-59) U/L ALT (4-49) U/L Alkaline Phosphatase (38-126) U/L Creatine Kinase (55-170) U/L Troponin I 0.122 H* (0.000-0.034) ng/mL Total Protein (6.3-8.2) g/dL Albumin (3.5-5.0) g/dL - EKG Data -: EKG Interpreted by Me (EKG is A. fib with RVR oral 7 QRS 1:30 QTC 528) - Radiology Data Radiology results: report reviewed (Chest x-rays positive for CHF), image reviewed Disposition Clinical Impression: Congestive heart failure, Atrial fibrillation with rapid ventricular response, Weakness, Systolic congestive heart failure, Acute pulmonary edema, Acute renal failure Disposition: ADMITTED IP TO THIS [facility] Condition: Serious Is patient prescribed a controlled substance at d/c from ED?: No Referrals: Beulah Reyes MD [Primary Care Provider] - 1-2 days
[2020-09-15 22:30] LABS: Basophils # (A) 0.1 k/uL (0-0.2); Basophils % (A) 1 %; Eosinophils # (A) 0.2 k/uL (0-0.7); Eosinophils % (A) 2 %; HCT 40.1 % (39.0-53.0); HGB 12.8 gm/dL (13.0-17.5); Lymphocytes # (A) 1.5 k/uL (1.0-4.8); Lymphocytes % (A) 19 %; MCH 29.9 pg (25.0-35.0); MCV 93.4 fL (80.0-100.0); Mean Platelet Volume 9.2; Monocytes # (A) 0.6 k/uL (0-1.0); Monocytes % (A) 7 %; Neutrophils # (A) 5.4 k/uL (1.3-7.7); Neutrophils % (A) 69 %; Platelet Count 202 k/uL (150-450); RBC 4.29 m/uL (4.30-5.90); WBC 7.8 k/uL (3.8-10.6)
[2020-09-15 22:42] LABS: INR 1.3 (<1.2); Partial Thromboplastin Time 26.4 sec (22.0-30.0); Prothrombin Time 13.4 sec (9.0-12.0)
[2020-09-15 22:43] LABS: Albumin 3.2 g/dL (3.5-5.0); Calcium 7.3 mg/dL (8.4-10.2); Magnesium 1.8 mg/dL (1.6-2.3); Phosphorus 5.4 mg/dL (2.5-4.5); Potassium 4.9 mmol/L (3.5-5.1); Total Bilirubin 0.7 mg/dL (0.2-1.3); Total Protein 5.8 g/dL (6.3-8.2)
--- NOTE | 2020-09-15 22:57 | XR ---
EXAMINATION TYPE: XR chest 2V DATE OF EXAM: 09/15/2020 COMPARISON: 09/07/2020 HISTORY: Weakness TECHNIQUE: FINDINGS: There is blunting of the costophrenic angles. Heart is enlarged. There is mild congestion. There is left axillary pacemaker. There are chest leads. IMPRESSION: Mild heart failure with small pleural effusions. Pulmonary congestion slightly increased compared to old exam.
[2020-09-16 04:54] LABS: Appearance,Urine Clear (Clear); Bilirubin,Urine Negative (Negative); Blood,Urine Negative (Negative); Color,Urine Yellow; Glucose,Urine (UA) Negative (Negative); Ketones,Urine Negative (Negative); Leukocyte Esterase,Urine Negative (Negative); Nitrite,Urine Negative (Negative); Protein,Urine Negative (Negative); Specific Gravity,Urine 1.013 (1.001-1.035); Urobilinogen,Urine <2.0 mg/dL (<2.0)
[2020-09-16] MEDS ORDERED: FAMOTIDINE 20 MG/2 ML VIAL IV SCH (09:00)
[2020-09-16] MEDS ORDERED: FUROSEMIDE 40 MG TAB PO SCH (09:00)
[2020-09-16 09:17] LABS: Basophils % (A) 1 %; Eosinophils # (A) 0.1 k/uL (0-0.7); Eosinophils % (A) 2 %; HCT 39.1 % (39.0-53.0); HGB 12.7 gm/dL (13.0-17.5); Lymphocytes # (A) 1.5 k/uL (1.0-4.8); Lymphocytes % (A) 19 %; MCH 30.4 pg (25.0-35.0); MCHC 32.5 g/dL (31.0-37.0); MCV 93.5 fL (80.0-100.0); Mean Platelet Volume 9.3; Monocytes # (A) 0.6 k/uL (0-1.0); Monocytes % (A) 7 %; Neutrophils # (A) 5.4 k/uL (1.3-7.7); Neutrophils % (A) 69 %; Platelet Count 174 k/uL (150-450); RBC 4.18 m/uL (4.30-5.90); RDW 15.1 % (11.5-15.5); WBC 7.8 k/uL (3.8-10.6)
[2020-09-16] MEDS: METOPROLOL SUCCINATE (ER) 50 MG TAB.ER.24H PO SCH (10:09)
[2020-09-16] MEDS: APIXABAN 2.5 MG TABLET PO SCH ×2 (10:10→21:57)
[2020-09-16] MEDS: TAMSULOSIN 0.4 MG CAP.ER.24H PO SCH (10:10)
--- NOTE | 2020-09-16 10:50 | P.HPIM ---
History of Present Illness This is a pleasant 80 years old male with past medical history of diabetes mellitus, hypertension, hyperlipidemia, CHF, atrial fibrillation, coronary artery disease status post stent placement, CVA/TIA, osteoarthritis, Benign prostatic hypertrophy , chronic low back pain, severe ischemic cardiomyopathy status post AICD. Recently discharged from this hospital about 1 week ago for A. fib and RVR, acute kidney injury Presents because of dyspnea present since his been discharged from the hospital with no improvement. Patient is orthopnic, he denies paroxysmal nocturnal dyspnea but he said he is not sleeping during the night. He has dry. No chest pain but he has epigastric upset. Nausea but no vomiting. He is constipated. Patient is noncompliant with fluid restriction for example he takes a couple of coffee in the morning, and 2 cups of tea in the afternoon and evening besides 1 or more water. He denies smoking, alcohol or illicit drugs. His lung exams are clear but he has massive bilateral leg swelling more on the right side On admission patient is mildly tachycardic around 113. This morning heart rate is 96, blood pressure 96/60-108/79. Oxygen saturation is 98% on room air or 2 L oxygen via na sodium is mildly low at 129 valentino cannula and patient is afebrile. Labs showing elevated troponin which is output total of 0.12, last week was elevated 0.4-0.6 CBC is unremarkable except for mildly low hemoglobin of 12.8, RR is 1.3. Low sodium at 129 compared to 136 on discharge, elevated creatinine at 3.4, compared to baseline of 2.0-2.6[place] [address] compared to 24,000 last severe Urine analysis is not suspicious of infection EKG showing atrial fibrillation's with RVR at 100 and 07, T is 528. No significant ST T abnormalities Chest x-ray: Showed mild heart failure with small pleural effusion pulmonary pulmonary congestion is slightly increased compared to old exam Patient did not receive any medicine in the emergency room but was admitted with cardiology and nephrology consultation Review of Systems CONSTITUTIONAL: No fever, no malaise, no fatigue. HEENT: No recent visual problems or hearing problems. Denied any sore throat. CARDIOVASCULAR: No dizziness, no palpitations, no syncope. PULMONARY: No chest wall tenderness, no hemoptysis. GASTROINTESTINAL: No diarrhea, no nausea, no vomiting, no abdominal pain. Normoactive bowel sounds. NEUROLOGICAL: No headaches, no weakness, no numbness. HEMATOLOGICAL: Denies any bleeding or petechiae. GENITOURINARY: Denies any burning micturition, frequency, or urgency. MUSCULOSKELETAL/RHEUMATOLOGICAL: Denies any joint pain, swelling, or any muscle pain. ENDOCRINE: Denies any polyuria or polydipsia. Past Medical History Past Medical History: Atrial Fibrillation, CVA/TIA, Diabetes Mellitus, GERD/Reflux, Hyperlipidemia, Hypertension, Myocardial Infarction ([place]), Musculoskeletal Disorder, Osteoarthritis (OA), Prostate Disorder, Renal Disease Additional Past Medical History / Comment(s): Pt recently admitted to [facility] on 11/11/18 with new onset Afib/RVR, acute CHF, acute kidney injury possible CKD stage III. Other hx: IDDM type II, TIAs, increased weakness, problems, BPH, low back pain, SEE DR ROLDAN'S HISTORY AND PHYSICAL FOR CARDIAC HISTORY Last Myocardial Infarction Date:: 01/17/14 History of Any Multi-Drug Resistant Organisms: None Reported Past Surgical History: Heart Catheterization With Stent Additional Past Surgical History / Comment(s): Hx CARDIAC-4 stents, LASER - BOTH EYES , CATARACT SURGERY - BOTH EYES Past Anesthesia/Blood Transfusion Reactions: No Reported Reaction Date of Last Stent Placement:: 2013 Type of Cardiac Device: AICD Device Placement Date:: 2019 Past Psychological History: No Psychological Hx Reported Smoking Status: Never smoker Past Alcohol Use History: None Reported Past Drug Use History: None Reported - Past Family History Mother Family Medical History: Coronary Artery Disease (CAD), Diabetes Mellitus Additional Family Medical History / Comment(s): Mother at the age of 72 yrs and pt thinks possible due to [place] Father Family Medical History: Cancer Additional Family Medical History / Comment(s): Father of lung cancer at the age of 66yrs. Sister(s) Family Medical History: Congestive Heart Failure (CHF), Diabetes Mellitus Brother(s) Family Medical History: Myocardial Infarction ([place]) Daughter(s) Family Medical History: No Reported History Medications and Allergies Home Medications Medication Instructions Recorded Confirmed Type Atorvastatin [Lipitor] 40 mg PO HS 11/11/18 09/15/20 History Insulin Glargine,Hum.rec.anlog 16 unit SQ DAILY 09/23/19 09/15/20 History [Lantus Solostar] Potassium Chloride [Klor-Con 10] 20 meq PO BID 09/23/19 09/15/20 History Tamsulosin [Flomax] 0.4 mg PO DAILY 09/23/19 09/15/20 History Metoprolol Succinate (ER) [Toprol 50 mg PO DAILY #180 tab 09/29/19 09/15/20 Rx XL] Insulin Lispro See Protocol SQ AC-TID PRN 09/07/20 09/15/20 History Apixaban [Eliquis] 2.5 mg PO BID 30 Days #60 tablet 09/09/20 09/15/20 Rx Furosemide [Lasix] 40 mg PO BID@0900,1600 #60 tab 09/10/20 09/15/20 Rx Allergies Allergy/AdvReac Type Severity Reaction Status Date / Time metformin Allergy Unknown Verified 09/07/20 21:28 Physical Exam Vitals: Vital Signs Temp Pulse Pulse Resp BP Pulse Ox 09/16/20 04:00 96 18 108/79 98 09/16/20 00:18 96 20 96/60 98 09/15/20 23:00 102 H 20 98/58 99 09/15/20 22:20 113 H 20 09/15/20 22:18 98.2 F 113 H 20 90/58 95 Intake and Output 09/15/20 09/16/20 09/16/20 22:59 06:59 14:59 Other: Weight 90.718 kg GENERAL: The patient is alert and oriented x3, not in any acute distress. Well developed, well nourished. HEENT: Pupils are round and equally reacting to light. EOMI. No scleral icterus. No conjunctival pallor. Normocephalic, atraumatic. No pharyngeal erythema. No thyromegaly. CARDIOVASCULAR: S1 and S2 present. No murmurs, rubs, or gallops. PULMONARY: Chest is clear to auscultation, no wheezing or crackles. ABDOMEN: Soft, nontender, nondistended, normoactive bowel sounds. No palpable organomegaly. MUSCULOSKELETAL: No joint swelling or deformity. -EXTREMITIES: No cyanosis, clubbing,. 2+ bilateral pitting leg edema, more on the right side NEUROLOGICAL: Gross neurological examination did not reveal any focal deficits. SKIN: No rashes. No petechiae Results CBC & Chem 7: 09/16/20 08:08 09/15/20 22:22 Labs: Abnormal Lab Results - Last 24 Hours (Table) 09/15/20 09/15/20 09/15/20 Range/Units 22:22 22:22 22:22 RBC 4.29 L (4.30-5.90) m/uL Hgb 12.8 L (13.0-17.5) gm/dL PT 13.4 H (9.0-12.0) sec INR 1.3 H (<1.2) Sodium 129 L (137-145) mmol/L Carbon Dioxide 16 L (22-30) mmol/L BUN 84 H (9-20) mg/dL Creatinine 3.44 H (0.66-1.25) mg/dL Glucose 161 H (74-99) mg/dL Calcium 7.3 L (8.4-10.2) mg/dL Phosphorus 5.4 H (2.5-4.5) mg/dL Creatine Kinase 487 H (55-170) U/L Troponin I (0.000-0.034) ng/mL Total Protein 5.8 L (6.3-8.2) g/dL Albumin 3.2 L (3.5-5.0) g/dL 09/15/20 09/16/20 09/16/20 Range/Units 22:22 01:28 05:19 RBC (4.30-5.90) m/uL Hgb (13.0-17.5) gm/dL PT (9.0-12.0) sec INR (<1.2) Sodium (137-145) mmol/L Carbon Dioxide (22-30) mmol/L BUN (9-20) mg/dL Creatinine (0.66-1.25) mg/dL Glucose (74-99) mg/dL Calcium (8.4-10.2) mg/dL Phosphorus (2.5-4.5) mg/dL Creatine Kinase (55-170) U/L Troponin I 0.122 H* 0.121 H* 0.124 H* (0.000-0.034) ng/mL Total Protein (6.3-8.2) g/dL Albumin (3.5-5.0) g/dL Assessment and Plan Assessment: Acute on chronic kidney disease acute on chronic systolic CHF . Ejection fraction last week less than 20% hypervolemic hyponatremia Persistent troponin leak Chronic kidney disease stage IV Chronic atrial fibrillation. Diabetes mellitus History of hypertension Hyperlipidemia History of coronary artery disease status post stent placement History of CVA/TIA Benign prostatic hypertrophy Chronic low back pain and osteoarthritis Plan: This is a pleasant 80 years old male who presents with persistent dyspnea, acute kidney injury and CHF. Continue with Lasix. Follow-up sodium level check bladder scan check hemoglobin A1c Fluid restriction 1200 mL per day Patient will need more IV Lasix, however will defer this decision to nephrology and cardiology team since they are on the case Labs and medication were reviewed.. Continue same treatment. Continue with symptomatic treatment. Resume home medication. Monitor lytes and vitals. DVT and GI prophylaxis. Further recommendations depends on the clinical course of the patient DVT prophylaxis:Eliquis GI Prophylaxis: Pepcid PT/OT: Pending Prognosis is guarded
[2020-09-16 11:52] LABS: Glucose,Whole Blood 151 mg/dL (75-99)
[2020-09-16] MEDS ORDERED: FUROSEMIDE 10 MG/ML 10 ML VIAL IV STA (11:59)
[2020-09-16] MEDS: DIGOXIN 125 MCG TAB PO SCH (12:58)
[2020-09-16] MEDS: INSULIN ASPART (NovoLOG) 100 UNIT/ML VIAL SQ SCH ×3 (12:58→21:56)
--- NOTE | 2020-09-16 13:10 | P.CRDCN ---
History of Present Illness History of present illness: HISTORY OF PRESENTING ILLNESS This is a pleasant 80-year-old male past medical history significant for coronary artery disease with total occlusion of the LAD 2013, ischemic cardiomyopathy status post AICD ([employer]), chronic persistent atrial fibrillation on long-term anticoagulation, hypertension, dyslipidemia and diabetes mellitus. He follows in the office with Dr. Chapa. We have been asked to see in consultation for heart failure. He was here last week and treated for heart failure with IV diuretics. According to the patient when he was discharged home he still didn't feel good. Over the weekend he was becoming increasing weak, tired and short of breath. He is quite ornery and complaining that he has felt this way for over a year with no real relief. He denies chest pain, dizziness or palpitations. EKG on arrival revealed atrial fibrillation heart rate of 107, left axis deviation, ventricular pacing an intraventricular conduction delay. Chest x-ray reveals mild heart failure with small pleural effusions and slightly increased pulmonary congestion compared to previous exam. Laboratory data reviewed, WBC 7.8, hemoglobin 12.7, platelets 174, sodium 129, potassium 4.9, creatinine 3.44, magnesium 1.8, troponin 0.122, 0.121, 0.124 and NT proBNP 59,900. Current daily cardiac medications include Toprol 50 mg daily, Lasix 40 mg by mouth twice a day, Lipitor 40 mg at bedtime and Eliquis 2.5 mg twice a day. Most recent echocardiogram obtained last week revealed severely impaired LV systolic function with ejection fraction less than 20%, pacer wire seen in the RV and RA, moderate mitral regurgitation, mild tricuspid regurgitation and mild pulmonary hypertension with an RVSP of 44 mmHg. REVIEW OF SYSTEMS At the time of my exam: CONSTITUTIONAL: Complains of generalized weakness and fatigue. Denies fever or chills. CARDIOVASCULAR: Complains of shortness of breath. Denies chest pain, orthopnea, PND or palpitations. RESPIRATORY: Denies cough. GASTROINTESTINAL: Denies abdominal pain, diarrhea, constipation, nausea or vomiting. MUSCULOSKELETAL: Denies myalgias. NEUROLOGIC: Denies numbness, tingling, headacbe or weakness. ENDOCRINE: Denies fatigue, weight change, polydipsia or polyurina. GENITOURINARY: Denies burning, hematuria or urgency with micturation. HEMATOLOGIC: Denies history of anemia or bleeding. PHYSICAL EXAMINATION Blood pressure 108/79 heart rate 96 afebrile and maintaining oxygen saturation on room air. CONSTITUTIONAL: No apparent distress. HEENT: Head is normocephalic. Pupils are equal, round. Sclerae anicteric. Mucous membranes of the mouth are moist. No JVD. No carotid bruit. CHEST EXAMINATION: Bibasilar rales, no wheezes or rhoncho. No chest wall tenderness is noted on palpation or with deep breathing. HEART EXAMINATION: Irregular rate and rhythm. S1, S2 heard. No murmurs, gallops or rub. ABDOMEN: Soft, nontender. Positive bowel sounds. EXTREMITIES: 2+ peripheral pulses, trace bilateral lower extremity edema and no calf tenderness. NEUROLOGIC EXAMINATION: Patient is awake, alert and oriented x3. ASSESSMENT Acute on chronic systolic heart failure Acute on chronic kidney disease Hyponatremia Elevated troponin secondary to renal function, not suggestive of an acute coronary event Hypertension Dyslipidemia Diabetes mellitus PLAN Give IV lasix 80 mg now. Initiate digoxin for tighter rate control. Follow renal function and electrolytes in the morning. Document accurate intake and output along with daily weights. Further recommendations to follow based on clinical course. Thank you kindly for this consultation. Nurse Practitioner note has been reviewed, I agree with a documented findings and plan of care. Patient was seen and examined. Past Medical History Past Medical History: Atrial Fibrillation, CVA/TIA, Diabetes Mellitus, GERD/Reflux, Hyperlipidemia, Hypertension, Myocardial Infarction ([place]), Musculoskeletal Disorder, Osteoarthritis (OA), Prostate Disorder, Renal Disease Additional Past Medical History / Comment(s): Pt recently admitted to [facility] on 11/11/18 with new onset Afib/RVR, acute CHF, acute kidney injury possible CKD stage III. Other hx: IDDM type II, TIAs, increased weakness, problems, BPH, low back pain, SEE DR ROLDAN'S HISTORY AND PHYSICAL FOR CARDIAC HISTORY Last Myocardial Infarction Date:: 01/17/14 History of Any Multi-Drug Resistant Organisms: None Reported Past Surgical History: Heart Catheterization With Stent Additional Past Surgical History / Comment(s): Hx CARDIAC-4 stents, LASER - BOTH EYES , CATARACT SURGERY - BOTH EYES Past Anesthesia/Blood Transfusion Reactions: No Reported Reaction Date of Last Stent Placement:: 2013 Type of Cardiac Device: AICD Device Placement Date:: 2019 Past Psychological History: No Psychological Hx Reported Smoking Status: Never smoker Past Alcohol Use History: None Reported Past Drug Use History: None Reported - Past Family History Mother Family Medical History: Coronary Artery Disease (CAD), Diabetes Mellitus Additional Family Medical History / Comment(s): Mother at the age of 72 yrs and pt thinks possible due to [place] Father Family Medical History: Cancer Additional Family Medical History / Comment(s): Father of lung cancer at the age of 66yrs. Sister(s) Family Medical History: Congestive Heart Failure (CHF), Diabetes Mellitus Brother(s) Family Medical History: Myocardial Infarction ([place]) Daughter(s) Family Medical History: No Reported History Medications and Allergies Home Medications Medication Instructions Recorded Confirmed Type Atorvastatin [Lipitor] 40 mg PO HS 11/11/18 09/15/20 History Insulin Glargine,Hum.rec.anlog 16 unit SQ DAILY 09/23/19 09/15/20 History [Lantus Solostar] Potassium Chloride [Klor-Con 10] 20 meq PO BID 09/23/19 09/15/20 History Tamsulosin [Flomax] 0.4 mg PO DAILY 09/23/19 09/15/20 History Metoprolol Succinate (ER) [Toprol 50 mg PO DAILY #180 tab 09/29/19 09/15/20 Rx XL] Insulin Lispro See Protocol SQ AC-TID PRN 09/07/20 09/15/20 History Apixaban [Eliquis] 2.5 mg PO BID 30 Days #60 tablet 09/09/20 09/15/20 Rx Furosemide [Lasix] 40 mg PO BID@0900,1600 #60 tab 09/10/20 09/15/20 Rx Allergies Allergy/AdvReac Type Severity Reaction Status Date / Time metformin Allergy Unknown Verified 09/07/20 21:28 Physical Exam Vitals: Vital Signs Temp Pulse Pulse Resp BP Pulse Ox 09/16/20 04:00 96 18 108/79 98 09/16/20 00:18 96 20 96/60 98 09/15/20 23:00 102 H 20 98/58 99 09/15/20 22:20 113 H 20 09/15/20 22:18 98.2 F 113 H 20 90/58 95 Intake and Output 09/15/20 09/16/20 09/16/20 22:59 06:59 14:59 Other: Weight 90.718 kg Results 09/16/20 08:08 09/15/20 22:22 Cardiac Enzymes 09/15/20 09/15/20 09/16/20 Range/Units 22:22 22:22 01:28 AST 25 (17-59) U/L Troponin I 0.122 H* 0.121 H* (0.000-0.034) ng/mL 09/16/20 Range/Units 05:19 AST (17-59) U/L Troponin I 0.124 H* (0.000-0.034) ng/mL Coagulation 09/15/20 Range/Units 22:22 PT 13.4 H (9.0-12.0) sec APTT 26.4 (22.0-30.0) sec CBC 09/15/20 Range/Units 22:22 WBC 7.8 (3.8-10.6) k/uL RBC 4.29 L (4.30-5.90) m/uL Hgb 12.8 L (13.0-17.5) gm/dL Hct 40.1 (39.0-53.0) % Plt Count 202 (150-450) k/uL Comprehensive Metabolic Panel 09/15/20 Range/Units 22:22 Sodium 129 L (137-145) mmol/L Potassium 4.9 (3.5-5.1) mmol/L Chloride 102 (98-107) mmol/L Carbon Dioxide 16 L (22-30) mmol/L BUN 84 H (9-20) mg/dL Creatinine 3.44 H (0.66-1.25) mg/dL Glucose 161 H (74-99) mg/dL Calcium 7.3 L (8.4-10.2) mg/dL AST 25 (17-59) U/L ALT 30 (4-49) U/L Alkaline Phosphatase 90 (38-126) U/L Total Protein 5.8 L (6.3-8.2) g/dL Albumin 3.2 L (3.5-5.0) g/dL Current Medications Generic Name Dose Route Start Last Admin Trade Name Freq PRN Reason Stop Dose Admin Apixaban 2.5 mg 09/16/20 09:00 Apixaban 2.5 Mg Tablet PO BID [facility] Protocol Atorvastatin Calcium 40 mg 09/16/20 21:00 Atorvastatin 40 Mg Tab PO HS NANCIE Famotidine 10 mg 09/16/20 09:00 Famotidine 20 Mg/2 Ml Vial IV Q12HR [facility] Furosemide 40 mg 09/16/20 09:00 Furosemide 40 Mg Tab PO BID@0900,1600 [facility] Insulin Aspart 0 unit 09/16/20 12:30 Insulin Aspart (Novolog) 100 Unit/Ml Vial SQ ACHS [facility] Protocol Insulin Detemir 12 unit 09/17/20 07:00 Insulin Detemir (Levemir) 100 Unit/Ml Syr SQ DAILY@0700 [facility] Metoprolol Succinate 50 mg 09/16/20 09:00 Metoprolol Succinate (Er) 50 Mg Tab.Er.24h PO DAILY [facility] Tamsulosin HCl 0.4 mg 09/16/20 09:00 Tamsulosin 0.4 Mg Cap.Er.24h PO DAILY [facility] Intake and Output 09/15/20 09/16/20 09/16/20 22:59 06:59 14:59 Other: Weight 90.718 kg 09/15/20 22:22 09/15/20 22:22
[2020-09-16 14:20] VITALS: BMI 27.1
[2020-09-16 16:24] LABS: Glucose,Whole Blood 110 mg/dL (75-99)
[2020-09-16 17:26] LABS: Hemoglobin A1C 8.5 % (4.0-6.0)
[2020-09-16] MEDS ORDERED: MIDODRINE 5 MG TAB PO SCH (17:30)
[2020-09-16] MEDS: SODIUM BICARBONATE TAB 650 MG TAB PO SCH (17:44)
[2020-09-16 18:14] LABS: Calcium 7.5 mg/dL (8.4-10.2); Potassium 4.2 mmol/L (3.5-5.1)
[2020-09-16 20:18] LABS: Glucose,Whole Blood 160 mg/dL (75-99)
--- NOTE | 2020-09-16 20:51 | US ---
EXAMINATION TYPE: US kidneys/renal and bladder DATE OF EXAM: 09/16/2020 COMPARISON: NONE CLINICAL HISTORY: RF. abnormal labs EXAM MEASUREMENTS: Right Kidney: 11.4 x 5.7 x 5.7 cm Left Kidney: 11.6 x 4.8 x 5.8 cm Right Kidney: Lobular renal cortex . Normal echogenicity. No hydronephrosis or focal lesions. Left Kidney: Lobular renal cortex, prominent pyramids . Otherwise normal echogenicity. No hydronephr osis or focal lesions. Bladder: distended, wall thickening = 6.8 mm. Bilateral Jets not seen IMPRESSION: No bilateral hydronephrosis. Nonspecific prominent left renal pyramids.
[2020-09-16] MEDS ORDERED: ATORVASTATIN 40 MG TAB PO SCH (21:00)
--- NOTE | 2020-09-16 21:14 | CONS ---
CONSULTATION REASON FOR CONSULT: Renal failure. HISTORY OF PRESENT ILLNESS: The patient is an 80-year-old male admitted to the hospital with complaints of weakness. Patient has been complaining of shortness of breath for the past 2-3 weeks. He was recently discharged from the hospital about a week ago after an admission for atrial fibrillation with RVR. He had acute kidney injury at that time. Currently he denies any fevers or chills. No significant urinary symptoms. Patient states that his legs have been much more swollen recently. Serum creatinine is 3.4 mg/dL on 09/15/2020. Previous labs show serum creatinine 2.6 on 09/10/2020 and he was about 2.0-2.3 in 2019. Blood pressure is low with systolic in the 90s. No history of use of nonsteroidal anti-inflammatory agents. No SANCHEZ inhibitors or angiotensin receptor blockers on board. PAST MEDICAL HISTORY: Significant for CKD stage IIIB, atrial flutter, type 2 diabetes, hypertension, CVA, TIA, SD, BPH, chronic back pain. PAST SURGICAL HISTORY: Cardiac catheterization, coronary stent placement, laser surgery both eyes, AICD placement. SOCIAL HISTORY: Negative for smoking, drug abuse or alcohol abuse. MEDICATIONS: Medications prior to admission included Lipitor, potassium, Flomax, Toprol, insulin, Eliquis, Lasix. ALLERGIES: INCLUDE METFORMIN, TYPE NOT KNOWN. REVIEW OF SYSTEMS: As per HPI. Other systems negative. EXAMINATION: Comfortable, awake, not in any acute distress. Alert and oriented x3. Blood pressure 90/59, heart rate 101 per minute. He is afebrile. Examination of the heart S1, S2. Examination of the lungs, bilateral breath sounds are heard. Abdomen is soft, nontender. Examination of lower extremities shows edema 2+ bilaterally. 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 Chest x-ray shows pulmonary venous congestion. LAB: Show hemoglobin 12.7, white cell count 7.8 on September 15. Sodium 129, potassium 4.9, CO2 is 16, BUN 84, creatinine 3.4. Troponin 0.121. UA is completely benign. ASSESSMENT: 1. Acute kidney injury, cardiorenal as well as secondary to hypotension, currently nonoliguric. The patient is volume overloaded. I will continue to diurese. He has had oral Lasix. Did receive a dose of IV Lasix earlier today. We can resume diuretics from tomorrow. Check cortisol level. Since blood pressure remains low and check ultrasound if not done during last admission. UA is currently completely benign. 2. Hyponatremia which is hypervolemic. Expect improvement with diuresis. 3. Metabolic acidosis secondary to renal failure, non gap. 4. Recent admission for atrial fibrillation with an RVR. PLAN: Check cortisol level. Continue to diurese patient. Add oral sodium bicarb as I would like to avoid IV bicarb given his hypervolemia. Repeat labs today and then again in a.m. Avoid nephrotoxic agents. Add one dose of midodrine. Check post-void residual. Check ultrasound of the kidneys. Thank you for this consultation. We will continue to follow the patient with you during his hospitalization. MMCONNIEL / IJN: [id number] / CALI
[2020-09-17 06:13] LABS: Glucose,Whole Blood 136 mg/dL (75-99)
[2020-09-17] MEDS ORDERED: INSULIN DETEMIR (LEVEMIR) 100 UNIT/ML SYR SQ SCH (07:00)
[2020-09-17 07:38] LABS: Calcium 7.5 mg/dL (8.4-10.2); Magnesium 1.8 mg/dL (1.6-2.3); Potassium 4.2 mmol/L (3.5-5.1)
[2020-09-17] MEDS ORDERED: FAMOTIDINE 20 MG/2 ML VIAL IV SCH (09:00)
[2020-09-17 09:49] VITALS: RESP 16; TEMP 97.6
[2020-09-17] MEDS: INSULIN ASPART (NovoLOG) 100 UNIT/ML VIAL SQ SCH ×2 (09:51→12:07)
[2020-09-17] MEDS: TAMSULOSIN 0.4 MG CAP.ER.24H PO SCH (09:52)
[2020-09-17] MEDS: FUROSEMIDE 40 MG TAB PO SCH ×2 (09:53→17:41)
[2020-09-17] MEDS: APIXABAN 2.5 MG TABLET PO SCH (09:53)
[2020-09-17] MEDS: SODIUM BICARBONATE TAB 650 MG TAB PO SCH (09:53)
[2020-09-17] MEDS: METOPROLOL SUCCINATE (ER) 50 MG TAB.ER.24H PO SCH (09:53)
[2020-09-17] MEDS: DIGOXIN 125 MCG TAB PO SCH (09:54)
[2020-09-17 11:44] LABS: Glucose,Whole Blood 179 mg/dL (75-99)
--- NOTE | 2020-09-17 13:07 | PN ---
PROGRESS NOTE The patient is seen for followup for acute kidney injury, mostly cardiorenal. Patient was admitted to the hospital with shortness of breath and fluid overload. He has been diuresed. Serum creatinine was 3.4, and it is down to 3.2. Previous creatinine 2.4- 2.6 mg/dL. PHYSICAL EXAMINATION: On examination today, blood pressure is 103/66, heart rate 88 per minute. Patient is afebrile. Examination of the heart S1, S2. Examination of the lungs, bilateral breath sounds are heard. Decreased breath sounds at bases. Abdomen: Soft, nontender. Obese. Exam of lower extremities shows edema 1+ bilaterally. 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 LAB: Show sodium 133, potassium 4.2, chloride 103, CO2 is 19, BUN 82, creatinine 3.26, magnesium 1.8, random cortisol level was 14. ASSESSMENT: 1. Acute kidney injury mostly cardiorenal currently stable with some improvement in creatinine. Continue to diurese patient. Lasix is currently p.o. Blood pressure remains on the lower side. 2. Metabolic acidosis associated with renal failure maintained on oral sodium bicarb. 3. Chronic kidney disease, mostly associated with chronic hypoperfusion cardiorenal syndrome, nephrosclerosis. UA is completely benign and ultrasound of the kidneys is unremarkable with kidney size about 11.4 and 11.6 cm. 4. Chronic hypotension mostly associated with congestive heart failure and ischemic cardiomyopathy. 5. Ischemic cardiomyopathy, ejection fraction less than 20%. PLAN: Continue to diurese the patient. I would hold off on the midodrine given his significant cardiomyopathy and congestive heart failure exacerbation. Repeat labs in a.m. MMCONNIEL / IJN: [id number] /
--- NOTE | 2020-09-17 14:06 | P.PN ---
Subjective This is a pleasant 80-year-old male past medical history significant for coronary artery disease with total occlusion of the LAD 2013, ischemic cardiomyopathy status post AICD ([employer]), chronic persistent atrial fibrillation on long-term anticoagulation, hypertension, dyslipidemia and diabetes mellitus. He follows in the office with Dr. Barlow. We have been asked to see in consultation for heart failure. He was here last week and treated for heart failure with IV diuretics. According to the patient when he was discharged home he still didn't feel good. Over the weekend he was becoming increasing weak, tired and short of breath. He is quite ornery and complaining that he has felt this way for over a year with no real relief. He denies chest pain, dizziness or palpitations. EKG on arrival revealed atrial fibrillation heart ra te of 107, left axis deviation, ventricular pacing an intraventricular conduction delay. Chest x-ray reveals mild heart failure with small pleural effusions and slightly increased pulmonary congestion compared to previous exam. On admission, serum creatinine 3.44, troponin 0.122, 0.121, 0.124 and NT proBNP 59,900, Sodium 129 Most recent echocardiogram obtained 09/08/20 revealed severely impaired LV systolic function with ejection fraction less than 20%, pacer wire seen in the RV and RA, moderate mitral regurgitation, mild tricuspid regurgitation and mild pulmonary hypertension with an RVSP of 44 mmHg. 09/17/20: Patient seen at bedside, no acute distress. He states he's feeling much better, has no concerns. He states he has been urinating frequently. Blood pressure 92/52, heart rate 85, afebrile, maintaining oxygen saturations on room air. Laboratory reviewed sodium 133, potassium 4.2, BUN 82, serum creatinine 3.26 (3.32 yesterday), magnesium 1.8. Nephrology following patient started on Lasix by mouth 40 mg twice a day, he's also on Eliquis 2.5 mg twice day, atorvastatin 40 mg nightly, digoxin 125mcg daily, metoprolol succinate 50 mg daily. urine output over past 24 hours is documented 650cc. Telemetry reviewed patient is to be atrial fibrillation with heart rates in the 80s to 90s. PHYSICAL EXAMINATION CONSTITUTIONAL: No apparent distress. HEENT: Head is normocephalic. No JVD. No carotid bruit. CHEST EXAMINATION: Lungs are clear bilaterally. chest wall tenderness is noted on palpation or with deep breathing. HEART EXAMINATION: Irregular rate and rhythm. S1, S2 heard. No murmurs, gallops or rub. ABDOMEN: Soft, nontender. Positive bowel sounds. EXTREMITIES: 2+ peripheral pulses, trace bilateral lower extremity edema and no calf tenderness. NEUROLOGIC EXAMINATION: Patient is awake, alert and oriented x3. ASSESSMENT Acute on chronic systolic heart failure Acute on chronic kidney disease Hyponatremia- improving Elevated troponin secondary to renal function, not suggestive of an acute coronary event Hypertension Dyslipidemia Diabetes mellitus PLAN We will continue current present medical theray with Eliquis, metoprolol succinate, statin, digoxin Nephrology following, continuing Lasix 40mg BID and follow renal function and electrolytes Follow renal function and electrolytes in the morning. Document accurate intake and output along with daily weights. From a cardiology perspective, patient is stable. With worsening renal function, will await nephrology input. Patient to follow up with Dr. Barlow in the office patient has an appointment 09/28/2020 Nurse Practitioner note has been reviewed, I agree with a documented findings and plan of care. Patient was seen and examined. Objective - Vital Signs Vital signs: Vital Signs Temp 97.6 F 09/17/20 11:25 Pulse 85 09/17/20 11:25 Resp 16 09/17/20 11:25 BP 92/52 09/17/20 11:25 Pulse Ox 98 09/17/20 11:25 Intake & Output 09/16/20 09/17/20 09/17/20 18:59 06:59 18:59 Intake Total 420 Output Total 350 300 500 Balance -350 -300 -80 Weight 90.718 kg Intake: Oral 420 Output: Urine 350 300 500 - Labs CBC & Chem 7: 09/16/20 08:08 09/17/20 06:43 Labs: Abnormal Lab Results - Last 24 Hours (Table) 09/15/20 09/16/20 09/16/20 Range/Units 22:22 16:23 17:49 Sodium 132 L (137-145) mmol/L Carbon Dioxide 19 L (22-30) mmol/L BUN 82 H (9-20) mg/dL Creatinine 3.32 H (0.66-1.25) mg/dL Glucose 139 H (74-99) mg/dL POC Glucose (mg/dL) 110 H (75-99) mg/dL Hemoglobin A1c 8.5 H (4.0-6.0) % Calcium 7.5 L (8.4-10.2) mg/dL 09/16/20 09/17/20 09/17/20 Range/Units 20:00 06:01 06:43 Sodium 133 L (137-145) mmol/L Carbon Dioxide 19 L (22-30) mmol/L BUN 82 H (9-20) mg/dL Creatinine 3.26 H (0.66-1.25) mg/dL Glucose 140 H (74-99) mg/dL POC Glucose (mg/dL) 160 H 136 H (75-99) mg/dL Hemoglobin A1c (4.0-6.0) % Calcium 7.5 L (8.4-10.2) mg/dL 09/17/20 Range/Units 11:42 Sodium (137-145) mmol/L Carbon Dioxide (22-30) mmol/L BUN (9-20) mg/dL Creatinine (0.66-1.25) mg/dL Glucose (74-99) mg/dL POC Glucose (mg/dL) 179 H (75-99) mg/dL Hemoglobin A1c (4.0-6.0) % Calcium (8.4-10.2) mg/dL
[2020-09-17 15:23] VITALS: BP 95/64; PULSE 75
[2020-09-17 16:42] LABS: Glucose,Whole Blood 178 mg/dL (75-99)
--- NOTE | 2020-09-18 01:13 | P.DS ---
Providers Date of admission: 09/17/20 02:19 Attending physician: Mackenzie Arana Consults: 09/15/20 23:23 Consult Physician Routine Consulting Provider: Kristy Burger Consult Reason/Comments: chf Do you want consulting provider notified?: Yes Consult Physician Routine Consulting Provider: Romi Beauchamp Consult Reason/Comments: arf Do you want consulting provider notified?: Yes Primary care physician: Beulah Reyes Hospital Course: Diagnoses: Worsening chronic kidney disease , rather than kidney injury Mild acute on chronic systolic CHF . Ejection fraction last week less than 20% hypervolemic hyponatremia Persistent troponin leak Noncompliance with dietary habits, drinking lots of fluids prior to admission Chronic kidney disease stage IV Chronic atrial fibrillation. Diabetes mellitus History of hypertension Hyperlipidemia History of coronary artery disease status post stent placement History of CVA/TIA Benign prostatic hypertrophy Chronic low back pain and osteoarthritis Hospital course: This is a pleasant 80 years old male with past medical history of diabetes mellitus, hypertension, hyperlipidemia, CHF, atrial fibrillation, coronary artery disease status post stent placement, CVA/TIA, osteoarthritis, Benign prostatic hypertrophy , chronic low back pain, severe ischemic cardiomyopathy status post AICD. Recently discharged from this hospital about 1 week ago for A. fib and RVR, acu te kidney injury Presents because of dyspnea present since his been discharged from the hospital with no improvement.Chest x-ray: Showed mild heart failure with small pleural effusion pulmonary pulmonary congestion is slightly increased compared to old exam. Patient was noncompliant and drink fluid for example coffee, tea and water. Patient has been evaluated by cardiology and nephrology service. He received extra doses of Lasix. Next a history dyspnea is improved and patient is back to his normal state. He denies any other symptoms, no chest pain or coughing. No abdominal pain or nausea vomiting. No diarrhea. His hemoglobin A1c was elevated at 8.5% patient was advised about better glucose monitoring and control and he was referred for outpatient endocrinology with Dr. Garcia, however patient did not want to follow-up with geology instructor, risks and benefits are explained for him Other than that patient is back to his normal self at baseline and he agrees to go home Patient was cleared for discharge by cardiology and nephrology services Problems and management plan were discussed with the patient and he verbalized understanding and acceptance Patient was found stable and can be discharged home however he needs follow-up as an outpatient. Patient was instructed to follow up with PCP Dr. Reyes within one week and patient agrees Patient was instructed to follow up with residential property tax appraiser Dr. Barlow on 09/[address] Beauchamp on 09/27 and he agrees with this appointment stating he will follow Physical exam Gen: patient is a AAOx3, no distress CVS: S1-S2, RRR, no murmur Lungs: B/L CTA, no wheezing Abdomen: soft, no distention, no tenderness, positive bowel sounds Extremity: no leg edema or induration Time spent more than 35 minutes Patient Condition at Discharge: Serious Plan - Discharge Summary Discharge Rx Participant: Yes New Discharge Prescriptions: New Digoxin [Lanoxin] 125 mcg PO DAILY #30 tab Sodium Bicarbonate Tab 650 mg PO DAILY #30 tab Continue Atorvastatin [Lipitor] 40 mg PO HS Tamsulosin [Flomax] 0.4 mg PO DAILY Insulin Glargine,Hum.rec.anlog [Lantus Solostar] 16 unit SQ DAILY Potassium Chloride [Klor-Con 10] 20 meq PO BID Metoprolol Succinate (ER) [Toprol XL] 50 mg PO DAILY #180 tab Insulin Lispro See Protocol SQ AC-TID PRN PRN Reason: HIGH BLOOD SUGAR Apixaban [Eliquis] 2.5 mg PO BID 30 Days #60 tablet Furosemide [Lasix] 40 mg PO BID@0900,1600 #60 tab Discharge Medication List Atorvastatin [Lipitor] 40 mg PO HS 11/11/18 [History] Insulin Glargine,Hum.rec.anlog [Lantus Solostar] 16 unit SQ DAILY 09/23/19 [History] Potassium Chloride [Klor-Con 10] 20 meq PO BID 09/23/19 [History] Tamsulosin [Flomax] 0.4 mg PO DAILY 09/23/19 [History] Metoprolol Succinate (ER) [Toprol XL] 50 mg PO DAILY #180 tab 09/29/19 [Rx] Insulin Lispro See Protocol SQ AC-TID PRN 09/07/20 [History] Apixaban [Eliquis] 2.5 mg PO BID 30 Days #60 tablet 09/09/20 [Rx] Furosemide [Lasix] 40 mg PO BID@0900,1600 #60 tab 09/10/20 [Rx] Digoxin [Lanoxin] 125 mcg PO DAILY #30 tab 07/30/21 [Rx] Sodium Bicarbonate Tab 650 mg PO DAILY #30 tab 09/17/20 [Rx] Follow up Appointment(s)/Referral(s): Romi Beauchamp MD [STAFF PHYSICIAN] - 09/27/20 9:00 am (appointment with Ashleigh Thacker NP) [facility] [NON-STAFF] - Rosita Garcia MD [STAFF PHYSICIAN] - 1 Week (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 Activity is restricted till you see your doctor we recommend check your glucose four times a day , before each meal and at bed time. keep your results in log book , and bring it to your doctor if your glucose is more than 400 or less than 70 then call 911 and come to emergency room Discharge Disposition: HOME WITH HOME HEALTH SERVICES
== END 2020-09-17 17:43 | disposition home health service (06) | DRG 291 ==
LOC: EC 22:05 → 3SCARD 23:26 → OBSVTOIN 09-17 02:19
PROVIDERS: ADMIT Hospitalist; ATTEND Hospitalist
DX: I13.0 Hypertensive heart and chronic kidney disease with heart failure and stage 1 through stage 4 chronic kidney disease, or unspecified chronic kidney disease (principal); I50.23 Acute on chronic systolic (congestive) heart failure; N18.4 Chronic kidney disease, stage 4 (severe); I48.19 Other persistent atrial fibrillation; N17.9 Acute kidney failure, unspecified; E87.1 Hypo-osmolality and hyponatremia; E87.2 Acidosis; R06.02 Shortness of breath; E11.22 Type 2 diabetes mellitus with diabetic chronic kidney disease; I25.2 Old myocardial infarction; Z79.01 Long term (current) use of anticoagulants; Z86.73 Personal history of transient ischemic attack (TIA), and cerebral infarction without residual deficits; E78.5 Hyperlipidemia, unspecified; Z83.3 Family history of diabetes mellitus; Z82.49 Family history of ischemic heart disease and other diseases of the circulatory system; Z80.1 Family history of malignant neoplasm of trachea, bronchus and lung; M19.90 Unspecified osteoarthritis, unspecified site; K59.00 Constipation, unspecified; Z91.11 Patient's noncompliance with dietary regimen; R00.0 Tachycardia, unspecified; R77.8 Other specified abnormalities of plasma proteins; N40.0 Benign prostatic hyperplasia without lower urinary tract symptoms; Z95.810 Presence of automatic (implantable) cardiac defibrillator; Z95.5 Presence of coronary angioplasty implant and graft; I25.10 Atherosclerotic heart disease of native coronary artery without angina pectoris; G89.29 Other chronic pain; M54.5 Low back pain; I95.89 Other hypotension; I25.5 Ischemic cardiomyopathy; I25.82 Chronic total occlusion of coronary artery; D64.9 Anemia, unspecified; I27.20 Pulmonary hypertension, unspecified; I45.9 Conduction disorder, unspecified; Z79.4 Long term (current) use of insulin; Z79.899 Other long term (current) drug therapy; Z91.19 Patient's noncompliance with other medical treatment and regimen
CPT/HCPCS: 36415; 71046; 76770; 80048; 80053; 81003; 82533; 82550; 83036; 83605; 83735; 83880; 84100; 84484; 85025; 85610; 85730; 93005; 96374; 99285